=== PATIENT | male | born 1975 | race Two or more races ===

== ENCOUNTER 2025-02-19 13:00 | Inpatient (IN) | payer MEDICAID, OTHER ==
[~2025-02-19] VITALS: Ht 172.7 cm; Wt 55.8 kg
--- NOTE | 2025-02-19 13:11 | ED.PDOC ---
History of Present Illness HPI Comments 49-year-old male who comes in with chief complaint of altered mental status. The patient recently got out [facility] a few months ago in his currently living with family. According to the family, the patient has been ill over the past three days and then this morning became somewhat altered. 911 was called and when the paramedics arrived, the patient had a systolic of around 70. The patient had a normal Accu-Chek. EN route, the patient remained altered but no nausea vomiting or diarrhea. The patient is unable to give us the history because he is only oriented x1. The patient is somewhat cachectic upon transport. Time Seen by MD: 13:04 Reviewed Notes: Nurses Notes, Limousine Driver Notes, Medications, Allergies (NKDA) Allergies: Coded Allergies: UNOBTAINABLE (Unverified , 02/19/25) PT IS ALOC, UNABLE TO OBTAIN Information Source: Patient, Emergency Med Personnel Mode of Arrival: EMS Severity: Moderate Timing: Days Duration: Since onset Prehospital treatment: Scientist Propagator, IVF Associated signs and symptoms Generalized weakness Past Medical History PAST MEDICAL HISTORY: GERD, Liver (Hepatitis-C) Past Medical History (Other): Waterfall's disease Surgical History: Unknown Family History Family History: Unknown Social History Smoker: Unknown Alcohol: Unknown Drugs: Unknown Lives In: Home Constitutional: reports: malaise, weakness; denies: chills, diaphoresis, fatigue, fever, sweats, others EENTM: denies: blurred vision, double vision, ear bleeding, ear discharge, ear drainage, ear pain, ear ringing, eye pain, eye redness, hearing loss, mouth pain, mouth swelling, nasal discharge, nose bleeding, nose congestion, nose pain, photophobia, tearing, throat pain, throat swelling, voice changes, others Respiratory: denies: cough, hemoptysis, orthopnea, SOB at rest, shortness of breath, SOB with excertion, stridor, wheezing, others Cardiovascular: denies: chest pain, dizzy spells, diaphoresis, Dyspnea on exertion, edema, irregular heart beat, left arm pain, lightheadedness, palpitations, PND, syncope, others Gastrointestinal: denies: abdomen distended, abdominal pain, blood streaked bowels, constipated, diarrhea, dysphagia, difficulty swallowing, hematemesis, melena, nausea, poor appetite, poor fluid intake, rectal bleeding, rectal pain, vomiting, others Genitourinary: denies: burning, dysuria, flank pain, frequency, hematuria, incontinence, penile discharge, penile sore, pain, testicle pain, testicle swelling, urgency, others Neurological: reports: others (Altered mental status); denies: dizziness, fainting, headache, left sided numbness, left sided weakness, numbness, paresthesia, pre-existing deficit, right sided numbness, right sided weakness, seizure, speech problems, tingling, tremors, weakness Musculoskeletal: denies: back pain, gout, joint pain, joint swelling, muscle pain, muscle stiffness, neck pain, others Integumetry: denies: bruises, change in color, change in hair/nails, dryness, laceration, lesions, lumps, rash, wounds, others Allergic/Immunocompromised: denies: Difficulty Healing, Frequent Infections, Hives, Itching, others Hematologic/Lymphatic: denies: anemia, blood clots, easy bleeding, easy bruising, swollen glands, others Endocrine: denies: excessive hunger, excessive sweating, excessive thirst, excessive urination, flushing, intolerance to cold, intolerance to heat, unexplained weight gain, unexplained weight loss, others Psychiatric: denies: anxiety, bipolar disorder, depression, hopeless, panic disorder, schizophrenia, sleepless, suicidal, others Physical Exam General Appearance: Moderate Distress HEENT: Pale Conjuntivae (L), Pale Conjuntivae (R), Pharynx Normal, TMs Normal Neck: Full Range of Motion, Non-Tender, Normal, Normal Inspection Respiratory: Chest Non-Tender, Lungs Clear, No Accessory Muscle Use, No Respiratory Distress, Normal Breath Sounds Cardiovascular: No Edema, No JVD, No Murmur, No Gallop, Normal Peripheral Pulses, Regular Rate/Rhythm Breast Exam: Deferred Gastrointestinal: No Organomegaly, Non Tender, No Pulsatile Mass, Normal Bowel Sounds, Soft Genitalia: Deferred Pelvic: Deferred Rectal: Deferred Extremities: No calf tenderness, Normal capillary refill, No pedal edema Musculoskeletal : Apperance: Normal Neurologic: nocturnist II-XII nml as Tested, Motor Weakness, Normal Affect, No Sensory Deficits, Other (Lethargic) Cerebellar Function: Unable to Test Reflexes: Normal Skin: Dry, Pallor, Warm Lymphatic: No Adenopathy Was a procedure done? Was a procedure done?: No EKG EKG : Pulse Rate (adult): 112 [place]ley: Normal Cardiac Rhythm: ST Block: None ST: Nonsp Differential Dx Considerations may include: Sepsis, overdose, generalized weakness, electrolyte imbalance X-Ray, Labs, Meds, VS Vital Signs Date Time Temp Pulse Resp B/P (MAP) Pulse Ox O2 Delivery O2 Flow Rate FiO2 02/19/25 13:50 Simple Mask* 10 99 02/19/25 13:50 98.0 107 44 96/63 (74) 90 98.0 02/19/25 13:23 99.0 110 16 95/67 (76) 94 99.0 02/19/25 13:11 112 Lab Test 02/19/25 14:25 02/19/25 13:26 Range/Units Blood Gas Specimen Type Arterial Blood Gas Sample Site Right radial Blood Gas Patient Temperature 37.0 Arterial Blood Date Drawn [id number] Arterial Blood pH 7.459 H 7.350-7.450 Arterial Blood Partial Pressure CO2 33.2 L 35.0-48.0 mmHg Arterial Blood Partial Pressure O2 98.4 83.0-108.0 mmHg Arterial Blood HCO3 23.0 21.0-28.0 mmol/L Arterial Blood Oxygen Saturation 97.1 94.0-98.0 % Arterial Blood Base Excess -0.1 -2.0-3.0 mmol/L Arterial Blood Oxyhemoglobin 96.1 94.0-98.0 % Arterial Blood Carboxyhemoglobin 0.6 0.5-1.5 % Arterial Blood Methemoglobin 0.4 0.0-1.5 % Ash Test Yes Blood Gas Total Hemoglobin 13.50 13.5-17.5 g/dL Blood Gas Liter Flow 10.00 Blood Gas Modality Mask - simple FiO2 % 60.0 White Blood Count 7.0 4.4-10.8 10^3/uL Red Blood Count 3.88 L 4.5-5.90 10^6/uL Hemoglobin 11.8 L 13.5-17.5 g/dL Hematocrit 36.1 L 41.0-53.0 % Mean Corpuscular Volume 93.0 80.0-100.0 fL Mean Corpuscular Hemoglobin 30.3 28.0-32.0 pg Mean Corpuscular Hemoglobin Concent 32.6 32.0-36.0 g/dL Red Cell Distribution Width 14.5 H 11.8-14.3 % Platelet Count 245 140-450 10^3/uL Mean Platelet Volume 10.6 6.9-10.8 fL Neutrophils (%) (Auto) 71.9 37.0-80.0 % Lymphocytes (%) (Auto) 14.9 10.0-50.0 % Monocytes (%) (Auto) 11.0 0.0-12.0 % Eosinophils (%) (Auto) 2.0 0.0-7.0 % Basophils (%) (Auto) 0.2 0.0-2.0 % Neutrophils # (Auto) 5.0 1.6-8.6 10 ^3/uL Lymphocytes # (Auto) 1.0 0.4-5.4 10 ^3/uL Monocytes # (Auto) 0.8 0-1.3 10 ^3/uL Eosinophils # (Auto) 0.1 0-0.8 10 ^3/uL Basophils # (Auto) 0 0-0.2 10 ^3/uL Nucleated Red Blood Cells 0.1 % Sodium Level 175 *H 136-145 mmol/L Potassium Level 4.0 3.5-5.1 mmol/L Chloride Level 138 H 98-107 mmol/L Carbon Dioxide Level 23 20-31 mmol/L Anion Gap 12 5-15 Blood Urea Nitrogen 53 H 9-23 mg/dL Creatinine 1.06 0.700-1.30 mg/dL Glomerular Filtration Rate Calc 85 >90 mL/min BUN/Creatinine Ratio 50.0 H 10.0-20.0 Serum Glucose 108 H 74-106 mg/dL Serum Osmolality 382 H 278-298 mOsm/kg Lactic Acid Level 1.5 0.4-2.0 mmol/L Calcium Level 9.5 8.7-10.4 mg/dL Total Bilirubin 0.4 0.2-1.0 mg/dL Direct Bilirubin 0.2 <0.3 mg/dL Aspartate Amino Transferase (AST) 40 13-40 U/L Alanine Aminotransferase (ALT) 37 7-40 U/L Alkaline Phosphatase 81 46-116 U/L Ammonia 12 11-32 umol/L Total Protein 7.5 5.7-8.2 g/dL Albumin 4.1 3.2-4.8 g/dL Beta-Hydroxybutyric Acid 0.384 < 0.4 mmol/L Thyroid Stimulating Hormone (TSH) 0.03 L 0.55-4.78 uIU/mL Plasma/Serum Blood Alcohol < 3.0 <10 mg/dL Current Medications Medications (Trade) Dose Ordered Sig/Jj Route Start Time Stop Time Status Last Admin Sodium Chloride 1,000 ml @ 150 mls/hr Q6H40M ONCE IV 02/19/25 13:15 02/19/25 14:12 DC 02/19/25 13:50 Lactated Ringer's 1,000 ml @ 150 mls/hr Q6H40M ONCE IV 02/19/25 14:15 02/19/25 14:42 DC 02/19/25 14:28 Dextrose 1,000 ml @ 150 mls/hr Q6H40M ONCE IV 02/19/25 14:45 02/19/25 15:38 DC 02/19/25 14:49 IV Hep-Lock was established. The patient was given dextrose IV secondary in his sodium level being elevated at 175 The rest of the chemistry panel is within normal limits except for a BUN of 53 and a chloride of 138 The ammonia level is within normal limits The CBC shows some anemia with a hemoglobin of 11.8 and hematocrit 36.1 The ABG shows metabolic alkalosis The patient remained somewhat hypotensive The patient is being admitted at this time Cat scan of the head shows no sign of any acute disease The chest x-ray shows: IMPRESSION: Bibasilar interstitial opacities which may reflect atelectasis, infection or edema. Images Reviewed?: Images reviewed and evaluated by me Time of 1ST Reevaluation: 13:10 Reevaluation 1ST: Unchanged (With the patient's) Patient Education/Counseling: Diagnosis, Treatment, Prognosis Family Education/Counseling: No Family Present Sepsis Sepsis Reasesment Focused Exam Orders: Laboratory Tests 02/19/25 13:26: Lactic Acid Level 1.5 Departure 1 Departure Time of Disposition: 21:46 Impression: Primary Impression: Generalized weakness Additional Impressions: Hypernatremia Metabolic alkalosis Dehydration Disposition: ADMITTED INPATIENT Condition: Critical Critical Care Note Critical Care Time?: Yes (55 min-critical care time only) Stability Stability form required: Yes Unstable for transfer: ICU, CCU, PCU, YSABEL (Intensive VS monitoring), ED Physician Assesment (Clinical assesment) Heart Score Heart Score: Heart Score Response (Comments) Value History Moderate Suspicious 1 EKG Normal 0 Age 45-64 1 Risk Factors No known risk factors 0 Troponin Normal limit 0 Total 2 CHARLES LAINEZ MD Feb 19, 2025 13:11
[2025-02-19 13:43] LABS: Basophils # (auto) 0 10 ^3/uL (0-0.2); Basophils % (auto) 0.2 % (0.0-2.0); Eosinophils # (auto) 0.1 10 ^3/uL (0-0.8); Hematocrit 36.1 % (41.0-53.0); Hemoglobin 11.8 g/dL (13.5-17.5); Lymphocytes % (auto) 14.9 % (10.0-50.0); Mean Corpuscular Hemoglobin 30.3 pg (28.0-32.0); Mean Corpuscular Hgb Conc. 32.6 g/dL (32.0-36.0); Monocytes # (auto) 0.8 10 ^3/uL (0-1.3); Neutrophils % (auto) 71.9 % (37.0-80.0); Nucleated Red Blood Cells % 0.1 %; Platelet Count (auto) 245 10^3/uL (140-450); Red Blood Cells 3.88 10^6/uL (4.5-5.90); Red Cell Distribution Width 14.5 % (11.8-14.3)
[2025-02-19] MEDS: SODIUM CHLORIDE 0.9% 1,000 ML IV ONE (13:50)
[2025-02-19 13:55] LABS: Anion Gap 12 (5-15); Calcium 9.5 mg/dL (8.7-10.4); Carbon Dioxide 23 mmol/L (20-31)
[2025-02-19 14:01] LABS: Blood Alcohol < 3.0 mg/dL (<10); Blood Urea Nitrogen 53 mg/dL (9-23); Chloride 138 mmol/L (98-107); Glucose 108 mg/dL (74-106)
[2025-02-19 14:02] LABS: Sodium 173 mmol/L (136-145)
[2025-02-19] MEDS: LACTATED RINGER'S 1,000 ML IV ONE (14:28)
--- NOTE | 2025-02-19 14:31 | DVH ---
EXAM: XY CHEST PORTABLE Indication: aloc Technique: Single frontal view of the chest was obtained Comparison: None FINDINGS: Lines and Tubes: None Lungs: Bibasilar interstitial opacities. Pleura: No effusion. No pneumothorax. Cardiomediastinal contours: Unremarkable Bones: No acute osseous abnormality. IMPRESSION: Bibasilar interstitial opacities which may reflect atelectasis, infection or edema.
[2025-02-19 14:34] LABS: Base Excess -0.1 mmol/L (-2.0-3.0)
[2025-02-19] MEDS: D5W 5% 1,000 ML IV ONE (14:49)
[2025-02-19] MEDS ORDERED: VANCOMYCIN PER PHARMACY 0 MG IV SCH (15:30)
[2025-02-19] MEDS: LORazepam 2MG/ML-1ML VIAL IV ONE (15:38)
[2025-02-19 16:10] LABS: Albumin 4.1 g/dL (3.2-4.8); Bilirubin, Direct 0.2 mg/dL (<0.3); Bilirubin, Total 0.4 mg/dL (0.2-1.0); Total Protein 7.5 g/dL (5.7-8.2)
[2025-02-19] MEDS ORDERED: DEXTROSE (50%) 50ML SYRG IV PRN (16:45)
[2025-02-19] MEDS: MEROPENEM 1GM IVPB 50 ML IV ONE (16:49)
[2025-02-19] MEDS: D5W 5% 1,000 ML IV SCH (16:49)
[2025-02-19] MEDS: VANCOMYCIN 1GM/200ML PM 200 ML IV ONE (17:07)
--- NOTE | 2025-02-19 17:40 | ECG ---
[facility] Test Date: 2025-02-19 Test Time: 13:06:07 Pat Name: ALFREDO MELENDEZ Department: ED Room: [address] [place] [address] Gender: M Technical Sourcing Recruiter: JANELL : 1975 Requested By: CHARLES LAINEZ Order Number: [id number] Reading MD: Jaswinder Romero Measurements Intervals [place] Rate: 112 P: 65 CT: 119 QRS: 50 QRSD: 80 T: -12 QT: 343 QTc: 469 Interpretive Statements Sinus tachycardia Low voltage, precordial leads Nonspecific T abnormalities, anterior leads Electronically Signed On 02-20-2025 9:34:52 PDT by Jaswinder Romero Please click the below link to view image of tracing.
[2025-02-19] MEDS: ACCU-CHEK COMFORT CURVE STRIP VI SCH (18:07)
--- NOTE | 2025-02-19 18:34 | DVH ---
CT HEAD WITHOUT CONTRAST Indication: [facility] EXAM DATE: 02/19/2025 03:50 PM COMPARISON: None TECHNIQUE: CT of the head without intravenous contrast. RADIATION DOSE: CTDIvol: 62.69 mGy, DLP: 1235.18 mGy*cm FINDINGS: There is no intracranial hemorrhage. There is no extra-axial fluid, mass, mass effect or midline shif t. The ventricles are midline and normal in size. Basilar cisterns are patent. There are [id number] rate periventricular and subcortical white matter chronic microvascular ischemic changes. Moderate gl obal cerebral volume loss. The paranasal sinuses and mastoids are well-pneumatized. Imaged portion of the orbits are unremarkabl e. IMPRESSION: 1. No intracranial hemorrhage or mass effect. 2. [id number]-[id number] chronic microvascular ischemic changes. 3. Moderate global cerebral volume loss.
[2025-02-19 19:12] VITALS: PULSE 122; RESP 30; O2SAT 92
[2025-02-19 19:12] LABS: Free T3 2.69 pg/mL (2.3-4.2)
[2025-02-19] MEDS: LEVALBUTEROL HCL 1.25 MG/3 ML NEB NEB SCH (19:12)
[2025-02-19] MEDS: IPRATROPIUM BROM 0.5 MG/2.5ML INH SOL NEB SCH (19:12)
[2025-02-19 19:13] LABS: Free T4 (Free Thyroxine) 1.3 ng/dL (0.89-1.76)
[2025-02-19 19:22] VITALS: PULSE 120; RESP 28; O2SAT 95
[2025-02-19 19:41] VITALS: BP 101/65; PULSE 120; RESP 28; TEMP 98; O2SAT 95
[2025-02-19 21:25] LABS: COVID19 ANTIGEN SOFIA FIA NEGATIVE (NEGATIVE)
[2025-02-19 21:26] LABS: Rapid Influenza A Negative (Negative); Rapid Influenza B Negative (Negative)
[2025-02-19 21:59] VITALS: PULSE 107; PULSE 110; RESP 26; RESP 28; O2SAT 83; O2SAT 96
[2025-02-19] MEDS: MEROPENEM 1GM IVPB 50 ML IV SCH (22:11)
[2025-02-20] VITALS (88 sets, daily range): BP systolic 67–224; BP diastolic 29–195; PULSE 55–154; RESP 8–45; TEMP 98.9–100.3; O2SAT 79–100
--- NOTE | 2025-02-20 00:48 | DVHHP2 ---
HOUST[place] FunezJUAN RESIDENT 02/20/25 0048: History of Present Illness Reason for Visit: AMS History of Present Illness 49-year-old male with PMHx of Huntingtons disease, Hepatitis C, GERD, mood disorder, and long incarceration history (released 2 months ago after 25 years), presented from home with 3 days of progressive weakness, altered mental status, poor oral intake, cough, foul-smelling urine, and constipation. Family states he has been off and was found hypotensive with SBP in the 70s by EMS. PMHx: GERD Hepatitis C Huntingtons disease Adjustment disorder Mood disorder History of MRSA Surgical History: Mandibular fracture (prior) Cystoscopy & ureteroscopy Family History: Unknown Social History: Formerly incarcerated 25 years; now living with family. Smoker, alcohol, drug use unknown Medications: Amantadine, benztropine, mirtazapine, lorazepam, risperidone, pantoprazole, propranolol, ferrous sulfate, lactulose, tamsulosin, deuterabenazine, naloxone nasal spray Allergies: NKDA Review of Systems Review of Systems unable to obtain Allergies: Coded Allergies: UNOBTAINABLE (Unverified , 02/19/25) PT IS ALOC, UNABLE TO OBTAIN Medications Current Medications Medications Dose Ordered Sig/Jj Route Start Time Stop Time Status Last Admin Dose Admin Meropenem 50 ml @ 17 mls/hr Q8HR IV 02/19/25 22:00 02/19/25 22:11 17 MLS/HR Vancomycin HCl 0 ml @ 0 mls/hr UD IV 02/19/25 15:30 Lorazepam 1 mg Q5MINP PRN IV 02/19/25 15:30 Dextrose 1,000 ml @ 150 mls/hr Q6H40M IV 02/19/25 15:45 02/19/25 22:31 150 MLS/HR Pantoprazole Sodium 40 mg DAILY IV 02/20/25 10:00 Diagnostic Test (Pha) 1 strip Q6HR 02/19/25 18:00 02/20/25 00:09 1 STRIP Dextrose 50 ml UD PRN IV 02/19/25 16:45 Enoxaparin Sodium 40 mg DAILY SC 02/20/25 10:00 Vancomycin HCl 150 ml @ 150 mls/hr Q12H IV 02/20/25 05:00 Levalbuterol HCl 1.25 mg Q4HR NEB 02/19/25 18:30 6/4/25 21:59 1.25 MG Ipratropium Post 0.5 mg Q4HR NEB 02/19/25 18:30 02/19/25 21:59 0.5 MG Exam Vital Signs Vital Signs Date Time Temp Pulse Resp B/P (MAP) Pulse Ox O2 Delivery O2 Flow Rate FiO2 02/20/25 00:00 108 02/19/25 21:59 28 83 02/19/25 20:00 98.8 106/64 (78) 98.8 02/19/25 19:41 10.0 02/19/25 19:22 Oxymizer 02/19/25 19:22 N/A General Appearance: moderate distress (AOX0), Other HEENT: Other (dry mouth, poor oral hygine ) Respiratory: Clear to auscultation Cardiovascular: Regular rate, Other (tachycardic) Abdominal: Soft Extremities: No edema Neuro: Other (caquectic ) Labs/Xrays Labs Test 02/20/25 00:07 02/19/25 22:06 02/19/25 20:07 02/19/25 18:13 Range/Units POC Glucose 133 H 70-106 mg/dl Sodium Level 173 *H 136-145 mmol/L Influenza Type A Antigen Negative Negative Influenza Type B Antigen Negative Negative SARS-CoV-2 Antigen (Rapid) Negative NEGATIVE Free Thyroxine (T4) Calculated 1.30 0.89-1.76 ng/dL Free Triiodothyronine (T3) pg/mL 2.69 2.3-4.2 pg/mL Test 02/19/25 14:25 02/19/25 13:26 Range/Units Blood Gas Specimen Type Arterial Blood Gas Sample Site Right radial Blood Gas Patient Temperature 37.0 Arterial Blood Date Drawn [id number] Arterial Blood pH 7.459 H 7.350-7.450 Arterial Blood Partial Pressure CO2 33.2 L 35.0-48.0 mmHg Arterial Blood Partial Pressure O2 98.4 83.0-108.0 mmHg Arterial Blood HCO3 23.0 21.0-28.0 mmol/L Arterial Blood Oxygen Saturation 97.1 94.0-98.0 % Arterial Blood Base Excess -0.1 -2.0-3.0 mmol/L Arterial Blood Oxyhemoglobin 96.1 94.0-98.0 % Arterial Blood Carboxyhemoglobin 0.6 0.5-1.5 % Arterial Blood Methemoglobin 0.4 0.0-1.5 % Ash Test Yes Blood Gas Total Hemoglobin 13.50 13.5-17.5 g/dL Blood Gas Liter Flow 10.00 Blood Gas Modality Mask - simple FiO2 % 60.0 White Blood Count 7.0 4.4-10.8 10^3/uL Red Blood Count 3.88 L 4.5-5.90 10^6/uL Hemoglobin 11.8 L 13.5-17.5 g/dL Hematocrit 36.1 L 41.0-53.0 % Mean Corpuscular Volume 93.0 80.0-100.0 fL Mean Corpuscular Hemoglobin 30.3 28.0-32.0 pg Mean Corpuscular Hemoglobin Concent 32.6 32.0-36.0 g/dL Red Cell Distribution Width 14.5 H 11.8-14.3 % Platelet Count 245 140-450 10^3/uL Mean Platelet Volume 10.6 6.9-10.8 fL Neutrophils (%) (Auto) 71.9 37.0-80.0 % Lymphocytes (%) (Auto) 14.9 10.0-50.0 % Monocytes (%) (Auto) 11.0 0.0-12.0 % Eosinophils (%) (Auto) 2.0 0.0-7.0 % Basophils (%) (Auto) 0.2 0.0-2.0 % Neutrophils # (Auto) 5.0 1.6-8.6 10 ^3/uL Lymphocytes # (Auto) 1.0 0.4-5.4 10 ^3/uL Monocytes # (Auto) 0.8 0-1.3 10 ^3/uL Eosinophils # (Auto) 0.1 0-0.8 10 ^3/uL Basophils # (Auto) 0 0-0.2 10 ^3/uL Nucleated Red Blood Cells 0.1 % Potassium Level 4.0 3.5-5.1 mmol/L Chloride Level 138 H 98-107 mmol/L Carbon Dioxide Level 23 20-31 mmol/L Anion Gap 12 5-15 Blood Urea Nitrogen 53 H 9-23 mg/dL Creatinine 1.06 0.700-1.30 mg/dL Glomerular Filtration Rate Calc 85 >90 mL/min BUN/Creatinine Ratio 50.0 H 10.0-20.0 Serum Glucose 108 H 74-106 mg/dL Serum Osmolality 382 H 278-298 mOsm/kg Lactic Acid Level 1.5 0.4-2.0 mmol/L Calcium Level 9.5 8.7-10.4 mg/dL Total Bilirubin 0.4 0.2-1.0 mg/dL Direct Bilirubin 0.2 <0.3 mg/dL Aspartate Amino Transferase (AST) 40 13-40 U/L Alanine Aminotransferase (ALT) 37 7-40 U/L Alkaline Phosphatase 81 46-116 U/L Ammonia 12 11-32 umol/L Total Protein 7.5 5.7-8.2 g/dL Albumin 4.1 3.2-4.8 g/dL Beta-Hydroxybutyric Acid 0.384 < 0.4 mmol/L Thyroid Stimulating Hormone (TSH) 0.03 L 0.55-4.78 uIU/mL Plasma/Serum Blood Alcohol < 3.0 <10 mg/dL Assessment/Plan Assessment/Plan #Acute metabolic encephalopathy likely multifactorial (sepsis, Huntingtons, chronic illness, electrolyte derangement) #Severe Hypernatremia (Na 175), likely chronic NPO ICU status Slow correction with D5W 150cc/h Monitor Na q4h, avoid rapid shifts #[place] disease Oral meds will be restarted after stabilization home meds: amantadine, benztropine, mirtazapine, deuterabenazine Continue supportive care DNR/DNI: chemical code CT head: ischemic chronic changes, global atrophy #Sepsis Likely secondary to UTI and Aspiration pneumonia #Complicated UTI #Possible pneumonia gram +/ gram- . CXR reviewed Blood and urine cultures, UA pending Started on IV fluids, vancomycin, meropenem Fry insertion ordered #Constipation lactulose will be restarted after stabilization #GERD Protonix IV #Ho/Hepatitis C monitor Disposition: ICU due to severe hypernatremia Code status: chemical code: no compressions, no defibrillation, no intubation, discussed with the brother for 22 min Case discussed with Dr Alfred Ambrocio discussed with: Other (brother, rn ) My Orders Orders - JUAN CRUZ RESIDENT Procedure Category Date Status Time Urine Sodium LAB 02/19/25 Logged 14:46 Admit ADMIT 02/19/25 Transmitted 15:23 Code Status CODE 02/19/25 Transmitted 15:23 Vital Signs ELIER 02/19/25 In Process 15:23 Review Orders With ELIER 02/19/25 In Process Adm. 15:23 Npo (Nothing By DIET 02/19/25 Transmitted Mouth) Diet Dinner Notify Md Of Changes ELIER 02/19/25 In Process From Base 15:23 Advance Directive ELIER 02/19/25 In Process 15:23 Patient Condition ORDERS 02/19/25 Transmitted 15:23 Allergies ELIER 02/19/25 In Process 15:23 Meropenem 1gm Ivpb PHA 02/19/25 In Process (Merrem 1gm/ Ns) 22:00 Vancomycin Per PHA 02/19/25 In Process Pharmacy 15:30 Respiratory Culture TRINH 02/19/25 Logged W/ Gs 15:28 Urine Bacterial TRINH 02/19/25 Logged Culture 15:28 Mrsa Screen TRINH 02/19/25 In Process 15:28 Strict Aspiration ELIER 02/19/25 In Process Precautions 15:28 Lorazepam 2mg/Ml Inj PHA 02/19/25 In Process (Ativan Inj) 15:30 Insert Midline ORDERS 02/19/25 Transmitted 15:30 Sodium LAB 02/20/25 Logged 02:00 Sodium LAB 02/20/25 Logged 06:00 Sodium LAB 02/20/25 Logged 10:00 Sodium LAB 02/20/25 Logged 14:00 Sodium LAB 02/20/25 Logged 18:00 Sodium LAB 02/20/25 Logged 22:00 D5w 5% (Dextrose 5%) PHA 02/19/25 In Process 15:45 Acute Hepatitis Panel LAB 02/19/25 In Process 15:37 Pantoprazole PHA 02/20/25 In Process (Protonix) 10:[address] 02/19/25 Resulted 15:39 Insert Fry Catheter ELIER 02/19/25 In Process 15:55 Communication Order ORDERS 02/19/25 Transmitted 15:55 Glucose Blood PHA 02/19/25 In Process (Accu-Chek Comfort 18:00 Dextrose 50% Syringe PHA 02/19/25 In Process 16:45 Enoxaparin Sodium PHA 02/20/25 In Process (Lovenox) 10:00 Vancomycin PHA 02/20/25 In Process 750mg/150ml 05:00 Vancomycin,Trough LAB 02/21/25 Verified 04:00 Vancomycin Per ELIER 02/21/25 In Process Pharmacy Protoc 05:00 Creatinine LAB 02/21/25 Verified 04:00 Creatinine LAB 02/20/25 Logged 06:00 Date of Service: Feb 19, 2025 Billing Provider: VY LEE MD Common Visit Codes: 09588-[id number] INP/OBS CARE (HIGH), 54642-[id number] CARE 30- 74 MIN Secondary Visit Codes: 95332-[id number] CARE PLAN 30 MINUTES VY LEE MD 02/20/25 1344: Review of Systems Allergies: Coded Allergies: UNOBTAINABLE (Unverified , 02/19/25) PT IS ALOC, UNABLE TO OBTAIN Date of Service: Feb 19, 2025 Billing Provider: VY LEE MD Common Visit Codes: 00356-[id number] CARE 30-74 MIN (critical care time spent 60 minutes) JAUN CRUZ RESIDENT Feb 20, 2025 00:48 VY LEE MD Feb 20, 2025 13:44
[2025-02-20] MEDS: LORazepam 2MG/ML-1ML VIAL IV ONE (01:07)
[2025-02-20] MEDS: NOREPINEPHRINE 8 MG/250ML KIT 250 ML IV ONE (04:32)
[2025-02-20] MEDS: VANCOMYCIN 750mg/150ml 150 ML IV SCH (04:40)
[2025-02-20] MEDS: NOREPINEPHRINE 8 MG/250ML KIT 250 ML IV SCH ×2 (04:41→05:45)
[2025-02-20 06:34] LABS: Basophils # (auto) 0 10 ^3/uL (0-0.2); Basophils % (auto) 0.2 % (0.0-2.0); Eosinophils # (auto) 0.2 10 ^3/uL (0-0.8); Eosinophils % (auto) 3.5 % (0.0-7.0); Hematocrit 42.8 % (41.0-53.0); Hemoglobin 13.5 g/dL (13.5-17.5); Lymphocytes # (auto) 0.9 10 ^3/uL (0.4-5.4); Lymphocytes % (auto) 12.9 % (10.0-50.0); Mean Corpuscular Hemoglobin 30.1 pg (28.0-32.0); Mean Corpuscular Hgb Conc. 31.6 g/dL (32.0-36.0); Mean Corpuscular Volume 95.4 fL (80.0-100.0); Monocytes # (auto) 0.7 10 ^3/uL (0-1.3); Monocytes % (auto) 10.9 % (0.0-12.0); Neutrophils # (auto) 4.8 10 ^3/uL (1.6-8.6); Neutrophils % (auto) 72.5 % (37.0-80.0); Nucleated Red Blood Cells % 0.1 %; Platelet Count (auto) 202 10^3/uL (140-450); Red Blood Cells 4.49 10^6/uL (4.5-5.90); Red Cell Distribution Width 15.5 % (11.8-14.3); White Blood Cell 6.6 10^3/uL (4.4-10.8)
[2025-02-20 06:46] LABS: Alanine Aminotransferase 38 U/L (7-40); Albumin 4.1 g/dL (3.2-4.8); Alkaline Phosphatase 80 U/L (46-116); Anion Gap 14 (5-15); BUN/Creatinine Ratio 39.6 (10.0-20.0); Bilirubin, Total 0.3 mg/dL (0.2-1.0); Calcium 9.2 mg/dL (8.7-10.4); Carbon Dioxide 21 mmol/L (20-31); Potassium 4.6 mmol/L (3.5-5.1); Total Protein 7.5 g/dL (5.7-8.2)
[2025-02-20] MEDS: LORazepam 2MG/ML-1ML VIAL IM ONE (07:18)
[2025-02-20 07:32] LABS: Chloride 132 mmol/L (98-107)
[2025-02-20 07:33] LABS: Aspartate Aminotransferase 45 U/L (13-40); Blood Urea Nitrogen 40 mg/dL (9-23); Glucose 162 mg/dL (74-106)
[2025-02-20 07:34] LABS: Sodium 167 mmol/L (136-145)
[2025-02-20] MEDS: PANTOPRAZOLE 40 MG/10 ML VIAL INJ IV SCH (10:15)
[2025-02-20] MEDS: ENOXAPARIN SOD 40 MG/0.4 ML SYRINGE SC SCH (10:27)
[2025-02-20 10:44] LABS: Magnesium 3.2 mg/dL (1.6-2.6)
[2025-02-20 10:45] LABS: Phosphorus 3.6 mg/dL (2.4-5.1)
[2025-02-20] MEDS: HALOPERIDOL LACTATE 5 MG/ML INJ VIAL IM PRN ×2 (10:47→18:32)
--- NOTE | 2025-02-20 11:56 | DVHPNRES ---
Progress Note Date Seen: Feb 20, 2025 Resident Creating Document: JUAN CRUZ RESIDENT Has the PT tested + for MRSA If YES, has PT been informed?: No Medical Necessity Reason Pt with a Central, PICC or Fol: No Subjective Review of Systems 49-year-old male with PMHx of Huntingtons disease, Hepatitis C, GERD, mood disorder, and long incarceration history (released 2 months ago after 25 years), presented from home with 3 days of progressive weakness, altered mental status, poor oral intake, cough, foul-smelling urine, and constipation. Family states he has been off and was found hypotensive with SBP in the 70s by EMS. PMHx: GERD Hepatitis C Huntingtons disease Adjustment disorder Mood disorder History of MRSA Surgical History: Mandibular fracture (prior) Cystoscopy & ureteroscopy Family History: Unknown Social History: Formerly incarcerated 25 years; now living with family. Smoker, alcohol, drug use unknown Medications: Amantadine, benztropine, mirtazapine, lorazepam, risperidone, pantoprazole, propranolol, ferrous sulfate, lactulose, tamsulosin, deuterabenazine, naloxone nasal spray 02/20/2025: Na 165, continue D5W at 150cc/h, urology consulted, CT scan ordered: showed bladder thickening, possible lung consolidations and large volume stool, bladder scan less than 200 no need of cystostomy for now but if distention suprapubic puncture will be performed, mild fevers, continue vanco/ meropenem, patient was in low dose levophed since midnight Objective vital signs Vital Sign Date Time Temp Pulse Resp B/P (MAP) Pulse Ox O2 Delivery O2 Flow Rate FiO2 02/20/25 10:04 106 17 97 02/20/25 09:00 90/52 (65) 02/20/25 08:16 98.9 98.9 02/20/25 06:16 Oxymizer 12.0 02/20/25 06:16 N/A Total Intake and Output 02/19/25 02/19/25 02/20/25 15:00 23:00 07:00 Intake Total 1250 ml 950.5 ml Balance 1250 ml 950.5 ml medications Current Medications Medications Dose Ordered Sig/Jj Route Start Time Stop Time Status Last Admin Dose Admin Meropenem 50 ml @ 17 mls/hr Q8HR IV 02/19/25 22:00 02/20/25 06:04 17 MLS/HR Vancomycin HCl 0 ml @ 0 mls/hr UD IV 02/19/25 15:30 Lorazepam 1 mg Q5MINP PRN IV 02/19/25 15:30 Dextrose 1,000 ml @ 150 mls/hr Q6H40M IV 02/19/25 15:45 02/20/25 03:49 150 MLS/HR Pantoprazole Sodium 40 mg DAILY IV 02/20/25 10:00 02/20/25 10:15 40 MG Diagnostic Test (Pha) 1 strip Q6HR 02/19/25 18:00 02/20/25 06:28 1 STRIP Dextrose 50 ml UD PRN IV 02/19/25 16:45 Enoxaparin Sodium 40 mg DAILY SC 02/20/25 10:00 02/20/25 10:27 40 MG Vancomycin HCl 150 ml @ 150 mls/hr Q12H IV 02/20/25 05:00 02/20/25 04:40 150 MLS/HR Levalbuterol HCl 1.25 mg Q4HR NEB 02/19/25 18:30 02/20/25 09:49 1.25 MG Ipratropium [place] 0.5 mg Q4HR NEB 02/19/25 18:30 02/20/25 09:49 0.5 MG Norepinephrine Bitartrate 250 ml @ 3.75 mls/hr Q24H IV 02/20/25 05:45 Haloperidol Lactate 2.5 mg Q8HP PRN IM 02/20/25 10:00 02/20/25 10:47 2.5 MG Examination General Appearance: moderate distress (AOX0), Other HEENT: Other (dry mouth, poor oral hygine ) Respiratory: Clear to auscultation Cardiovascular: Regular rate, Other (tachycardic) Abdominal: Soft Extremities: No edema Neuro: Other (caquectic ) laboratory and microbiology Laboratory Tests 02/20/25 10:21 02/20/25 05:53 Test 02/20/25 05:53 Range/Units Serum Glucose 162 H 74-106 mg/dL Problem List/Assessment/Plan Problem List/Assessment/Plan #Acute metabolic encephalopathy likely multifactorial (sepsis, Huntingtons, chronic illness, electrolyte derangement) #Severe Hypernatremia (Na 175), likely chronic NPO ICU status Slow correction with D5W 150cc/h Monitor Na q4h, avoid rapid shifts #[place] disease Oral meds will be restarted after stabilization home meds: amantadine, benztropine, mirtazapine, deuterabenazine Continue supportive care DNR/DNI: chemical code CT head: ischemic chronic changes, global atrophy #Sepsis Likely secondary to UTI and Aspiration pneumonia levophed 0.5 mcg #Complicated UTI #Possible pneumonia gram +/ gram- . CXR reviewed Blood and urine cultures, UA pending Started on IV fluids, vancomycin, meropenem CT scan ordered: showed bladder thickening, possible lung consolidations and large volume stool #Constipation lactulose will be restarted after stabilization #GERD Protonix IV #Ho/Hepatitis C monitor #Urethral stricture disease #Possible false urethral passage #Urinary incontinence Bladder scan: 197 cc If bladder is distended, please request Interventional Radiology to place a temporary suprapubic catheter. When patient was metabolically stable, we will consider performing a diagnostic cystoscopy and possible DVIU 02/20/2025: Na 165, continue D5W at 150cc/h, urology consulted, CT scan ordered: showed bladder thickening, possible lung consolidations and large volume stool, bladder scan less than 200 no need of cystostomy for now but if distention suprapubic puncture will be performed, mild fevers, continue vanco/ meropenem, patient was in low dose levophed since midnight Disposition: ICU due to severe hypernatremia Code status: chemical code: no compressions, no defibrillation, no intubation, discussed with the brother for 22 min Case discussed with Dr Lee Plan discussed with: Patient, Other My Orders My Orders Orders - JUAN CRUZ RESIDENT Procedure Category Date Status Time Admit ADMIT 02/19/25 Transmitted 15:23 Code Status CODE 02/19/25 Transmitted 15:23 Vital Signs ELIER 02/19/25 In Process 15:23 Review Orders With ELIER 02/19/25 In Process Adm. 15:23 Npo (Nothing By DIET 02/19/25 Transmitted Mouth) Diet Dinner Notify Md Of Changes ELIER 02/19/25 In Process From Base 15:23 Advance Directive ELIER 02/19/25 In Process 15:23 Patient Condition ORDERS 02/19/25 Transmitted 15:23 Allergies ELIER 02/19/25 In Process 15:23 Meropenem 1gm Ivpb PHA 02/19/25 In Process (Merrem 1gm/ Ns) 22:00 Vancomycin Per PHA 02/19/25 In Process Pharmacy 15:30 Respiratory Culture TRINH 02/19/25 Logged W/ Gs 15:28 Urine Bacterial TRINH 02/19/25 Logged Culture 15:28 Mrsa Screen TRINH 02/19/25 In Process 15:28 Strict Aspiration ELIER 02/19/25 In Process Precautions 15:28 Lorazepam 2mg/Ml Inj PHA 02/19/25 In Process (Ativan Inj) 15:30 Insert Midline ORDERS 02/19/25 Transmitted 15:30 Sodium LAB 02/20/25 Logged 14:00 Sodium LAB 02/20/25 Logged 18:00 Sodium LAB 02/20/25 Logged 22:00 D5w 5% (Dextrose 5%) PHA 02/19/25 In Process 15:45 Acute Hepatitis Panel LAB 02/19/25 In Process 15:37 Pantoprazole PHA 02/20/25 In Process (Protonix) 10:[address] 02/19/25 Resulted 15:39 Insert Fry Catheter ELIER 02/19/25 In Process 15:55 Communication Order ORDERS 02/19/25 Transmitted 15:55 Glucose Blood PHA 02/19/25 In Process (Accu-Chek Comfort 18:00 Dextrose 50% Syringe PHA 02/19/25 In Process 16:45 Enoxaparin Sodium PHA 02/20/25 In Process (Lovenox) 10:00 Vancomycin PHA 02/20/25 In Process 750mg/150ml 05:00 Vancomycin,Trough LAB 02/21/25 Verified 04:00 Vancomycin Per ELIER 02/21/25 In Process Pharmacy Protoc 05:00 Creatinine LAB 02/21/25 Verified 04:00 * Wound Consult CONS 02/20/25 Transmitted Strict I & O ELIER 02/20/25 In Process 09:32 Haloperidol Lactate PHA 02/20/25 In Process Injection (Haldol) 10:00 * Swallow Request ST 02/20/25 Transmitted 09:59 * Picc Line Consult CONS 02/20/25 Transmitted 11:23 Date of Service: Feb 20, 2025 Billing Provider: VY LEE MD Common Visit Codes: 33709-[id number] INP/OBS CARE(HIGH) JUAN CRUZ RESIDENT Feb 20, 2025 11:56 VY LEE MD Feb 21, 2025 20:11
--- NOTE | 2025-02-20 15:01 | DVHINCON2 ---
Date of service: Feb 20, 2025 Referring Physician Hospitalist Reason for Consultation Unable to place catheter Urinary incontinence History of Present Illness 49-year-old male who comes in with chief complaint of altered mental status. The patient recently got out of long term a few months ago in his currently living with family. According to the family, the patient has been ill over the past three days and then this morning became somewhat altered. 911 was called and when the paramedics arrived, the patient had a systolic of around 70. The patient had a normal Accu-Chek. EN route, the patient remained altered but no nausea vomiting or diarrhea. The patient is unable to give us the history because he is only oriented x1. The patient is somewhat cachectic upon transport. Reviewed Notes: Nurses Notes, Senior Marketing Specialist Notes, Medications, Allergies (NKDA) Allergies: Coded Allergies: UNOBTAINABLE (Unverified , 02/19/25) PT IS ALOC, UNABLE TO OBTAIN Information Source: Patient, Emergency Med Personnel Mode of Arrival: EMS Severity: Moderate Timing: Days Duration: Since onset Prehospital treatment: Pressure Tester Operator, IVF Associated signs and symptoms Generalized weakness Past Medical History GERD, Liver (Hepatitis-C) Past Medical History (Other): [place]'s disease Past Surgical History Previous history of suprapubic catheter placement Allergies: Coded Allergies: UNOBTAINABLE (Unverified , 02/19/25) PT IS ALOC, UNABLE TO OBTAIN Current Medications Current Medications Medications (Trade) Dose Ordered Sig/Jj Route PRN Reason Start Time Stop Time Status Last Admin Meropenem 50 ml @ 17 mls/hr Q8HR IV 02/19/25 22:00 02/20/25 14:24 Vancomycin HCl 0 ml @ 0 mls/hr UD IV 02/19/25 15:30 Lorazepam (Ativan Inj) 1 mg Q5MINP PRN IV SEIZURES 02/19/25 15:30 Dextrose 1,000 ml @ 150 mls/hr Q6H40M IV 02/19/25 15:45 02/20/25 12:37 Pantoprazole Sodium (Protonix) 40 mg DAILY IV 02/20/25 10:00 02/20/25 10:15 Diagnostic Test (Pha) (Accu-Chek Comfort Curve T) 1 strip Q6HR 02/19/25 18:00 02/20/25 12:38 Dextrose 50 ml UD PRN IV Blood Sugar LESS THAN 60 02/19/25 16:45 Enoxaparin Sodium (Lovenox) 40 mg DAILY SC 02/20/25 10:00 02/20/25 10:27 Vancomycin HCl 150 ml @ 150 mls/hr Q12H IV 02/20/25 05:00 02/20/25 04:40 Levalbuterol HCl (Xopenex Medneb) 1.25 mg Q4HR NEB 02/19/25 18:30 02/20/25 14:05 Ipratropium [place] (Atrovent Medneb) 0.5 mg Q4HR NEB 02/19/25 18:30 02/20/25 14:05 Norepinephrine Bitartrate 250 ml @ 3.75 mls/hr Q24H IV 02/20/25 04:30 02/20/25 05:37 DC 02/20/25 04:41 Norepinephrine Bitartrate 250 ml @ 3.75 mls/hr Q24H IV 02/20/25 05:45 Haloperidol Lactate (Haldol) 2.5 mg Q8HP PRN IM AGITATION 02/20/25 10:00 02/20/25 13:39 DC 02/20/25 10:47 Haloperidol Lactate (Haldol) 5 mg Q8HP PRN IM AGITATION 02/20/25 13:45 Review of Systems Constitutional: reports: malaise, weakness; denies: chills, diaphoresis, fatigue, fever, sweats, others EENTM: denies: blurred vision, double vision, ear bleeding, ear discharge, ear drainage, ear pain, ear ringing, eye pain, eye redness, hearing loss, mouth pain, mouth swelling, nasal discharge, nose bleeding, nose congestion, nose leeanna n, photophobia, tearing, throat pain, throat swelling, voice changes, others Respiratory: denies: cough, hemoptysis, orthopnea, SOB at rest, shortness of breath, SOB with excertion, stridor, wheezing, others Cardiovascular: denies: chest pain, dizzy spells, diaphoresis, Dyspnea on exertion, edema, irregular heart beat, left arm pain, lightheadedness, palpitations, PND, syncope, others Gastrointestinal: denies: abdomen distended, abdominal pain, blood streaked bowels, constipated, diarrhea, dysphagia, difficulty swallowing, hematemesis, melena, nausea, poor appetite, poor fluid intake, rectal bleeding, rectal pain, vomiting, others Genitourinary: Patient has urinary incontinence Neurological: reports: others (Altered mental status); denies: dizziness, fainting, headache, left sided numbness, left sided weakness, numbness, paresthesia, pre-existing deficit, right sided numbness, right sided weakness, seizure, speech problems, tingling, tremors, weakness Musculoskeletal: denies: back pain, gout, joint pain, joint swelling, muscle pain, muscle stiffness, neck pain, others Integumetry: denies: bruises, change in color, change in hair/nails, dryness, laceration, lesions, lumps, rash, wounds, others Allergic/Immunocompromised: denies: Difficulty Healing, Frequent Infections, Hives, Itching, others Hematologic/Lymphatic: denies: anemia, blood clots, easy bleeding, easy bruising, swollen glands, others Endocrine: denies: excessive hunger, excessive sweating, excessive thirst, excessive urination, flushing, intolerance to cold, intolerance to heat, unexpla ined weight gain, unexplained weight loss, others Psychiatric: denies: anxiety, bipolar disorder, depression, hopeless, panic disorder, schizophrenia, sleepless, suicidal, others Vital Signs Vital Signs Date Time Temp Pulse Resp B/P (MAP) Pulse Ox O2 Delivery O2 Flow Rate FiO2 02/20/25 14:20 92 22 99 02/20/25 13:26 104/29 (54) 02/20/25 12:01 99.6 99.6 02/20/25 06:16 Oxymizer 12.0 02/20/25 06:16 N/A Physical Exam General Appearance: Moderate Distress HEENT: Pale Conjuntivae (L), Pale Conjuntivae (R), Pharynx Normal, TMs Normal Neck: Full Range of Motion, Non-Tender, Normal, Normal Inspection Respiratory: Chest Non-Tender, Lungs Clear, No Accessory Muscle Use, No Respiratory Distress, Normal Breath Sounds Cardiovascular: No Edema, No JVD, No Murmur, No Gallop, Normal Peripheral Pulses, Regular Rate/Rhythm Breast Exam: Deferred Gastrointestinal: No Organomegaly, Non Tender, No Pulsatile Mass, Normal Bowel Sounds, Soft Genitalia: Normal external genitalia Pelvic: Deferred Rectal: Deferred Extremities: No calf tenderness, Normal capillary refill, No pedal edema Musculoskeletal : Apperance: Normal Neurologic: staff climate scientist II-XII nml as Tested, Motor Weakness, Normal Affect, No Sensory Deficits, Other (Lethargic) Cerebellar Function: Unable to Test Reflexes: Normal Skin: Dry, Pallor, Warm Lymphatic: No Adenopathy Labs/Diagnostic Data Labs Test 02/20/25 14:46 02/20/25 06:13 02/20/25 05:53 02/19/25 22:06 Range/Units POC Glucose 149 H 70-106 mg/dl White Blood Count 6.6 4.4-10.8 10^3/uL Red Blood Count 4.49 L 4.5-5.90 10^6/uL Hemoglobin 13.5 13.5-17.5 g/dL Hematocrit 42.8 # 41.0-53.0 % Mean Corpuscular Volume 95.4 80.0-100.0 fL Mean Corpuscular Hemoglobin 30.1 28.0-32.0 pg Mean Corpuscular Hemoglobin Concent 31.6 L 32.0-36.0 g/dL Red Cell Distribution Width 15.5 H 11.8-14.3 % Platelet Count 202 140-450 10^3/uL Mean Platelet Volume 10.8 6.9-10.8 fL Neutrophils (%) (Auto) 72.5 37.0-80.0 % Lymphocytes (%) (Auto) 12.9 10.0-50.0 % Monocytes (%) (Auto) 10.9 0.0-12.0 % Eosinophils (%) (Auto) 3.5 0.0-7.0 % Basophils (%) (Auto) 0.2 0.0-2.0 % Neutrophils # (Auto) 4.8 1.6-8.6 10 ^3/uL Lymphocytes # (Auto) 0.9 0.4-5.4 10 ^3/uL Monocytes # (Auto) 0.7 0-1.3 10 ^3/uL Eosinophils # (Auto) 0.2 0-0.8 10 ^3/uL Basophils # (Auto) 0 0-0.2 10 ^3/uL Nucleated Red Blood Cells 0.1 % Potassium Level 4.6 3.5-5.1 mmol/L Chloride Level 132 H 98-107 mmol/L Carbon Dioxide Level 21 20-31 mmol/L Anion Gap 14 5-15 Blood Urea Nitrogen 40 #H 9-23 mg/dL Creatinine 1.01 0.700-1.30 mg/dL Glomerular Filtration Rate Calc 90 >90 mL/min BUN/Creatinine Ratio 39.6 H 10.0-20.0 Serum Glucose 162 H 74-106 mg/dL Hemoglobin A1c 5.0 <5.7 % A1C Calcium Level 9.2 8.7-10.4 mg/dL Phosphorus Level 3.6 2.4-5.1 mg/dL Magnesium Level 3.2 H 1.6-2.6 mg/dL Total Bilirubin 0.3 0.2-1.0 mg/dL Aspartate Amino Transferase (AST) 45 H 13-40 U/L Alanine Aminotransferase (ALT) 38 7-40 U/L Alkaline Phosphatase 80 46-116 U/L Total Protein 7.5 5.7-8.2 g/dL Albumin 4.1 3.2-4.8 g/dL Test 02/19/25 20:07 02/19/25 18:13 02/19/25 14:25 02/19/25 13:26 Range/Units Influenza Type A Antigen Negative Negative Influenza Type B Antigen Negative Negative SARS-CoV-2 Antigen (Rapid) Negative NEGATIVE Free Thyroxine (T4) Calculated 1.30 0.89-1.76 ng/dL Free Triiodothyronine (T3) pg/mL 2.69 2.3-4.2 pg/mL Blood Gas Specimen Type Arterial Blood Gas Sample Site Right radial Blood Gas Patient Temperature 37.0 Arterial Blood Date Drawn [id number] Arterial Blood pH 7.459 H 7.350-7.450 Arterial Blood Partial Pressure CO2 33.2 L 35.0-48.0 mmHg Arterial Blood Partial Pressure O2 98.4 83.0-108.0 mmHg Arterial Blood HCO3 23.0 21.0-28.0 mmol/L Arterial Blood Oxygen Saturation 97.1 94.0-98.0 % Arterial Blood Base Excess -0.1 -2.0-3.0 mmol/L Arterial Blood Oxyhemoglobin 96.1 94.0-98.0 % Arterial Blood Carboxyhemoglobin 0.6 0.5-1.5 % Arterial Blood Methemoglobin 0.4 0.0-1.5 % Ash Test Yes Blood Gas Total Hemoglobin 13.50 13.5-17.5 g/dL Blood Gas Liter Flow 10.00 Blood Gas Modality Mask - simple FiO2 % 60.0 Serum Osmolality 382 H 278-298 mOsm/kg Lactic Acid Level 1.5 0.4-2.0 mmol/L Direct Bilirubin 0.2 <0.3 mg/dL Ammonia 12 11-32 umol/L Beta-Hydroxybutyric Acid 0.384 < 0.4 mmol/L Thyroid Stimulating Hormone (TSH) 0.03 L 0.55-4.78 uIU/mL Plasma/Serum Blood Alcohol < 3.0 <10 mg/dL Microbiology Date/Time Source Procedure Growth Status 02/19/25 13:26 Blood Blood Culture - Preliminary NO GROWTH AFTER 24 HOURS OF INCUBATION. Resulted Assessment Urethral stricture disease Possible false urethral passage Urinary incontinence Metabolic derangement with hyponatremia Plan/Recommendation Bladder scan CT scan abdomen and pelvis noncontrast If bladder is distended, please request Interventional Radiology to place a temporary suprapubic catheter. When patient was metabolically stable, we will consider performing a diagnostic cystoscopy and possible DVIU Plan discussed with: Other CHETAN RITTER MD Feb 20, 2025 15:01
--- NOTE | 2025-02-20 16:35 | DVH ---
Indication: urinary retention Technique: CT axial images of the abdomen and pelvis are obtained without contrast. Coronal and sagit srinivas reformats were obtained. Radiation Dose Information: CTDI volume is 7.52 mGy. Dose-length product is 396.67 mGy*cm Comparison: None FINDINGS: There is limited interpretation of the abdomen and pelvis without administration of intravenous contr ast. Bibasilar pulmonary consolidation. Adrenal glands, spleen, pancreas unremarkable in shape. Subcentimeter hepatic hypodensities too smal l to characterize, statistically likely representing cysts. No CT evidence for cholelithiasis. No hydronephrosis / nephrolithiasis. Moderate size hiatal hernia. Moderate distention of the small bowel loops. Large volume stool throughout the colon. No secondary signs for appendicitis. Bladder partially distended. Bladder wall thickening up to 12 mm. No free pelvic fluid. No inguinal lymphadenopathy. [id number] thoracolumbar degenerative disc disease. IMPRESSION: Examination degraded by motion. 1. Large volume stool throughout the colon suggesting constipation. 2. Bladder wall thickening up to 12 mm which can be secondary to cystitis, neurogenic bladder, outlet obstruction, infiltrative etiologies. 3. Bibasilar pulmonary consolidation/atelectasis. 4. Hiatal hernia. 5. Other findings as described.
[2025-02-21] VITALS (49 sets, daily range): BP systolic 82–130; BP diastolic 37–78; PULSE 58–115; RESP 15–46; TEMP 97.4–99.8; O2SAT 90–100
[2025-02-21 04:18] LABS: Basophils # (auto) 0 10 ^3/uL (0-0.2); Basophils % (auto) 0.4 % (0.0-2.0); Eosinophils # (auto) 0.3 10 ^3/uL (0-0.8); Eosinophils % (auto) 5.1 % (0.0-7.0); Hematocrit 36.2 % (41.0-53.0); Hemoglobin 11.7 g/dL (13.5-17.5); Lymphocytes # (auto) 1.1 10 ^3/uL (0.4-5.4); Lymphocytes % (auto) 17.2 % (10.0-50.0); Mean Corpuscular Hemoglobin 29.9 pg (28.0-32.0); Mean Corpuscular Hgb Conc. 32.2 g/dL (32.0-36.0); Mean Corpuscular Volume 92.6 fL (80.0-100.0); Monocytes # (auto) 0.6 10 ^3/uL (0-1.3); Monocytes % (auto) 10.4 % (0.0-12.0); Neutrophils # (auto) 4.1 10 ^3/uL (1.6-8.6); Neutrophils % (auto) 66.9 % (37.0-80.0); Platelet Count (auto) 196 10^3/uL (140-450); Red Blood Cells 3.91 10^6/uL (4.5-5.90); Red Cell Distribution Width 14.1 % (11.8-14.3); White Blood Cell 6.1 10^3/uL (4.4-10.8)
[2025-02-21 04:30] LABS: Alanine Aminotransferase 127 U/L (7-40); Albumin 3.5 g/dL (3.2-4.8); Alkaline Phosphatase 76 U/L (46-116); Anion Gap 9 (5-15); Aspartate Aminotransferase 177 U/L (13-40); BUN/Creatinine Ratio 34.5 (10.0-20.0); Blood Urea Nitrogen 29 mg/dL (9-23); Calcium 8.9 mg/dL (8.7-10.4); Carbon Dioxide 26 mmol/L (20-31); Chloride 122 mmol/L (98-107); Glucose 111 mg/dL (74-106); Potassium 4.1 mmol/L (3.5-5.1); Sodium 157 mmol/L (136-145); Total Protein 6.5 g/dL (5.7-8.2)
[2025-02-21 04:31] LABS: Bilirubin, Total 0.7 mg/dL (0.2-1.0)
[2025-02-21] MEDS: D5W 5% 1,000 ML IV SCH (06:55)
--- NOTE | 2025-02-21 07:24 | DVH ---
EXAM: XR Chest, 1 View CLINICAL INDICATION: dyspnea TECHNIQUE: Frontal view of the chest. COMPARISON: None FINDINGS: LUNGS AND PLEURAL SPACES: Bibasilar atelectasis or pneumonia. No pneumothorax. HEART: Unremarkable. No cardiomegaly. MEDIASTINUM: Unremarkable. Normal mediastinal contour. BONES/JOINTS: Unremarkable. No acute fracture. OTHER FINDINGS: . . . IMPRESSION: Bibasilar atelectasis or pneumonia.
[2025-02-21 10:40] LABS: Hepatitis B Surface Antigen Negative (Negative)
[2025-02-21 12:34] LABS: Hepatitis A Ab IgM Negative; Hepatitis B Core IgM Negative (Negative)
[2025-02-21 12:36] LABS: Hepatitis C Antibody Positive (Negative)
--- NOTE | 2025-02-21 13:28 | DVHPNRES ---
Progress Note Date Seen: Feb 21, 2025 Resident Creating Document: JUAN CRUZ RESIDENT Has the PT tested + for MRSA If YES, has PT been informed?: No Medical Necessity Reason Pt with a Central, PICC or Fol: No Subjective Review of Systems 49-year-old male with PMHx of Huntingtons disease, Hepatitis C, GERD, mood disorder, and long incarceration history (released 2 months ago after 25 years), presented from home with 3 days of progressive weakness, altered mental status, poor oral intake, cough, foul-smelling urine, and constipation. Family states he has been off and was found hypotensive with SBP in the 70s by EMS. PMHx: GERD Hepatitis C Huntingtons disease Adjustment disorder Mood disorder History of MRSA Surgical History: Mandibular fracture (prior) Cystoscopy & ureteroscopy Family History: Unknown Social History: Formerly incarcerated 25 years; now living with family. Smoker, alcohol, drug use unknown Medications: Amantadine, benztropine, mirtazapine, lorazepam, risperidone, pantoprazole, propranolol, ferrous sulfate, lactulose, tamsulosin, deuterabenazine, naloxone nasal spray 02/20/2025: Na 165, continue D5W at 150cc/h, urology consulted, CT scan ordered: showed bladder thickening, possible lung consolidations and large volume stool, bladder scan less than 200 no need of cystostomy for now but if distention suprapubic puncture will be performed, mild fevers, continue vanco/ meropenem, patient was in low dose levophed since midnight 02/21/2025: levophed off, Na 157, D5W at 75cc/h, haloperidol jj, bladder scan less than 200cc today as well, case discussed with the brother today, he stated his mental status is getting to baseline (patient has advance dementia), downgrade to telemetry Objective vital signs Vital Sign Date Time Temp Pulse Resp B/P (MAP) Pulse Ox O2 Delivery O2 Flow Rate FiO2 02/21/25 12:00 114 02/21/25 12:00 26 91 Room Air* 0 21 02/21/25 12:00 82/63 (69) 02/21/25 08:01 99.2 99.2 Total Intake and Output 02/20/25 02/20/25 02/21/25 15:00 23:00 07:00 Intake Total 1246.628 ml 1409 ml 1209 ml Balance 1246.628 ml 1409 ml 1209 ml medications Current Medications Medications Dose Ordered Sig/Jj Route Start Time Stop Time Status Last Admin Dose Admin Meropenem 50 ml @ 17 mls/hr Q8HR IV 02/19/25 22:00 02/21/25 12:39 17 MLS/HR Vancomycin HCl 0 ml @ 0 mls/hr UD IV 02/19/25 15:30 Lorazepam 1 mg Q5MINP PRN IV 02/19/25 15:30 Pantoprazole Sodium 40 mg DAILY IV 02/20/25 10:00 02/21/25 08:12 40 MG Diagnostic Test (Pha) 1 strip Q6HR 02/19/25 18:00 02/21/25 11:49 1 STRIP Dextrose 50 ml UD PRN IV 02/19/25 16:45 Enoxaparin Sodium 40 mg DAILY SC 02/20/25 10:00 02/21/25 08:13 40 MG Norepinephrine Bitartrate 250 ml @ 3.75 mls/hr Q24H IV 02/20/25 05:45 Dextrose 1,000 ml @ 75 mls/hr [id number] IV 02/21/25 07:00 02/21/25 06:55 75 MLS/HR Haloperidol Lactate 5 mg Q8HP IM 02/21/25 14:00 UNV Vancomycin HCl 300 ml @ 200 mls/hr Q12H IV 02/21/25 15:00 Examination General Appearance: moderate distress (AOX0), Other HEENT: Other (dry mouth, poor oral hygine ) Respiratory: Clear to auscultation Cardiovascular: Regular rate, Other (tachycardic) Abdominal: Soft Extremities: No edema Neuro: Other (caquectic ) laboratory and microbiology Laboratory Tests 02/21/25 03:58 Test 02/21/25 03:58 Range/Units Serum Glucose 111 H 74-106 mg/dL Microbiology Date/Time Source Procedure Growth Status 02/19/25 20:07 Nose MRSA Screen - Final Complete 02/19/25 13:26 Blood Blood Culture - Preliminary NO GROWTH AFTER 24 HOURS OF INCUBATION. Resulted Problem List/Assessment/Plan Problem List/Assessment/Plan #Acute metabolic encephalopathy likely multifactorial (sepsis, Huntingtons, chronic illness, electrolyte derangement) #Severe Hypernatremia (Na 175), likely chronic NPO Telemetry status Slow correction with D5W 75cc/h Monitor Na q4h, avoid rapid shifts #Odanah disease Oral meds will be restarted after stabilization home meds: amantadine, benztropine, mirtazapine, deuterabenazine Continue supportive care DNR/DNI: chemical code CT head: ischemic chronic changes, global atrophy Haloperidol JJ #Sepsis Likely secondary to UTI and Aspiration pneumonia #Complicated UTI #Possible pneumonia gram +/ gram- . CXR reviewed Blood and urine cultures, UA pending Started on IV fluids, vancomycin, meropenem CT scan ordered: showed bladder thickening, possible lung consolidations and large volume stool #Constipation lactulose will be restarted after stabilization #GERD Protonix IV #Ho/Hepatitis C monitor #Urethral stricture disease #Possible false urethral passage #Urinary incontinence Bladder scan: 197 cc If bladder is distended, please request Interventional Radiology to place a temporary suprapubic catheter. When patient was metabolically stable, we will consider performing a diagnostic cystoscopy and possible DVIU 02/20/2025: Na 165, continue D5W at 150cc/h, urology consulted, CT scan ordered: showed bladder thickening, possible lung consolidations and large volume stool, bladder scan less than 200 no need of cystostomy for now but if distention suprapubic puncture will be performed, mild fevers, continue vanco/ meropenem, patient was in low dose levophed since midnight 02/21/2025: levophed off, Na 157, D5W at 75cc/h, haloperidol jj, bladder scan less than 200cc today as well, case discussed with the brother today, he stated his mental status is getting to baseline (patient has advance dementia), downgrade to telemetry Disposition: ICU due to severe hypernatremia Code status: chemical code: no compressions, no defibrillation, no intubation, discussed with the brother for 22 min Case discussed with Dr Alfred Ambrocio discussed with: Patient, Other (rn) My Orders My Orders Orders - JUAN CRUZ Procedure Category Date Status Time Sodium LAB 02/21/25 Logged 14:00 Sodium LAB 02/21/25 Logged 18:00 Sodium LAB 02/21/25 Logged 22:00 Sodium LAB 02/22/25 Verified 02:00 Sodium LAB 02/22/25 Verified 06:00 Sodium LAB 02/22/25 Verified 10:00 Sodium LAB 02/22/25 Verified 14:00 Sodium LAB 02/22/25 Verified 18:00 Sodium LAB 02/22/25 Verified 22:00 D5w 5% (Dextrose 5%) PHA 02/21/25 In Process 07:00 Chest Xray 1 View XY 02/21/25 Resulted 06:52 Haloperidol Lactate PHA 02/21/25 Logged Injection (Haldol) 14:00 Transfer Orders XFER 02/21/25 Transmitted 12:30 Vancomycin 1.5gm/300ml PHA 02/21/25 In Process 15:00 Vancomycin,Trough LAB 02/23/25 Verified 04:00 Vancomycin Per ELIER 02/23/25 In Process Pharmacy Protoc 04:00 Complete Blood Count LAB 02/22/25 Verified 04:00 Creatinine LAB 02/22/25 Verified 04:00 Date of Service: Feb 20, 2025 Billing Provider: VY LEE MD Common Visit Codes: [id number] CARE 30-74 MIN (critical care time 45 minutes) JUAN CRUZ RESIDENT Feb 21, 2025 13:28 VY LEE MD Feb 21, 2025 20:13
[2025-02-21] MEDS: HALOPERIDOL LACTATE 5 MG/ML INJ VIAL IM SCH (13:53)
[2025-02-21] MEDS ORDERED: HALOPERIDOL LACTATE 5 MG/ML INJ VIAL IM SCH (14:00)
[2025-02-21] MEDS: VANCOMYCIN 1.5GM/300ML 300 ML IV SCH (14:05)
[2025-02-22] VITALS (9 sets, daily range): BP systolic 100–189; BP diastolic 40–117; PULSE 68–108; RESP 18–21; TEMP 97.6–99.4; O2SAT 90–96
[2025-02-22 06:14] LABS: Basophils # (auto) 0 10 ^3/uL (0-0.2); Basophils % (auto) 0.5 % (0.0-2.0); Eosinophils # (auto) 0.2 10 ^3/uL (0-0.8); Eosinophils % (auto) 3.6 % (0.0-7.0); Hematocrit 34.7 % (41.0-53.0); Hemoglobin 11.4 g/dL (13.5-17.5); Lymphocytes # (auto) 0.8 10 ^3/uL (0.4-5.4); Lymphocytes % (auto) 12.3 % (10.0-50.0); Mean Corpuscular Hgb Conc. 32.9 g/dL (32.0-36.0); Mean Corpuscular Volume 91.2 fL (80.0-100.0); Monocytes # (auto) 0.4 10 ^3/uL (0-1.3); Monocytes % (auto) 5.8 % (0.0-12.0); Neutrophils # (auto) 5.3 10 ^3/uL (1.6-8.6); Neutrophils % (auto) 77.8 % (37.0-80.0); Platelet Count (auto) 202 10^3/uL (140-450); Red Cell Distribution Width 13.5 % (11.8-14.3); White Blood Cell 6.8 10^3/uL (4.4-10.8)
[2025-02-22 06:35] LABS: Alkaline Phosphatase 93 U/L (46-116); Anion Gap 9 (5-15); BUN/Creatinine Ratio 45.9 (10.0-20.0); Calcium 9.1 mg/dL (8.7-10.4); Carbon Dioxide 26 mmol/L (20-31); Glucose 82 mg/dL (74-106); Potassium 4.1 mmol/L (3.5-5.1)
[2025-02-22 06:36] LABS: Alanine Aminotransferase 123 U/L (7-40); Albumin 3.3 g/dL (3.2-4.8); Aspartate Aminotransferase 97 U/L (13-40); Bilirubin, Total 0.7 mg/dL (0.2-1.0); Blood Urea Nitrogen 34 mg/dL (9-23); Chloride 121 mmol/L (98-107); Sodium 156 mmol/L (136-145)
[2025-02-22] MEDS: LORazepam 2MG/ML-1ML VIAL IV PRN (09:28)
--- NOTE | 2025-02-22 14:51 | DVHPNRES ---
Progress Note Date Seen: Feb 22, 2025 Resident Creating Document: RAIMUNDO HALEY NESTOR Has the PT tested + for MRSA If YES, has PT been informed?: No Medical Necessity Reason Pt with a Central, PICC or Fol: No Subjective Review of Systems Patient seen and examined at bedside. Patient is nonverbal, could not provide proper history. Patient reports: No new complaints Changes from previous H/P or p: No Changes Objective vital signs Vital Sign Date Time Temp Pulse Resp B/P (MAP) Pulse Ox O2 Delivery O2 Flow Rate FiO2 02/22/25 13:00 97.7 108 19 106/40 (62) 94 97.7 02/22/25 08:00 Nasal Cannula* 2 28 Total Intake and Output 02/21/25 02/21/25 02/22/25 14:59 22:59 06:59 Intake Total 183 ml 1000 ml 421.91 ml Balance 183 ml 1000 ml 421.91 ml medications Current Medications Medications Dose Ordered Sig/Jj Route Start Time Stop Time Status Last Admin Dose Admin Meropenem 50 ml @ 17 mls/hr Q8HR IV 02/19/25 22:00 02/22/25 14:21 17 MLS/HR Vancomycin HCl 0 ml @ 0 mls/hr UD IV 02/19/25 15:30 Lorazepam 1 mg Q5MINP PRN IV 02/19/25 15:30 02/22/25 09:28 1 MG Pantoprazole Sodium 40 mg DAILY IV 02/20/25 10:00 02/22/25 11:18 40 MG Diagnostic Test (Pha) 1 strip Q6HR 02/19/25 18:00 02/22/25 13:05 1 STRIP Dextrose 50 ml UD PRN IV 02/19/25 16:45 Enoxaparin Sodium 40 mg DAILY SC 02/20/25 10:00 02/22/25 11:18 40 MG Norepinephrine Bitartrate 250 ml @ 3.75 mls/hr Q24H IV 02/20/25 05:45 Dextrose 1,000 ml @ 75 mls/hr [id number] IV 02/21/25 07:00 02/22/25 13:05 75 MLS/HR Vancomycin HCl 300 ml @ 200 mls/hr Q12H IV 02/21/25 15:00 02/22/25 03:22 200 MLS/HR Haloperidol Lactate 5 mg Q8HR IM 02/21/25 14:00 02/22/25 14:22 5 MG Examination General Appearance: moderate distress (AOX0), Other HEENT: Other (dry mouth, poor oral hygine ) Respiratory: Clear to auscultation Cardiovascular: Regular rate, Other (tachycardic) Abdominal: Soft Extremities: No edema Neuro: Other (caquectic ) laboratory and microbiology Laboratory Tests 02/22/25 12:10 02/22/25 01:58 Test 02/22/25 01:58 Range/Units Serum Glucose 82 74-106 mg/dL Microbiology Date/Time Source Procedure Growth Status 02/19/25 20:07 Nose MRSA Screen - Final Complete 02/19/25 13:26 Blood Blood Culture - Preliminary NO GROWTH AFTER 72 HOURS OF INCUBATION. Resulted Labs and/or images reviewed: Labs reviewed by me, Image(s) reviewed by me Problem List/Assessment/Plan Problem List/Assessment/Plan #Acute metabolic encephalopathy likely multifactorial (sepsis, Huntingtons, chronic illness, electrolyte derangement) #Severe Hypernatremia (Na 175), likely chronic NPO Telemetry status Slow correction with D5W 75cc/h Monitor Na q4h, avoid rapid shifts #Devon disease Oral meds will be restarted after stabilization home meds: amantadine, benztropine, mirtazapine, deuterabenazine Continue supportive care DNR/DNI: chemical code CT head: ischemic chronic changes, global atrophy Haloperidol JJ #Sepsis Likely secondary to UTI and Aspiration pneumonia #Complicated UTI #Possible pneumonia gram +/ gram- . CXR reviewed Blood and urine cultures, UA pending Started on IV fluids, vancomycin, meropenem CT scan ordered: showed bladder thickening, possible lung consolidations and large volume stool #Constipation lactulose will be restarted after stabilization #GERD Protonix IV #Ho/Hepatitis C monitor #Urethral stricture disease #Possible false urethral passage #Urinary incontinence Bladder scan: 197 cc If bladder is distended, please request Interventional Radiology to place a temporary suprapubic catheter. When patient was metabolically stable, we will consider performing a diagnostic cystoscopy and possible DVIU Continue IV fluid D5W 75 mL/hour. Patient's status discussed with the patient's sister and [id number] at the bedside, patient's unkle is taking care of him at home, family requested assistance for taking care of patient, geriatric social work professor consulted. Code status: chemical code: no compressions, no defibrillation, no intubation, discussed with the brother for 22 min Case discussed with Dr Galdamez Plan discussed with: Patient, Other (RN) My Orders My Orders Orders - RAIMUNDO HALEY Procedure Category Date Status Time * Sap Bw Developer CONS 02/22/25 Transmitted Consult * Picc Line Consult CONS 02/22/25 Transmitted 12:30 PTPTT LAB 02/22/25 Logged 14:24 Prothrombin Time W/ LAB 02/22/25 Logged INR 14:24 * Neurology Consult CONS 02/22/25 Transmitted 14:39 Dietary Evaluation Review Comments: 1. TPN if NPO>5 days 2. Damon 1 pk BID 3. Advance diet as medically feasible Expected Outcomes/Goals: To meet >75% estimated needs Fu 2-3 days Date of Service: Feb 22, 2025 Billing Provider: BRENTON GALDAMEZ MD Common Visit Codes: [id number] INP/OBS CARE(HIGH) RAIMUNDO HALEY Feb 22, 2025 14:51 BRENTON GALDAMEZ MD Feb 24, 2025 21:41
[2025-02-22 16:21] LABS: INR 1.19 (0.9-1.15); Partial Thromboplastin Time 30.5 SEC (24.5-34.5); Prothrombin Time 12.4 sec (9.3-11.8)
[2025-02-22] MEDS ORDERED: AMAN100C22 PO (16:49)
[2025-02-22] MEDS ORDERED: BENZ2TAB50 PO (16:55)
[2025-02-22] MEDS ORDERED: BENZ1TAB6 PO ×2 (16:55→16:57)
[2025-02-22] MEDS ORDERED: PANT40TA2 PO (16:58)
[2025-02-22] MEDS ORDERED: RISP3TAB44 PO (17:00)
[2025-02-22] MEDS ORDERED: PROP1TAB51 PO (17:02)
[2025-02-23] VITALS (8 sets, daily range): BP systolic 97–114; BP diastolic 51–75; PULSE 69–96; RESP 17–18; TEMP 97.4–98.7; O2SAT 93–100
[2025-02-23 02:11] LABS: Basophils # (auto) 0 10 ^3/uL (0-0.2); Basophils % (auto) 0.7 % (0.0-2.0); Eosinophils # (auto) 0.2 10 ^3/uL (0-0.8); Eosinophils % (auto) 2.8 % (0.0-7.0); Hematocrit 34.5 % (41.0-53.0); Hemoglobin 11.6 g/dL (13.5-17.5); Lymphocytes # (auto) 0.8 10 ^3/uL (0.4-5.4); Lymphocytes % (auto) 13.2 % (10.0-50.0); Mean Corpuscular Hemoglobin 30.3 pg (28.0-32.0); Mean Corpuscular Hgb Conc. 33.5 g/dL (32.0-36.0); Mean Corpuscular Volume 90.4 fL (80.0-100.0); Monocytes # (auto) 0.3 10 ^3/uL (0-1.3); Monocytes % (auto) 5.3 % (0.0-12.0); Neutrophils # (auto) 4.8 10 ^3/uL (1.6-8.6); Platelet Count (auto) 229 10^3/uL (140-450); Red Blood Cells 3.82 10^6/uL (4.5-5.90); Red Cell Distribution Width 13.3 % (11.8-14.3); White Blood Cell 6.1 10^3/uL (4.4-10.8)
[2025-02-23 02:28] LABS: Albumin 3.5 g/dL (3.2-4.8); Alkaline Phosphatase 93 U/L (46-116); Anion Gap 9 (5-15); Bilirubin, Total 0.5 mg/dL (0.2-1.0); Calcium 8.7 mg/dL (8.7-10.4); Carbon Dioxide 23 mmol/L (20-31); Glucose 95 mg/dL (74-106); Potassium 3.6 mmol/L (3.5-5.1); Total Protein 6.7 g/dL (5.7-8.2)
[2025-02-23 02:37] LABS: Aspartate Aminotransferase 70 U/L (13-40); Blood Urea Nitrogen 31 mg/dL (9-23); Chloride 120 mmol/L (98-107); Sodium 152 mmol/L (136-145)
[2025-02-23 02:38] LABS: Alanine Aminotransferase 83 U/L (7-40)
--- NOTE | 2025-02-23 11:51 | DVHPNRES ---
Progress Note Date Seen: Feb 23, 2025 Resident Creating Document: JUAN CRUZ RESIDENT Has the PT tested + for MRSA If YES, has PT been informed?: No Medical Necessity Reason Pt with a Central, PICC or Fol: No Subjective Review of Systems 49-year-old male with PMHx of Huntingtons disease, Hepatitis C, GERD, mood disorder, and long incarceration history (released 2 months ago after 25 years), presented from home with 3 days of progressive weakness, altered mental status, poor oral intake, cough, foul-smelling urine, and constipation. Family states he has been off and was found hypotensive with SBP in the 70s by EMS. PMHx: GERD Hepatitis C Huntingtons disease Adjustment disorder Mood disorder History of MRSA Surgical History: Mandibular fracture (prior) Cystoscopy & ureteroscopy Family History: Unknown Social History: Formerly incarcerated 25 years; now living with family. Smoker, alcohol, drug use unknown Medications: Amantadine, benztropine, mirtazapine, lorazepam, risperidone, pantoprazole, propranolol, ferrous sulfate, lactulose, tamsulosin, deuterabenazine, naloxone nasal spray 02/20/2025: Na 165, continue D5W at 150cc/h, urology consulted, CT scan ordered: showed bladder thickening, possible lung consolidations and large volume stool, bladder scan less than 200 no need of cystostomy for now but if distention suprapubic puncture will be performed, mild fevers, continue vanco/ meropenem, patient was in low dose levophed since midnight 02/21/2025: levophed off, Na 157, D5W at 75cc/h, haloperidol jj, bladder scan less than 200cc today as well, case discussed with the brother today, he stated his mental status is getting to baseline (patient has advance dementia), downgrade to telemetry 02/23/2025: Patient's status discussed with the patient's brother POA, the option of PEG tube was discussed, he agrees, GI consult is placed Objective vital signs Vital Sign Date Time Temp Pulse Resp B/P (MAP) Pulse Ox O2 Delivery O2 Flow Rate FiO2 02/23/25 08:57 97.4 69 18 98/57 (71) 100 97.4 02/23/25 08:00 Nasal Cannula* 2 28 Total Intake and Output 6/04/1102/22/25 02/23/25 15:00 23:00 07:00 Intake Total 50 ml 975 ml 925.5 ml Output Total 1200 ml 700 ml Balance 50 ml -225 ml 225.5 ml medications Current Medications Medications Dose Ordered Sig/Jj Route Start Time Stop Time Status Last Admin Dose Admin Vancomycin HCl 0 ml @ 0 mls/hr UD IV 02/19/25 15:30 Lorazepam 1 mg Q5MINP PRN IV 02/19/25 15:30 02/22/25 17:32 1 MG Pantoprazole Sodium 40 mg DAILY IV 02/20/25 10:00 02/23/25 10:03 40 MG Diagnostic Test (Pha) 1 strip Q6HR 02/19/25 18:00 02/23/25 05:57 1 STRIP Dextrose 50 ml UD PRN IV 02/19/25 16:45 Enoxaparin Sodium 40 mg DAILY SC 02/20/25 10:00 02/23/25 10:04 40 MG Dextrose 1,000 ml @ 75 mls/hr [id number] IV 02/21/25 07:00 02/23/25 05:59 75 MLS/HR Haloperidol Lactate 5 mg Q8HR IM 02/21/25 14:00 02/23/25 05:58 5 MG Examination General Appearance: moderate distress (AOX0), Other HEENT: Other (dry mouth, poor oral hygine ) Respiratory: Clear to auscultation Cardiovascular: Regular rate, Other (tachycardic) Abdominal: Soft Extremities: No edema Neuro: Other (caquectic ) laboratory and microbiology Laboratory Tests 02/23/25 01:53 Test 02/23/25 01:53 Range/Units Serum Glucose 95 74-106 mg/dL Microbiology Date/Time Source Procedure Growth Status 02/19/25 20:07 Nose MRSA Screen - Final Complete 02/19/25 13:26 Blood Blood Culture - Preliminary NO GROWTH AFTER 72 HOURS OF INCUBATION. Resulted Problem List/Assessment/Plan Problem List/Assessment/Plan #Acute metabolic encephalopathy likely multifactorial (sepsis, Huntingtons, chronic illness, electrolyte derangement) #Severe Hypernatremia (Na 175), likely chronic NPO Telemetry status Slow correction with D5W 75cc/h Monitor Na q4h, avoid rapid shifts #Devon disease Oral meds will be restarted after stabilization and PEG tube placement home meds: amantadine, benztropine, mirtazapine, deuterabenazine Continue supportive care DNR/DNI: chemical code CT head: ischemic chronic changes, global atrophy Haloperidol JJ GI consult for possible PEG tube #Sepsis Likely secondary to UTI and Aspiration pneumonia #Complicated UTI #Possible pneumonia gram +/ gram- . CXR reviewed Blood and urine cultures, UA pending Started on IV fluids, vancomycin, meropenem CT scan ordered: showed bladder thickening, possible lung consolidations and large volume stool #Constipation lactulose will be restarted after stabilization #GERD Protonix IV #Ho/Hepatitis C monitor #Urethral stricture disease #Possible false urethral passage #Urinary incontinence Bladder scan: 197 cc If bladder is distended, please request Interventional Radiology to place a temporary suprapubic catheter. When patient was metabolically stable, we will consider performing a diagnostic cystoscopy and possible DVIU Continue IV fluid D5W 75 mL/hour. Patient's status discussed with the patient's brother RK, the option of PEG tube was discussed, he agrees, GI consult is placed Code status: chemical code: no compressions, no defibrillation, no intubation, discussed with the brother for 22 min Case discussed with Dr Galdamez Plan discussed with: Patient, Other (rn) My Orders My Orders Orders - JUAN CRUZ RESIDENT Procedure Category Date Status Time Complete Blood Count LAB 02/24/25 Verified 04:00 Creatinine LAB 02/24/25 Verified 04:00 Vancomycin,Random LAB 02/24/25 Verified 04:00 * Gi Dvh Librarian CONS 02/23/25 Transmitted 11:42 Dietary Evaluation Review Comments: 1. TPN if NPO>5 days 2. Damon 1 pk BID 3. Advance diet as medically feasible Expected Outcomes/Goals: To meet >75% estimated needs Fu 2-3 days Date of Service: Feb 23, 2025 Billing Provider: BRENTON GALDAMEZ MD Common Visit Codes: [id number] INP/OBS CARE(HIGH) JUAN CRUZ RESIDENT Feb 23, 2025 11:51 BRENTON GALDAMEZ MD Feb 24, 2025 21:42
--- NOTE | 2025-02-23 18:28 | DVHINCON2 ---
Date of service: Feb 23, [address] 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 admitted with complaints of progressive weakness altered mental status poor oral intake and constipation Patient has history of GERD hepatitis-C and mood problems Past Medical History GERD hepatitis-C Devon's disease Past Surgical History Mandibular fracture cystoscopy Family History Noncontributory Social History None Allergies: Coded Allergies: NO KNOWN ALLERGIES (Unverified , 02/22/25) Home Meds Reported Medications Propranolol HCl (Propranolol Hydrochloride) 10 Mg Tab, 10 MG PO BID, TAB 02/22/25 Risperidone (Risperidone) 3 Mg Tab, 1 TAB PO BID, #60 TAB 2 Refills 02/22/25 Pantoprazole Sodium Sesquihydr (Protonix) 40 Mg Tab, 40 MG PO DAILY, #30 TAB 02/22/25 Benztropine Mesylate (Benztropine Mesylate) 1 Mg Tab, 1 MG PO QAM, MG 02/22/25 Amantadine Hcl (Amantadine Hcl) 100 Mg Cap, 200 MG PO Q12HR for 30 Days, MG 02/22/25 Discontinued Reported Medications Risperidone (Risperidone) 3 Mg Tab, 3 TAB PO BID, #60 TAB 2 Refills 02/22/25 Benztropine Mesylate (Benztropine Mesylate) 2 Mg Tab, 1 TAB PO QPM, #30 TAB 2 Refills 02/22/25 Benztropine Mesylate (Benztropine Mesylate) 1 Mg Tab, 1 TAB PO BID, #60 TAB 02/22/25 Review of Systems Unable to get detailed evaluation Vital Signs Vital Signs Date Time Temp Pulse Resp B/P (MAP) Pulse Ox O2 Delivery O2 Flow Rate FiO2 02/23/25 16:47 97.5 96 18 97/75 (82) 93 97.5 02/23/25 08:00 Nasal Cannula* 2 28 Physical Exam Patient is having tremors , Choreiform movements as well as in moderate distress a normal unable to communicate HEENT examination no pallor Lungs clear Cardiovascular unremarkable Abdomen is soft no distention no rigidity no masses Labs/Diagnostic Data Labs Test 02/23/25 16:48 02/23/25 01:53 02/22/25 15:54 02/20/25 05:53 Range/Units POC Glucose 99 70-106 mg/dl White Blood Count 6.1 4.4-10.8 10^3/uL Red Blood Count 3.82 L 4.5-5.90 10^6/uL Hemoglobin 11.6 L 13.5-17.5 g/dL Hematocrit 34.5 L 41.0-53.0 % Mean Corpuscular Volume 90.4 80.0-100.0 fL Mean Corpuscular Hemoglobin 30.3 28.0-32.0 pg Mean Corpuscular Hemoglobin Concent 33.5 32.0-36.0 g/dL Red Cell Distribution Width 13.3 11.8-14.3 % Platelet Count 229 140-450 10^3/uL Mean Platelet Volume 10.5 6.9-10.8 fL Neutrophils (%) (Auto) 78.0 37.0-80.0 % Lymphocytes (%) (Auto) 13.2 10.0-50.0 % Monocytes (%) (Auto) 5.3 0.0-12.0 % Eosinophils (%) (Auto) 2.8 0.0-7.0 % Basophils (%) (Auto) 0.7 0.0-2.0 % Neutrophils # (Auto) 4.8 1.6-8.6 10 ^3/uL Lymphocytes # (Auto) 0.8 0.4-5.4 10 ^3/uL Monocytes # (Auto) 0.3 0-1.3 10 ^3/uL Eosinophils # (Auto) 0.2 0-0.8 10 ^3/uL Basophils # (Auto) 0 0-0.2 10 ^3/uL Nucleated Red Blood Cells 0.0 % Sodium Level 152 H 136-145 mmol/L Potassium Level 3.6 3.5-5.1 mmol/L Chloride Level 120 H 98-107 mmol/L Carbon Dioxide Level 23 20-31 mmol/L Anion Gap 9 5-15 Blood Urea Nitrogen 31 H 9-23 mg/dL Creatinine 0.66 L 0.700-1.30 mg/dL Glomerular Filtration Rate Calc 114 >90 mL/min BUN/Creatinine Ratio 47.0 H 10.0-20.0 Serum Glucose 95 74-106 mg/dL Calcium Level 8.7 8.7-10.4 mg/dL Total Bilirubin 0.5 0.2-1.0 mg/dL Aspartate Amino Transferase (AST) 70 H 13-40 U/L Alanine Aminotransferase (ALT) 83 H 7-40 U/L Alkaline Phosphatase 93 46-116 U/L Total Protein 6.7 5.7-8.2 g/dL Albumin 3.5 3.2-4.8 g/dL Vancomycin Level Trough 28.7 H 5-10 ug/mL Prothrombin Time 12.4 H 9.3-11.8 sec Prothrombin Time INR 1.19 H 0.9-1.15 Activated Partial Thromboplast Time 30.5 24.5-34.5 SEC Hemoglobin A1c 5.0 <5.7 % A1C Phosphorus Level 3.6 2.4-5.1 mg/dL Magnesium Level 3.2 H 1.6-2.6 mg/dL Test 02/19/25 22:06 02/19/25 20:07 02/19/25 18:13 02/19/25 14:25 Range/Units Hepatitis A IgM Antibody Negative Hepatitis B Surface Antigen Negative Negative Hepatitis B Core IgM Antibody Negative Negative Hepatitis C Antibody Positive *A Negative Influenza Type A Antigen Negative Negative Influenza Type B Antigen Negative Negative SARS-CoV-2 Antigen (Rapid) Negative NEGATIVE Free Thyroxine (T4) Calculated 1.30 0.89-1.76 ng/dL Free Triiodothyronine (T3) pg/mL 2.69 2.3-4.2 pg/mL Blood Gas Specimen Type Arterial Blood Gas Sample Site Right radial Blood Gas Patient Temperature 37.0 Arterial Blood Date Drawn [id number] Arterial Blood pH 7.459 H 7.350-7.450 Arterial Blood Partial Pressure CO2 33.2 L 35.0-48.0 mmHg Arterial Blood Partial Pressure O2 98.4 83.0-108.0 mmHg Arterial Blood HCO3 23.0 21.0-28.0 mmol/L Arterial Blood Oxygen Saturation 97.1 94.0-98.0 % Arterial Blood Base Excess -0.1 -2.0-3.0 mmol/L Arterial Blood Oxyhemoglobin 96.1 94.0-98.0 % Arterial Blood Carboxyhemoglobin 0.6 0.5-1.5 % Arterial Blood Methemoglobin 0.4 0.0-1.5 % Ash Test Yes Blood Gas Total Hemoglobin 13.50 13.5-17.5 g/dL Blood Gas Liter Flow 10.00 Blood Gas Modality Mask - simple FiO2 % 60.0 Test 02/19/25 13:26 Range/Units Serum Osmolality 382 H 278-298 mOsm/kg Lactic Acid Level 1.5 0.4-2.0 mmol/L Direct Bilirubin 0.2 <0.3 mg/dL Ammonia 12 11-32 umol/L Beta-Hydroxybutyric Acid 0.384 < 0.4 mmol/L Thyroid Stimulating Hormone (TSH) 0.03 L 0.55-4.78 uIU/mL Plasma/Serum Blood Alcohol < 3.0 <10 mg/dL Microbiology Date/Time Source Procedure Growth Status 02/19/25 20:07 Nose MRSA Screen - Final Complete 02/19/25 13:26 Blood Blood Culture - Preliminary NO GROWTH AFTER 72 HOURS OF INCUBATION. 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 Chua Plan discussed with: Other DEBRA CHUA MD Feb 23, 2025 18:28
--- NOTE | 2025-02-23 19:52 | DVHINCON2 ---
Date of service: Feb 23, [address] Gaytan Reason for Consultation Chesapeake disease History of Present Illness Mr. Marie is a 49 years old gentleman with a history of hepatitis-C, GERD, the patient was brought to the [facility] on 02/19/2025 for general weakness, possible aspiration (per his uncle), he also has Parkinson's disease. At that time, the patient's in the bed, nonverbal, the history is obtained from Quirino his uncle Quirino reported that he does not know in details about the patient's Chesapeake's disease because he was released from the residential in 12/2024 after 25 year be [employer]. But he knows the patient was diagnosed Chesapeake disease about five years ago, he is not aware how the patient was treated/diagnosis in the jaw, according to the information (dated in 06/2024) he brought to the hospital, the patient was on Cogentin 1 mg b.i.d., propranolol 10 mg b.i.d., risperidone 3 mg b.i.d., Flomax 0.4 mg daily, lorazepam 0.5 mg Q HS p.r.n. for agitation. The information from the residential confirmed diagnosis of Chesapeake's disease, it also mentioned the patient was bed-bound In the hospital, the patient was given Haldol 5 mg IM Q 8 hours, which helps briefly after dosing His uncle relates the patient's walking was improving after he was released home, he also claimed the patient has normal mentation/memory Plasma alcohol, 02/19/2025: Normal WBC/HB/PLT/MCV, 02/23/2025: 6.1/11.6/229/90.4 Na, 02/19/2025: 173, 175, 02/21/2020 5:167, 166, 02/21/2025: 157, 02/23/2020 5:156, 02/23/25:152 BUN/CR, 02/19/2025: 53/1.06, 02/20/2025: 40/1.01, 02/23/2025: 30/0.66 HGB A1c, 02/20/25: 5 Liver function tests, 02/19/2025: Unremarkable Chest x-ray, 02/21/2025: Bibasilar atelectasis or pneumonia. CT head, 02/19/2025: 1. No intracranial hemorrhage or mass effect. 2. [id number]-[id number] chronic microvascular ischemic changes. 3. Moderate global cerebral volume loss Past Medical History Hepatitis-C, GERD, Chesapeake's disease Past Surgical History None Family History Devon's disease affecting family members in different generations Social History He does not smoke, he has no history of drug or alcohol abuse Allergies: Coded Allergies: NO KNOWN ALLERGIES (Unverified , 02/22/25) Home Meds Reported Medications Propranolol HCl (Propranolol Hydrochloride) 10 Mg Tab, 10 MG PO BID, TAB 02/22/25 Risperidone (Risperidone) 3 Mg Tab, 1 TAB PO BID, #60 TAB 2 Refills 02/22/25 Pantoprazole Sodium Sesquihydr (Protonix) 40 Mg Tab, 40 MG PO DAILY, #30 TAB 02/22/25 Benztropine Mesylate (Benztropine Mesylate) 1 Mg Tab, 1 MG PO QAM, MG 02/22/25 Amantadine Hcl (Amantadine Hcl) 100 Mg Cap, 200 MG PO Q12HR for 30 Days, MG 02/22/25 Discontinued Reported Medications Risperidone (Risperidone) 3 Mg Tab, 3 TAB PO BID, #60 TAB 2 Refills 02/22/25 Benztropine Mesylate (Benztropine Mesylate) 2 Mg Tab, 1 TAB PO QPM, #30 TAB 2 Refills 02/22/25 Benztropine Mesylate (Benztropine Mesylate) 1 Mg Tab, 1 TAB PO BID, #60 TAB 02/22/25 Review of Systems As above, the other systems are negative Vital Signs Vital Signs Date Time Temp Pulse Resp B/P (MAP) Pulse Ox O2 Delivery O2 Flow Rate FiO2 02/23/25 16:47 97.5 96 18 97/75 (82) 93 97.5 02/23/25 08:00 Nasal Cannula* 2 28 Physical Exam GENERAL EXAM: General: the patient is well developed and nourished. No acute distress. HEENT: Normocephalic, neck is supple, no carotid bruits. No mass. RESPIRATORY: Normal respiratory effort with symmetrical lung expansion. Lungs clear to auscultation. CARDIOVASCULAR: Regular rate and rhythm with no murmurs. S1, S2. ABDOMEN: Soft, nontender, normal bowel sound NEUROLOGICAL: MENTAL STATUS: Awake, he is nonresponsive to verbal stimuli SPEECH, LANGUAGE, HIGHER CORTICAL FUNCTION: He does not vocalize CRANIAL NERVES: #2: Intact visual sorensen to confrontation. #3,4,6: Pupils are equal, round and reactive. EOMs full and conjugate. #5: Facial sensation intact in all three divisions bilaterally. Mandibular strength intact. #7: Facial muscles symmetrical and strength intact. #8: Deferred #9,10: Deferred #11: Deferred #12: Deferred SENSATION: Maybe Okay to light touch painful stimuli MOTOR: Normal tone in the upper and lower extremity. Normal muscle bulk. No fasciculations. No abnormal movements or posturing. Continuous movement in the arms, torso, to less degree in the lower extremities. REFLEXES: Deep tendon reflexes are symmetrical. No pathological reflexes. CEREBELLAR/COORDINATION: Deferred GAIT/STATION: deferred. Labs/Diagnostic Data Labs Test 02/23/25 16:48 02/23/25 01:53 02/22/25 15:54 02/20/25 05:53 Range/Units POC Glucose 99 70-106 mg/dl White Blood Count 6.1 4.4-10.8 10^3/uL Red Blood Count 3.82 L 4.5-5.90 10^6/uL Hemoglobin 11.6 L 13.5-17.5 g/dL Hematocrit 34.5 L 41.0-53.0 % Mean Corpuscular Volume 90.4 80.0-100.0 fL Mean Corpuscular Hemoglobin 30.3 28.0-32.0 pg Mean Corpuscular Hemoglobin Concent 33.5 32.0-36.0 g/dL Red Cell Distribution Width 13.3 11.8-14.3 % Platelet Count 229 140-450 10^3/uL Mean Platelet Volume 10.5 6.9-10.8 fL Neutrophils (%) (Auto) 78.0 37.0-80.0 % Lymphocytes (%) (Auto) 13.2 10.0-50.0 % Monocytes (%) (Auto) 5.3 0.0-12.0 % Eosinophils (%) (Auto) 2.8 0.0-7.0 % Basophils (%) (Auto) 0.7 0.0-2.0 % Neutrophils # (Auto) 4.8 1.6-8.6 10 ^3/uL Lymphocytes # (Auto) 0.8 0.4-5.4 10 ^3/uL Monocytes # (Auto) 0.3 0-1.3 10 ^3/uL Eosinophils # (Auto) 0.2 0-0.8 10 ^3/uL Basophils # (Auto) 0 0-0.2 10 ^3/uL Nucleated Red Blood Cells 0.0 % Sodium Level 152 H 136-145 mmol/L Potassium Level 3.6 3.5-5.1 mmol/L Chloride Level 120 H 98-107 mmol/L Carbon Dioxide Level 23 20-31 mmol/L Anion Gap 9 5-15 Blood Urea Nitrogen 31 H 9-23 mg/dL Creatinine 0.66 L 0.700-1.30 mg/dL Glomerular Filtration Rate Calc 114 >90 mL/min BUN/Creatinine Ratio 47.0 H 10.0-20.0 Serum Glucose 95 74-106 mg/dL Calcium Level 8.7 8.7-10.4 mg/dL Total Bilirubin 0.5 0.2-1.0 mg/dL Aspartate Amino Transferase (AST) 70 H 13-40 U/L Alanine Aminotransferase (ALT) 83 H 7-40 U/L Alkaline Phosphatase 93 46-116 U/L Total Protein 6.7 5.7-8.2 g/dL Albumin 3.5 3.2-4.8 g/dL Vancomycin Level Trough 28.7 H 5-10 ug/mL Prothrombin Time 12.4 H 9.3-11.8 sec Prothrombin Time INR 1.19 H 0.9-1.15 Activated Partial Thromboplast Time 30.5 24.5-34.5 SEC Hemoglobin A1c 5.0 <5.7 % A1C Phosphorus Level 3.6 2.4-5.1 mg/dL Magnesium Level 3.2 H 1.6-2.6 mg/dL Test 02/19/25 22:06 02/19/25 20:07 02/19/25 18:13 02/19/25 14:25 Range/Units Hepatitis A IgM Antibody Negative Hepatitis B Surface Antigen Negative Negative Hepatitis B Core IgM Antibody Negative Negative Hepatitis C Antibody Positive *A Negative Influenza Type A Antigen Negative Negative Influenza Type B Antigen Negative Negative SARS-CoV-2 Antigen (Rapid) Negative NEGATIVE Free Thyroxine (T4) Calculated 1.30 0.89-1.76 ng/dL Free Triiodothyronine (T3) pg/mL 2.69 2.3-4.2 pg/mL Blood Gas Specimen Type Arterial Blood Gas Sample Site Right radial Blood Gas Patient Temperature 37.0 Arterial Blood Date Drawn [id number] Arterial Blood pH 7.459 H 7.350-7.450 Arterial Blood Partial Pressure CO2 33.2 L 35.0-48.0 mmHg Arterial Blood Partial Pressure O2 98.4 83.0-108.0 mmHg Arterial Blood HCO3 23.0 21.0-28.0 mmol/L Arterial Blood Oxygen Saturation 97.1 94.0-98.0 % Arterial Blood Base Excess -0.1 -2.0-3.0 mmol/L Arterial Blood Oxyhemoglobin 96.1 94.0-98.0 % Arterial Blood Carboxyhemoglobin 0.6 0.5-1.5 % Arterial Blood Methemoglobin 0.4 0.0-1.5 % Ash Test Yes Blood Gas Total Hemoglobin 13.50 13.5-17.5 g/dL Blood Gas Liter Flow 10.00 Blood Gas Modality Mask - simple FiO2 % 60.0 Test 02/19/25 13:26 Range/Units Serum Osmolality 382 H 278-298 mOsm/kg Lactic Acid Level 1.5 0.4-2.0 mmol/L Direct Bilirubin 0.2 <0.3 mg/dL Ammonia 12 11-32 umol/L Beta-Hydroxybutyric Acid 0.384 < 0.4 mmol/L Thyroid Stimulating Hormone (TSH) 0.03 L 0.55-4.78 uIU/mL Plasma/Serum Blood Alcohol < 3.0 <10 mg/dL Microbiology Date/Time Source Procedure Growth Status 02/19/25 20:07 Nose MRSA Screen - Final Complete 02/19/25 13:26 Blood Blood Culture - Preliminary NO GROWTH AFTER 72 HOURS OF INCUBATION. Resulted Assessment Devon's disease ? Cognitive dysfunction Metabolic encephalopathy Plan/Recommendation Monitoring Supportive treatment Telemetry Vitamin B12, folic acid, TSH Haldol 5 mg IM Q 8 hours Consider a trial of deutetrabenazine (Austedo) if I can get sample for him More recommendation per clinical course Progress: Poor This medical document was created using an electronic medical record system with [employer] system. Although this document has been carefully reviewed, there may still be some phonetic and typographical errors. These areas are purely typographical due to imperfections of the software programs, and do not reflect any compromise in the patient's medical care. Plan discussed with: Other ESME COWART MD Feb 23, 2025 19:52
[2025-02-24] VITALS (7 sets, daily range): BP systolic 109–119; BP diastolic 53–90; PULSE 60–97; RESP 16–18; TEMP 98.2–98.8; O2SAT 86–100
[2025-02-24 05:42] LABS: Basophils # (auto) 0 10 ^3/uL (0-0.2); Basophils % (auto) 0.3 % (0.0-2.0); Eosinophils # (auto) 0.1 10 ^3/uL (0-0.8); Hematocrit 33.5 % (41.0-53.0); Hemoglobin 11.3 g/dL (13.5-17.5); Lymphocytes # (auto) 0.7 10 ^3/uL (0.4-5.4); Lymphocytes % (auto) 13.2 % (10.0-50.0); Mean Corpuscular Hemoglobin 30.1 pg (28.0-32.0); Mean Corpuscular Hgb Conc. 33.8 g/dL (32.0-36.0); Monocytes # (auto) 0.3 10 ^3/uL (0-1.3); Monocytes % (auto) 6.1 % (0.0-12.0); Neutrophils # (auto) 4.4 10 ^3/uL (1.6-8.6); Neutrophils % (auto) 78.4 % (37.0-80.0); Platelet Count (auto) 218 10^3/uL (140-450); Red Blood Cells 3.76 10^6/uL (4.5-5.90); White Blood Cell 5.6 10^3/uL (4.4-10.8)
[2025-02-24 06:04] LABS: Albumin 3.2 g/dL (3.2-4.8); Alkaline Phosphatase 98 U/L (46-116); Anion Gap 12 (5-15); BUN/Creatinine Ratio 45.8 (10.0-20.0); Carbon Dioxide 22 mmol/L (20-31); Glucose 104 mg/dL (74-106); Potassium 3.5 mmol/L (3.5-5.1); Total Protein 6.3 g/dL (5.7-8.2)
[2025-02-24 06:05] LABS: Bilirubin, Total 0.4 mg/dL (0.2-1.0)
[2025-02-24 06:13] LABS: Alanine Aminotransferase 84 U/L (7-40); Aspartate Aminotransferase 82 U/L (13-40); Blood Urea Nitrogen 27 mg/dL (9-23); Chloride 116 mmol/L (98-107); Sodium 150 mmol/L (136-145)
[2025-02-24 11:24] LABS: Folate (Folic Acid) 18.53 ng/mL (>5.38)
[2025-02-24 11:29] LABS: Free T4 (Free Thyroxine) 1.21 ng/dL (0.89-1.76)
[2025-02-24] MEDS: VANCOMYCIN 1GM/200ML PM 200 ML IV SCH (11:33)
--- NOTE | 2025-02-24 12:32 | DVHPNRES ---
Progress Note Date Seen: Feb 24, 2025 Resident Creating Document: JUAN CRUZ RESIDENT Has the PT tested + for MRSA If YES, has PT been informed?: No Medical Necessity Reason Pt with a Central, PICC or Fol: No Subjective Review of Systems 49-year-old male with PMHx of Huntingtons disease, Hepatitis C, GERD, mood disorder, and long incarceration history (released 2 months ago after 25 years), presented from home with 3 days of progressive weakness, altered mental status, poor oral intake, cough, foul-smelling urine, and constipation. Family states he has been off and was found hypotensive with SBP in the 70s by EMS. PMHx: GERD Hepatitis C Huntingtons disease Adjustment disorder Mood disorder History of MRSA Surgical History: Mandibular fracture (prior) Cystoscopy & ureteroscopy Family History: Unknown Social History: Formerly incarcerated 25 years; now living with family. Smoker, alcohol, drug use unknown Medications: Amantadine, benztropine, mirtazapine, lorazepam, risperidone, pantoprazole, propranolol, ferrous sulfate, lactulose, tamsulosin, deuterabenazine, naloxone nasal spray 02/20/2025: Na 165, continue D5W at 150cc/h, urology consulted, CT scan ordered: showed bladder thickening, possible lung consolidations and large volume stool, bladder scan less than 200 no need of cystostomy for now but if distention suprapubic puncture will be performed, mild fevers, continue vanco/ meropenem, patient was in low dose levophed since midnight 02/21/2025: levophed off, Na 157, D5W at 75cc/h, haloperidol jj, bladder scan less than 200cc today as well, case discussed with the brother today, he stated his mental status is getting to baseline (patient has advance dementia), downgrade to telemetry 02/23/2025: Patient's status discussed with the patient's brother POA, the option of PEG tube was discussed, he agrees, GI consult is placed 05/27/2025: NG tube placed, tube feedings started, tylenol PO started Objective vital signs Vital Sign Date Time Temp Pulse Resp B/P (MAP) Pulse Ox O2 Delivery O2 Flow Rate FiO2 02/24/25 10:39 90 Nasal Cannula 2.0 02/24/25 08:56 61 16 109/53 (71) 02/24/25 08:00 28 02/24/25 05:00 98.2 98.2 Total Intake and Output 02/23/25 02/23/25 02/24/25 15:00 23:00 07:00 Intake Total 900 ml 100.2 ml Balance 900 ml 100.2 ml medications Current Medications Medications Dose Ordered Sig/Jj Route Start Time Stop Time Status Last Admin Dose Admin Vancomycin HCl 0 ml @ 0 mls/hr UD IV 02/19/25 15:30 Lorazepam 1 mg Q5MINP PRN IV 02/19/25 15:30 02/24/25 02:55 1 MG Pantoprazole Sodium 40 mg DAILY IV 02/20/25 10:00 02/24/25 08:20 40 MG Diagnostic Test (Pha) 1 strip Q6HR 02/19/25 18:00 02/24/25 06:03 1 STRIP Dextrose 50 ml UD PRN IV 02/19/25 16:45 Enoxaparin Sodium 40 mg DAILY SC 02/20/25 10:00 02/24/25 08:21 40 MG Dextrose 1,000 ml @ 75 mls/hr [id number] IV 02/21/25 07:00 02/24/25 06:01 75 MLS/HR Haloperidol Lactate 5 mg Q8HR IM 02/21/25 14:00 02/24/25 06:03 5 MG Vancomycin HCl 200 ml @ 160 mls/hr Q8H IV 02/24/25 12:00 02/24/25 11:33 160 MLS/HR Examination General Appearance: moderate distress (AOX0), Other HEENT: Other (dry mouth, poor oral hygine ) Respiratory: Clear to auscultation Cardiovascular: Regular rate, Other (tachycardic) Abdominal: Soft Extremities: No edema Neuro: Other (caquectic ) laboratory and microbiology Laboratory Tests 02/24/25 05:12 Test 02/24/25 05:12 Range/Units Serum Glucose 104 74-106 mg/dL Microbiology Date/Time Source Procedure Growth Status 02/19/25 20:07 Nose MRSA Screen - Final Complete 02/19/25 13:26 Blood Blood Culture - Preliminary NO GROWTH AFTER 72 HOURS OF INCUBATION. Resulted Problem List/Assessment/Plan Problem List/Assessment/Plan #Acute metabolic encephalopathy likely multifactorial (sepsis, Huntingtons, chronic illness, electrolyte derangement) #Severe Hypernatremia (Na 175), likely chronic NG tube, tube feedings Telemetry status Slow correction with D5W 75cc/h Monitor Na q4h, avoid rapid shifts #[place] disease Continue supportive care DNR/DNI: chemical code CT head: ischemic chronic changes, global atrophy Haloperidol JJ GI consult: improve protein intake #Sepsis Likely secondary to UTI and Aspiration pneumonia #Complicated UTI #Possible pneumonia gram +/ gram- . CXR reviewed Blood and urine cultures, UA pending Started on IV fluids, vancomycin, meropenem CT scan ordered: showed bladder thickening, possible lung consolidations and large volume stool #Constipation lactulose will be restarted after stabilization #GERD Protonix IV #Ho/Hepatitis C monitor #Urethral stricture disease #Possible false urethral passage #Urinary incontinence Bladder scan: 197 cc If bladder is distended, please request Interventional Radiology to place a temporary suprapubic catheter. When patient was metabolically stable, we will consider performing a diagnostic cystoscopy and possible DVIU Continue IV fluid D5W 75 mL/hour. 05/27/2025: NG tube placed, tube feedings started, tylenol PO started Code status: chemical code: no compressions, no defibrillation, no intubation, discussed with the brother for 22 min Case discussed with Dr Lee Plan discussed with: Patient, Other (rn) My Orders My Orders Orders - JUAN CRUZ RESIDENT Procedure Category Date Status Time Vancomycin 1gm/200ml PHA 02/24/25 In Process Pm 12:00 Complete Blood Count LAB 02/25/25 Verified 04:00 Creatinine LAB 02/25/25 Verified 04:00 Vancomycin,Trough LAB 02/25/25 Verified 11:00 Vancomycin Per ELIER 02/24/25 In Process Pharmacy Protoc 10:27 Place Ng ORDERS 02/24/25 Transmitted 11:17 Ngt/Ogt ED NURSING 02/24/25 Transmitted Communication Order ORDERS 02/24/25 Transmitted 11:17 Dietary Evaluation Review Comments: 1. TPN if NPO>5 days 2. Damon 1 pk BID 3. Advance diet as medically feasible Expected Outcomes/Goals: To meet >75% estimated needs Fu 2-3 days Date of Service: Feb 24, 2025 Billing Provider: VY LEE MD Common Visit Codes: [id number] INP/OBS CARE(HIGH) JUAN CRUZ RESIDENT Feb 24, 2025 12:32 VY LEE MD Feb 25, 2025 15:30
--- NOTE | 2025-02-24 13:56 | DVH ---
EXAM: XY CHEST XRAY 1 VIEW Indication: verify ngt placement Technique: Single frontal view of the chest was obtained Comparison: XY CHEST XRAY 1 VIEW on DOS: 02/21/25, XY CHEST PORTABLE on DOS: 02/19/25 FINDINGS: Lines and Tubes: Enteric tube tip projects over the expected region of the hiatal hernia sac. Lungs: No focal consolidation. Pleura: No effusion. No pneumothorax. Cardiomediastinal contours: Unremarkable. Suggestion of hiatal hernia Bones: No acute osseous abnormality. IMPRESSION: Enteric tube is visualized with tip projecting in the hiatal hernia sac.
--- NOTE | 2025-02-24 20:26 | DVH ---
CHEST RADIOGRAPH Indication: NGT pulled 10 reinserted by 5. Please re-verify placement Technique: Single frontal view of the chest was obtained Comparison: XY CHEST XRAY 1 VIEW on DOS: 02/24/25, XY CHEST XRAY 1 VIEW on DOS: 02/21/25, XY CHEST PORTAB LE on DOS: 02/19/25 FINDINGS: Lines and Tubes: Enteric tube coiled back on itself at the GE junction. It is uncertain if this is in the stomach at this time. Lungs: No focal consolidation. Pleura: No effusion. No pneumothorax. Cardiomediastinal contours: Unremarkable Bones: No acute osseous abnormality. IMPRESSION: 1. Enteric tube coiled back on itself at the GE junction. 2. Does not appear in the stomach at this time.
[2025-02-25] VITALS (8 sets, daily range): BP systolic 112–124; BP diastolic 56–93; PULSE 63–89; RESP 16–18; TEMP 97.9–99.1; O2SAT 94–98
[2025-02-25 06:20] LABS: Basophils # (auto) 0 10 ^3/uL (0-0.2); Basophils % (auto) 0.5 % (0.0-2.0); Eosinophils # (auto) 0.1 10 ^3/uL (0-0.8); Eosinophils % (auto) 2.3 % (0.0-7.0); Hematocrit 33.2 % (41.0-53.0); Hemoglobin 11.3 g/dL (13.5-17.5); Lymphocytes # (auto) 0.8 10 ^3/uL (0.4-5.4); Lymphocytes % (auto) 14.5 % (10.0-50.0); Mean Corpuscular Hemoglobin 30.4 pg (28.0-32.0); Mean Corpuscular Volume 89.4 fL (80.0-100.0); Monocytes # (auto) 0.4 10 ^3/uL (0-1.3); Monocytes % (auto) 6.2 % (0.0-12.0); Neutrophils # (auto) 4.4 10 ^3/uL (1.6-8.6); Neutrophils % (auto) 76.5 % (37.0-80.0); Nucleated Red Blood Cells % 0.1 %; Platelet Count (auto) 229 10^3/uL (140-450); Red Blood Cells 3.71 10^6/uL (4.5-5.90); White Blood Cell 5.8 10^3/uL (4.4-10.8)
[2025-02-25 06:26] LABS: Albumin 3.4 g/dL (3.2-4.8); Alkaline Phosphatase 93 U/L (46-116); Anion Gap 12 (5-15); BUN/Creatinine Ratio 42.3 (10.0-20.0); Blood Urea Nitrogen 22 mg/dL (9-23); Carbon Dioxide 22 mmol/L (20-31); Glucose 86 mg/dL (74-106); Total Protein 6.6 g/dL (5.7-8.2)
[2025-02-25 06:27] LABS: Bilirubin, Total 0.5 mg/dL (0.2-1.0)
[2025-02-25 06:29] LABS: Alanine Aminotransferase 69 U/L (7-40); Calcium 8.4 mg/dL (8.7-10.4); Chloride 112 mmol/L (98-107); Potassium 3.2 mmol/L (3.5-5.1); Sodium 146 mmol/L (136-145)
[2025-02-25 07:32] LABS: Aspartate Aminotransferase 71 U/L (13-40)
[2025-02-25] MEDS: POTASSIUM CHL 20MEQ/100ML 100 ML IV SCH (09:25)
--- NOTE | 2025-02-25 10:58 | DVH ---
EXAM: XY CHEST XRAY 1 VIEW Indication: NGT placement Technique: Single frontal view of the chest was obtained Comparison: XY CHEST XRAY 1 VIEW on DOS: 02/24/25, XY CHEST XRAY 1 VIEW on DOS: 02/24/25, XY CHEST XRAY 1 VIEW on DOS: 02/21/25, XY CHEST PORTABLE on DOS: 02/19/25 FINDINGS: Lines and Tubes: Enteric tube tip projects over expected region stomach. Lungs: Diffuse interstitial opacities Pleura: No effusion. No pneumothorax. Cardiomediastinal contours: Unremarkable Bones: No acute osseous abnormality. IMPRESSION: Diffuse interstitial opacities. Endotracheal tube projects in the expected region of the stomach.
--- NOTE | 2025-02-25 13:00 | DVH ---
CHEST RADIOGRAPH Indication: NGT placement Technique: Single frontal view of the chest was obtained Comparison: XY CHEST XRAY 1 VIEW on DOS: 02/25/25 FINDINGS: Lines and Tubes: Enteric tube terminates in the stomach. Lungs: Hazy opacities. Pleura: No effusion. No pneumothorax. Cardiomediastinal contours: Unremarkable Bones: No acute osseous abnormality. IMPRESSION: 1. Enteric tube tip terminates in the stomach. 2. Hazy bilateral opacities reflect edema or pneumonia.
--- NOTE | 2025-02-25 15:57 | DVHPNRES ---
Progress Note Date Seen: Feb 25, 2025 Resident Creating Document: JUAN CRUZ RESIDENT Has the PT tested + for MRSA If YES, has PT been informed?: No Medical Necessity Reason Pt with a Central, PICC or Fol: No Subjective Review of Systems 49-year-old male with PMHx of Huntingtons disease, Hepatitis C, GERD, mood disorder, and long incarceration history (released 2 months ago after 25 years), presented from home with 3 days of progressive weakness, altered mental status, poor oral intake, cough, foul-smelling urine, and constipation. Family states he has been off and was found hypotensive with SBP in the 70s by EMS. PMHx: GERD Hepatitis C Huntingtons disease Adjustment disorder Mood disorder History of MRSA Surgical History: Mandibular fracture (prior) Cystoscopy & ureteroscopy Family History: Unknown Social History: Formerly incarcerated 25 years; now living with family. Smoker, alcohol, drug use unknown Medications: Amantadine, benztropine, mirtazapine, lorazepam, risperidone, pantoprazole, propranolol, ferrous sulfate, lactulose, tamsulosin, deuterabenazine, naloxone nasal spray 02/20/2025: Na 165, continue D5W at 150cc/h, urology consulted, CT scan ordered: showed bladder thickening, possible lung consolidations and large volume stool, bladder scan less than 200 no need of cystostomy for now but if distention suprapubic puncture will be performed, mild fevers, continue vanco/ meropenem, patient was in low dose levophed since midnight 02/21/2025: levophed off, Na 157, D5W at 75cc/h, haloperidol jj, bladder scan less than 200cc today as well, case discussed with the brother today, he stated his mental status is getting to baseline (patient has advance dementia), downgrade to telemetry 02/23/2025: Patient's status discussed with the patient's brother POMeka, the option of PEG tube was discussed, he agrees, GI consult is placed 02/24/2025: NG tube placed, tube feedings started, tylenol PO started 02/25/2025: NG tube was misplaced, feedings were not started, today after multiple attempts, NG tube placed, pending start feedings, case discussed with Dr Enio GALLO, very high risk of intubation and complications if PEG tube will be placed, family meeting is planning for tomorrow to redefine goals of care (Today i talked with his uncle Quirino, which is his POA), K IV given Objective vital signs Vital Sign Date Time Temp Pulse Resp B/P (MAP) Pulse Ox O2 Delivery O2 Flow Rate FiO2 02/25/25 13:00 98.2 65 16 123/56 (78) 98 98.2 02/25/25 08:00 Nasal Cannula* 2 28 Total Intake and Output 02/24/25 02/24/25 02/25/25 15:00 23:00 07:00 Intake Total 350 ml 375 ml 0 ml Balance 350 ml 375 ml 0 ml medications Current Medications Medications Dose Ordered Sig/Jj Route Start Time Stop Time Status Last Admin Dose Admin Vancomycin HCl 0 ml @ 0 mls/hr UD IV 02/19/25 15:30 Lorazepam 1 mg Q5MINP PRN IV 02/19/25 15:30 02/24/25 15:25 1 MG Pantoprazole Sodium 40 mg DAILY IV 02/20/25 10:00 02/25/25 09:25 40 MG Diagnostic Test (Pha) 1 strip Q6HR 02/19/25 18:00 02/25/25 12:00 1 STRIP Dextrose 50 ml UD PRN IV 02/19/25 16:45 Enoxaparin Sodium 40 mg DAILY SC 02/20/25 10:00 02/25/25 09:25 40 MG Dextrose 1,000 ml @ 75 mls/hr [id number] IV 02/21/25 07:00 02/24/25 20:18 75 MLS/HR Haloperidol Lactate 5 mg Q8HR IM 02/21/25 14:00 02/25/25 14:18 5 MG Enteral Nutritional Formula 1,000 ml 30ML/HR GT 02/24/25 14:45 Acetaminophen 325 mg Q6HP PRN GT 02/24/25 18:00 Vancomycin HCl 200 ml @ 200 mls/hr Q12H IV 02/25/25 16:00 Examination General Appearance: moderate distress (AOX0), Other HEENT: Other (dry mouth, poor oral hygine ) Respiratory: Clear to auscultation Cardiovascular: Regular rate, Other (tachycardic) Abdominal: Soft Extremities: No edema Neuro: Other (caquectic ) laboratory and microbiology Laboratory Tests 02/25/25 04:44 Test 02/25/25 04:44 Range/Units Serum Glucose 86 74-106 mg/dL Microbiology Date/Time Source Procedure Growth Status 02/19/25 20:07 Nose MRSA Screen - Final Complete 02/19/25 13:26 Blood Blood Culture - Final NO GROWTH AFTER 5 DAYS OF INCUBATION. Complete Problem List/Assessment/Plan Problem List/Assessment/Plan #Acute metabolic encephalopathy likely multifactorial (sepsis, Huntingtons, chronic illness, electrolyte derangement) #Severe Hypernatremia (Na 175), likely chronic NG tube, tube feedings Telemetry status Slow correction with D5W 75cc/h Monitor Na q4h, avoid rapid shifts #[place] disease Continue supportive care DNR/DNI: chemical code CT head: ischemic chronic changes, global atrophy Haloperidol JJ GI consult: improve protein intake #Sepsis Likely secondary to UTI and Aspiration pneumonia #Complicated UTI #Possible pneumonia gram +/ gram- . CXR reviewed Blood final negative Started on IV fluids, vancomycin, meropenem CT scan ordered: showed bladder thickening, possible lung consolidations and large volume stool #Constipation lactulose will be restarted after stabilization #GERD Protonix IV #Ho/Hepatitis C monitor #Urethral stricture disease #Possible false urethral passage #Urinary incontinence If bladder is distended, please request Interventional Radiology to place a temporary suprapubic catheter. When patient was metabolically stable, we will consider performing a diagnostic cystoscopy and possible DVIU #Hypokalemia K iv Continue IV fluid D5W 75 mL/hour. 02/25/2025: NG tube was misplaced, feedings were not started, today after multiple attempts, NG tube placed, pending start feedings, case discussed with Dr Enio GALLO, very high risk of intubation and complications if PEG tube will be placed, family meeting is planning for tomorrow to redefine goals of care (Today i talked with his uncle Quirino, which is his POA) Code status: chemical code: no compressions, no defibrillation, no intubation, discussed with his uncle for 22 min Case discussed with Dr Alfred Ambrocio discussed with: Patient, Other (rn) My Orders My Orders Orders - JUAN CRUZ Procedure Category Date Status Time Complete Blood Count LAB 02/26/25 Verified 04:00 Creatinine LAB 02/26/25 Verified 04:00 Chest Xray 1 View XY 02/25/25 Resulted 10:15 Chest Xray 1 View XY 02/25/25 Resulted 12:24 Vancomycin 1gm/200ml PHA 02/25/25 In Process Pm 16:00 Vancomycin,Trough LAB 02/27/25 Verified 03:00 Vancomycin Per ELIER 02/25/25 In Process Pharmacy Protoc 16:00 Head Of Bed To =/>70 ELIER 02/25/25 In Process Degrees 15:32 Dietary Evaluation Review Comments: 1. TPN if NPO>5 days 2. Damon 1 pk BID 3. Advance diet as medically feasible Expected Outcomes/Goals: To meet >75% estimated needs Fu 2-3 days Date of Service: Feb 25, 2025 Billing Provider: VY LEE MD Common Visit Codes: [id number] INP/OBS CARE(HIGH) JUAN CRUZ RESIDENT Feb 25, 2025 15:57 VY LEE MD Feb 27, 2025 11:47
[2025-02-25] MEDS: VANCOMYCIN 1GM/200ML PM 200 ML IV SCH (16:15)
--- NOTE | 2025-02-25 18:56 | DVHPN2 ---
Progress Note - Dictate Date Seen: Feb 25, 2025 Has the PT tested + for MRSA If YES, has PT been informed?: No Medical Necessity Reason Pt with a Central, PICC or Fol: No Subjective Patient was seen at bedside Arousable but lethargic Continued poor oral intake NG tube was placed with plans for starting enteral tube feedings vital signs Vital Sign Date Time Temp Pulse Resp B/P (MAP) Pulse Ox O2 Delivery O2 Flow Rate FiO2 02/25/25 17:20 99.0 89 17 114/93 (100) 98 99.0 02/25/25 08:00 Nasal Cannula* 2 28 Total Intake and Output 02/24/25 02/24/25 02/25/25 15:00 23:00 07:00 Intake Total 350 ml 375 ml 0 ml Balance 350 ml 375 ml 0 ml medications Current Medications Medications Dose Ordered Sig/Jj Route Start Time Stop Time Status Last Admin Dose Admin Vancomycin HCl 0 ml @ 0 mls/hr UD IV 02/19/25 15:30 Lorazepam 1 mg Q5MINP PRN IV 02/19/25 15:30 02/24/25 15:25 1 MG Pantoprazole Sodium 40 mg DAILY IV 02/20/25 10:00 02/25/25 09:25 40 MG Diagnostic Test (Pha) 1 strip Q6HR 02/19/25 18:00 02/25/25 17:06 1 STRIP Dextrose 50 ml UD PRN IV 02/19/25 16:45 Enoxaparin Sodium 40 mg DAILY SC 02/20/25 10:00 02/25/25 09:25 40 MG Dextrose 1,000 ml @ 75 mls/hr [id number] IV 02/21/25 07:00 02/25/25 17:12 75 MLS/HR Haloperidol Lactate 5 mg Q8HR IM 02/21/25 14:00 02/25/25 14:18 5 MG Enteral Nutritional Formula 1,000 ml 30ML/HR GT 02/24/25 14:45 Acetaminophen 325 mg Q6HP PRN GT 02/24/25 18:00 Vancomycin HCl 200 ml @ 200 mls/hr Q12H IV 02/25/25 16:00 02/25/25 16:15 200 MLS/HR laboratory and microbiology Laboratory Tests 02/25/25 04:44 Test 02/25/25 04:44 Range/Units Serum Glucose 86 74-106 mg/dL Problems(with codes): (1) [place]'s disease (2) Hypernatremia (3) Generalized weakness (4) Metabolic alkalosis (5) Dehydration Prognosis Plan Patient is very high-risk for MAC sedation and may require intubation It would be difficult to wean the patient off the mechanical ventilator after procedure Patient is a chemical code only at this time Family meeting is being planned for tomorrow morning to decide further goals of care If anesthesia is not able to safely provide MAC for this patient for a PEG tube placement, then the other option would be to request IR or Radiology to see if they are able to place a PEG tube under fluoroscopy Will discuss with Dr. Cole in Radiology Dietary Evaluation Review Comments: 1. TPN if NPO>5 days 2. Damon 1 pk BID 3. Advance diet as medically feasible Expected Outcomes/Goals: To meet >75% estimated needs Fu 2-3 days Plan discussed with: Patient, Other (Dr Smith) VEENA MCKEON MD Feb 25, 2025 18:56
[2025-02-25] MEDS: Jevity 1.2 Cal/Fiber 1 Liter GT SCH (20:16)
[2025-02-25] MEDS: MEROPENEM 1GM IVPB 50 ML IV ONE (20:16)
[2025-02-26] VITALS (8 sets, daily range): BP systolic 95–124; BP diastolic 57–97; PULSE 71–97; RESP 16–19; TEMP 97.7–100.1; O2SAT 94–98
[2025-02-26] MEDS: MEROPENEM 1GM IVPB 50 ML IV SCH (05:41)
[2025-02-26 07:00] LABS: Basophils # (auto) 0 10 ^3/uL (0-0.2); Basophils % (auto) 0.2 % (0.0-2.0); Eosinophils # (auto) 0.1 10 ^3/uL (0-0.8); Eosinophils % (auto) 1.3 % (0.0-7.0); Hematocrit 36.5 % (41.0-53.0); Hemoglobin 12.2 g/dL (13.5-17.5); Mean Corpuscular Hemoglobin 29.7 pg (28.0-32.0); Mean Corpuscular Hgb Conc. 33.4 g/dL (32.0-36.0); Mean Corpuscular Volume 88.9 fL (80.0-100.0); Monocytes # (auto) 0.5 10 ^3/uL (0-1.3); Monocytes % (auto) 5.4 % (0.0-12.0); Neutrophils # (auto) 7.5 10 ^3/uL (1.6-8.6); Neutrophils % (auto) 82.1 % (37.0-80.0); Nucleated Red Blood Cells % 0.1 %; Platelet Count (auto) 255 10^3/uL (140-450); Red Blood Cells 4.11 10^6/uL (4.5-5.90); Red Cell Distribution Width 13.2 % (11.8-14.3); White Blood Cell 9.2 10^3/uL (4.4-10.8)
[2025-02-26 07:08] LABS: Anion Gap 11 (5-15); Carbon Dioxide 23 mmol/L (20-31); Potassium 3.8 mmol/L (3.5-5.1); Sodium 147 mmol/L (136-145)
[2025-02-26 07:09] LABS: Calcium 9.1 mg/dL (8.7-10.4); Chloride 113 mmol/L (98-107)
[2025-02-26 07:14] LABS: BUN/Creatinine Ratio 38.6 (10.0-20.0); Blood Urea Nitrogen 22 mg/dL (9-23); Glucose 83 mg/dL (74-106)
[2025-02-26] MEDS: ACETAMINOPHEN 650 mg PER 20.3 mL UD GT PRN (09:12)
[2025-02-26] MEDS ORDERED: DEUT12TA PO (14:02)
--- NOTE | 2025-02-26 15:45 | DVHPNRES ---
Progress Note Date Seen: Feb 26, 2025 Resident Creating Document: JUAN CRUZ RESIDENT Has the PT tested + for MRSA If YES, has PT been informed?: No Medical Necessity Reason Pt with a Central, PICC or Fol: No Subjective Review of Systems 49-year-old male with PMHx of Huntingtons disease, Hepatitis C, GERD, mood disorder, and long incarceration history (released 2 months ago after 25 years), presented from home with 3 days of progressive weakness, altered mental status, poor oral intake, cough, foul-smelling urine, and constipation. Family states he has been off and was found hypotensive with SBP in the 70s by EMS. PMHx: GERD Hepatitis C Huntingtons disease Adjustment disorder Mood disorder History of MRSA Surgical History: Mandibular fracture (prior) Cystoscopy & ureteroscopy Family History: Unknown Social History: Formerly incarcerated 25 years; now living with family. Smoker, alcohol, drug use unknown Medications: Amantadine, benztropine, mirtazapine, lorazepam, risperidone, pantoprazole, propranolol, ferrous sulfate, lactulose, tamsulosin, deuterabenazine, naloxone nasal spray 02/20/2025: Na 165, continue D5W at 150cc/h, urology consulted, CT scan ordered: showed bladder thickening, possible lung consolidations and large volume stool, bladder scan less than 200 no need of cystostomy for now but if distention suprapubic puncture will be performed, mild fevers, continue vanco/ meropenem, patient was in low dose levophed since midnight 02/21/2025: levophed off, Na 157, D5W at 75cc/h, haloperidol jj, bladder scan less than 200cc today as well, case discussed with the brother today, he stated his mental status is getting to baseline (patient has advance dementia), downgrade to telemetry 02/23/2025: Patient's status discussed with the patient's brother POMeka, the option of PEG tube was discussed, he agrees, GI consult is placed 02/24/2025: NG tube placed, tube feedings started, tylenol PO started 02/25/2025: NG tube was misplaced, feedings were not started, today after multiple attempts, NG tube placed, pending start feedings, case discussed with Dr Enio GALLO, very high risk of intubation and complications if PEG tube will be placed, family meeting is planning for tomorrow to redefine goals of care (Today i talked with his uncle Quirino, which is his POA), K IV given 02/26/2025: Family meeting: Quirino his uncle RK and his were present, according to him, patient went to his place on December 20 and he was able to walk 20 feet, eat puree diet and said few phrases, but 2 weeks back he started to declined, not able to eat, be more drowsy and not able to walk, patient was also in many medications (mood and movement disorder meds), the possibility of intubation after PEG tube was addressed, so for now no PEG tube, also the option of home hospice was talked, they want more information, we tried at bedside feeding with apple sauce, he was eager to eat but not swallow entirely, we will continue tube feedings and slowly feeding with spoon, also deutetrabenazine will be started. Objective vital signs Vital Sign Date Time Temp Pulse Resp B/P (MAP) Pulse Ox O2 Delivery O2 Flow Rate FiO2 02/26/25 08:00 79 18 96 Nasal Cannula* 2 28 02/26/25 05:00 97.9 107/57 (74) 97.9 Total Intake and Output 02/25/25 02/25/25 02/26/25 15:00 23:00 07:00 Intake Total 0 ml 0 ml Balance 0 ml 0 ml medications Current Medications Medications Dose Ordered Sig/Jj Route Start Time Stop Time Status Last Admin Dose Admin Vancomycin HCl 0 ml @ 0 mls/hr UD IV 02/19/25 15:30 Lorazepam 1 mg Q5MINP PRN IV 02/19/25 15:30 02/24/25 15:25 1 MG Pantoprazole Sodium 40 mg DAILY IV 02/20/25 10:00 02/26/25 09:12 40 MG Diagnostic Test (Pha) 1 strip Q6HR 02/19/25 18:00 02/26/25 11:56 1 STRIP Dextrose 50 ml UD PRN IV 02/19/25 16:45 Enoxaparin Sodium 40 mg DAILY SC 02/20/25 10:00 02/26/25 09:12 40 MG Dextrose 1,000 ml @ 75 mls/hr [id number] IV 02/21/25 07:00 02/25/25 17:12 75 MLS/HR Haloperidol Lactate 5 mg Q8HR IM 02/21/25 14:00 02/26/25 14:08 5 MG Enteral Nutritional Formula 1,000 ml 30ML/HR GT 02/24/25 14:45 02/25/25 20:16 1,000 ML Acetaminophen 325 mg Q6HP PRN GT 02/24/25 18:00 02/26/25 09:12 325 MG Vancomycin HCl 200 ml @ 200 mls/hr Q12H IV 02/25/25 16:00 02/26/25 04:33 200 MLS/HR Meropenem 50 ml @ 17 mls/hr Q8HR IV 02/26/25 06:00 02/26/25 14:08 17 MLS/HR Patient Own Medication 1 BID PO 02/26/25 22:00 UNV Examination Cachectic-appearing patient with poor dentition and marked muscle wasting. Patient exhibits continuous choreiform movements involving the face and upper extremities. Neurological exam notable for spastic rigidity, hyperreflexia, and multiple fixed contractures, particularly in the lower limbs. Limited voluntary movement and reduced verbal output. Lungs clear to auscultation bilaterally. Cardiovascular exam with regular rate and rhythm, no murmurs. Abdomen soft, non-tender, non-distended. laboratory and microbiology Laboratory Tests 02/26/25 05:55 Test 02/26/25 05:55 Range/Units Serum Glucose 83 74-106 mg/dL Microbiology Date/Time Source Procedure Growth Status 02/19/25 20:07 Nose MRSA Screen - Final Complete 02/19/25 13:26 Blood Blood Culture - Final NO GROWTH AFTER 5 DAYS OF INCUBATION. Complete Problem List/Assessment/Plan Problem List/Assessment/Plan #Acute metabolic encephalopathy likely multifactorial (sepsis, Huntingtons, chronic illness, electrolyte derangement) #Severe Hypernatremia (Na 175), likely chronic #Failure to thrive #Severe protein/caloric malnutrition #Severe dehydration due to poor oral intake #[place] disease, late stage #Sepsis #Complicated UTI #Possible aspiration pneumonia #Possible pneumonia gram +/ gram- . #Constipation #GERD #Hypokalemia #Ho/Hepatitis C #Urethral stricture disease #Possible false urethral passage #Urinary incontinence NG tube, tube feedings Telemetry status Slow correction with D5W 75cc/h Monitor Na daily, avoid rapid shifts Continue supportive care CT head: ischemic chronic changes, global atrophy Haloperidol JJ Continue on IV fluids, vancomycin, meropenem CT scan ordered: showed bladder thickening, possible lung consolidations and large volume stool If bladder is distended, please request Interventional Radiology to place a temporary suprapubic catheter. When patient was metabolically stable, we will consider performing a diagnostic cystoscopy and possible DVIU Tylenol PO JJ 02/26/2025: Family meeting: Quirino his uncle KR and his were present, according to him, patient went to his place on December 20 and he was able to walk 20 feet, eat puree diet and said few phrases, but 2 weeks back he started to declined, not able to eat, be more drowsy and not able to walk, patient was also in many medications (mood and movement disorder meds), the possibility of intubation after PEG tube was addressed, so for now no PEG tube, also the option of home hospice was talked, they want more information, we tried at bedside feeding with apple sauce, he was eager to eat but not swallow entirely, we will continue tube feedings and slowly feeding with spoon, also deutetrabenazine will be started. Code status: chemical code: no compressions, no defibrillation, no intubation, discussed with his uncle for 22 min Case discussed with Dr Lee Plan discussed with: Patient, Other (rn) My Orders My Orders Orders - JUAN CRUZ Procedure Category Date Status Time Meropenem 1gm Ivpb PHA 02/26/25 In Process (Merrem 1gm/ Ns) 06:00 Creatinine LAB 02/27/25 Verified 04:00 Patients Own PHA 02/26/25 Logged Medication 22:00 Dietary Evaluation Review Comments: 1. TPN if NPO>5 days 2. Damon 1 pk BID 3. Advance diet as medically feasible Expected Outcomes/Goals: To meet >75% estimated needs Fu 2-3 days Date of Service: Feb 26, 2025 Billing Provider: VY LEE MD Common Visit Codes: [id number] INP/OBS CARE(HIGH) JUAN CRUZ Feb 26, 2025 15:45 VY LEE MD Feb 27, 2025 12:08
--- NOTE | 2025-02-26 16:48 | DVHPN2 ---
Progress Note - Dictate Date Seen: Feb 26, 2025 Has the PT tested + for MRSA If YES, has PT been informed?: No Medical Necessity Reason Pt with a Central, PICC or Fol: No Subjective Patient is arousable but lethargic Continued poor oral intake NG tube was placed with plans for starting enteral tube feedings at 30 ml/hr vital signs Vital Sign Date Time Temp Pulse Resp B/P (MAP) Pulse Ox O2 Delivery O2 Flow Rate FiO2 02/26/25 08:00 77 02/26/25 08:00 18 96 Nasal Cannula* 2 28 02/26/25 05:00 97.9 107/57 (74) 97.9 Total Intake and Output 02/25/25 02/25/25 02/26/25 15:00 23:00 07:00 Intake Total 0 ml 0 ml Balance 0 ml 0 ml medications Current Medications Medications Dose Ordered Sig/Jj Route Start Time Stop Time Status Last Admin Dose Admin Vancomycin HCl 0 ml @ 0 mls/hr UD IV 02/19/25 15:30 Lorazepam 1 mg Q5MINP PRN IV 02/19/25 15:30 02/24/25 15:25 1 MG Pantoprazole Sodium 40 mg DAILY IV 02/20/25 10:00 02/26/25 09:12 40 MG Diagnostic Test (Pha) 1 strip Q6HR 02/19/25 18:00 02/26/25 11:56 1 STRIP Dextrose 50 ml UD PRN IV 02/19/25 16:45 Enoxaparin Sodium 40 mg DAILY SC 02/20/25 10:00 02/26/25 09:12 40 MG Dextrose 1,000 ml @ 75 mls/hr [id number] IV 02/21/25 07:00 02/25/25 17:12 75 MLS/HR Haloperidol Lactate 5 mg Q8HR IM 02/21/25 14:00 02/26/25 14:08 5 MG Enteral Nutritional Formula 1,000 ml 30ML/HR GT 02/24/25 14:45 02/25/25 20:16 1,000 ML Acetaminophen 325 mg Q6HP PRN GT 02/24/25 18:00 02/26/25 09:12 325 MG Vancomycin HCl 200 ml @ 200 mls/hr Q12H IV 02/25/25 16:00 02/26/25 04:33 200 MLS/HR Meropenem 50 ml @ 17 mls/hr Q8HR IV 02/26/25 06:00 02/26/25 14:08 17 MLS/HR Patient Own Medication 1 BID PO 02/26/25 22:00 objective Patient is having tremors , Choreiform movements as well as in no distress unable to communicate HEENT examination no pallor Lungs clear Cardiovascular unremarkable Abdomen is soft no distention no rigidity no masses laboratory and microbiology Laboratory Tests 02/26/25 05:55 Test 02/26/25 05:55 Range/Units Serum Glucose 83 74-106 mg/dL Problems(with codes): (1) [place]'s disease (2) Hypernatremia (3) Generalized weakness (4) Metabolic alkalosis (5) Dehydration Prognosis Plan Patient is very high-risk for MAC sedation and may require intubation It would be difficult to wean the patient off the mechanical ventilator after procedure Patient is a chemical code only at this time Family meeting not done? 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 Cole in Radiology Dietary Evaluation Review Comments: 1. TPN if NPO>5 days 2. Damon 1 pk BID 3. Advance diet as medically feasible Expected Outcomes/Goals: To meet >75% estimated needs Fu 2-3 days Plan discussed with: Other (Dr Smith) VEENA MCKEON MD Feb 26, 2025 16:48
[2025-02-26] MEDS: DEUTETRABENAZINE 12 MG PO SCH (22:00)
[2025-02-27] VITALS (10 sets, daily range): BP systolic 97–172; BP diastolic 58–139; PULSE 66–115; RESP 16–22; TEMP 97.5–100; O2SAT 95–99
[2025-02-27 03:17] LABS: Potassium 4.2 mmol/L (3.5-5.1)
[2025-02-27 03:18] LABS: Anion Gap 7 (5-15); Carbon Dioxide 25 mmol/L (20-31)
[2025-02-27 03:23] LABS: BUN/Creatinine Ratio 43.1 (10.0-20.0); Blood Urea Nitrogen 22 mg/dL (9-23); Glucose 106 mg/dL (74-106)
[2025-02-27 03:24] LABS: Calcium 8.4 mg/dL (8.7-10.4); Chloride 114 mmol/L (98-107); Sodium 146 mmol/L (136-145)
[2025-02-27 03:31] LABS: Basophils # (auto) 0 10 ^3/uL (0-0.2); Basophils % (auto) 0.5 % (0.0-2.0); Eosinophils # (auto) 0.1 10 ^3/uL (0-0.8); Eosinophils % (auto) 1.5 % (0.0-7.0); Lymphocytes # (auto) 1.1 10 ^3/uL (0.4-5.4); Lymphocytes % (auto) 16.6 % (10.0-50.0); Mean Corpuscular Hgb Conc. 33.3 g/dL (32.0-36.0); Mean Corpuscular Volume 89.9 fL (80.0-100.0); Monocytes # (auto) 0.6 10 ^3/uL (0-1.3); Monocytes % (auto) 8.5 % (0.0-12.0); Neutrophils # (auto) 4.9 10 ^3/uL (1.6-8.6); Neutrophils % (auto) 72.9 % (37.0-80.0); Platelet Count (auto) 260 10^3/uL (140-450); Red Blood Cells 4.01 10^6/uL (4.5-5.90); Red Cell Distribution Width 13.6 % (11.8-14.3); White Blood Cell 6.7 10^3/uL (4.4-10.8)
[2025-02-27] MEDS: VANCOMYCIN 1GM/200ML PM 200 ML IV SCH (11:18)
[2025-02-27] MEDS: BENZTROPINE MESY 0.5 MG TAB PO SCH (11:24)
--- NOTE | 2025-02-27 14:16 | DVH ---
EXAM: XY CHEST XRAY 1 VIEW Indication: confirm location of newly placed ng tube Technique: Single frontal view of the chest was obtained Comparison: XY CHEST XRAY 1 VIEW on DOS: 02/25/25, XY CHEST XRAY 1 VIEW on DOS: 02/25/25, XY CHEST XRAY 1 VIEW on DOS: 02/24/25, XY CHEST XRAY 1 VIEW on DOS: 02/24/25, XY CHEST XRAY 1 VIEW on DOS: 02/21/25 FINDINGS: Lines and Tubes: Malpositioned enteric tube with tip coiled in the mid esophagus. Lungs: No focal consolidation. Pleura: No effusion. No pneumothorax. Cardiomediastinal contours: Unremarkable Bones: No acute osseous abnormality. IMPRESSION: Malpositioned enteric tube with tip coiled in the mid esophagus. Recommend repositioning.
--- NOTE | 2025-02-27 15:25 | DVH ---
CHEST RADIOGRAPH Indication: ng tube adjusted. please confirm placement Technique: Single frontal view of the chest was obtained Comparison: XY CHEST XRAY 1 VIEW on DOS: 02/27/25, XY CHEST XRAY 1 VIEW on DOS: 02/25/25, XY CHEST XRAY 1 VIEW on DOS: 02/25/25, XY CHEST XRAY 1 VIEW on DOS: 02/24/25, XY CHEST XRAY 1 VIEW on DOS: 02/24/25, XY CHEST XRAY 1 VIEW on DOS: 02/27/25 FINDINGS: Lines and Tubes: Malpositioned enteric tube with tip coiled in the mid esophagus. Lungs: No focal consolidation. Pleura: No effusion. No pneumothorax. Cardiomediastinal contours: Unremarkable Bones: No acute osseous abnormality. IMPRESSION: Malpositioned enteric tube with tip coiled in the mid esophagus. Recommend repositioning.
[2025-02-27] MEDS ORDERED: VANCOMYCIN 1.5GM/300ML 300 ML IV SCH (16:00)
--- NOTE | 2025-02-27 17:40 | DVH ---
CHEST RADIOGRAPH Indication: ng tube replaced. Determine appropriate placement Technique: Single frontal view of the chest was obtained Comparison: 02/27/2025 FINDINGS: The nasogastric tube projects towards the stomach. Tip appears to project near the gastric fundal region. The cardiac silhouette is unremarkable. The lungs demonstrate bilateral patchy airspace opacities, le [id number], most pronounced in the left lower lobe. The pulmonary vasculature is prominent . Small left pleural effusion. There is no pneumothorax. IMPRESSION: 1. As above
--- NOTE | 2025-02-27 17:57 | DVHPNRES ---
Progress Note Date Seen: Feb 27, 2025 Resident Creating Document: JUAN CRUZ RESIDENT Has the PT tested + for MRSA If YES, has PT been informed?: No Medical Necessity Reason Pt with a Central, PICC or Fol: No Subjective Review of Systems 49-year-old male with PMHx of Huntingtons disease, Hepatitis C, GERD, mood disorder, and long incarceration history (released 2 months ago after 25 years), presented from home with 3 days of progressive weakness, altered mental status, poor oral intake, cough, foul-smelling urine, and constipation. Family states he has been off and was found hypotensive with SBP in the 70s by EMS. PMHx: GERD Hepatitis C Huntingtons disease Adjustment disorder Mood disorder History of MRSA Surgical History: Mandibular fracture (prior) Cystoscopy & ureteroscopy Family History: Unknown Social History: Formerly incarcerated 25 years; now living with family. Smoker, alcohol, drug use unknown Medications: Amantadine, benztropine, mirtazapine, lorazepam, risperidone, pantoprazole, propranolol, ferrous sulfate, lactulose, tamsulosin, deuterabenazine, naloxone nasal spray 02/20/2025: Na 165, continue D5W at 150cc/h, urology consulted, CT scan ordered: showed bladder thickening, possible lung consolidations and large volume stool, bladder scan less than 200 no need of cystostomy for now but if distention suprapubic puncture will be performed, mild fevers, continue vanco/ meropenem, patient was in low dose levophed since midnight 02/21/2025: levophed off, Na 157, D5W at 75cc/h, haloperidol jj, bladder scan less than 200cc today as well, case discussed with the brother today, he stated his mental status is getting to baseline (patient has advance dementia), downgrade to telemetry 02/23/2025: Patient's status discussed with the patient's brother POMeka, the option of PEG tube was discussed, he agrees, GI consult is placed 02/24/2025: NG tube placed, tube feedings started, tylenol PO started 02/25/2025: NG tube was misplaced, feedings were not started, today after multiple attempts, NG tube placed, pending start feedings, case discussed with Dr Enio GALLO, very high risk of intubation and complications if PEG tube will be placed, family meeting is planning for tomorrow to redefine goals of care (Today i talked with his uncle Quirino, which is his POA), K IV given 02/26/2025: Family meeting: Quirino his uncle RK and his were present, according to him, patient went to his place on December 20 and he was able to walk 20 feet, eat puree diet and said few phrases, but 2 weeks back he started to declined, not able to eat, be more drowsy and not able to walk, patient was also in many medications (mood and movement disorder meds), the possibility of intubation after PEG tube was addressed, so for now no PEG tube, also the option of home hospice was talked, they want more information, we tried at bedside feeding with apple sauce, he was eager to eat but not swallow entirely, we will continue tube feedings and slowly feeding with spoon, also deutetrabenazine will be started. 02/27/2025: deutetrabenazine was not able to get, other options will be tried, benztropine is started Objective vital signs Vital Sign Date Time Temp Pulse Resp B/P (MAP) Pulse Ox O2 Delivery O2 Flow Rate FiO2 02/27/25 17:48 99.0 115 22 98/66 (77) 95 99.0 02/27/25 08:00 Nasal Cannula* 2 28 Total Intake and Output 02/26/25 02/26/25 02/27/25 15:00 23:00 07:00 Intake Total 470 ml 0 ml Output Total 0 ml 0 ml Balance 470 ml 0 ml medications Current Medications Medications Dose Ordered Sig/Jj Route Start Time Stop Time Status Last Admin Dose Admin Vancomycin HCl 0 ml @ 0 mls/hr UD IV 02/19/25 15:30 Lorazepam 1 mg Q5MINP PRN IV 02/19/25 15:30 02/24/25 15:25 1 MG Pantoprazole Sodium 40 mg DAILY IV 02/20/25 10:00 02/26/25 09:12 40 MG Diagnostic Test (Pha) 1 strip Q6HR 02/19/25 18:00 02/27/25 00:00 1 STRIP Dextrose 50 ml UD PRN IV 02/19/25 16:45 Enoxaparin Sodium 40 mg DAILY SC 02/20/25 10:00 02/26/25 09:12 40 MG Dextrose 1,000 ml @ 75 mls/hr [id number] IV 02/21/25 07:00 02/25/25 17:12 75 MLS/HR Haloperidol Lactate 5 mg Q8HR IM 02/21/25 14:00 02/27/25 13:15 5 MG Enteral Nutritional Formula 1,000 ml 30ML/HR GT 02/24/25 14:45 02/25/25 20:16 1,000 ML Acetaminophen 325 mg Q6HP PRN GT 02/24/25 18:00 02/26/25 23:17 325 MG Meropenem 50 ml @ 17 mls/hr Q8HR IV 02/26/25 06:00 02/27/25 13:23 17 MLS/HR Patient Own Medication 1 BID PO 02/26/25 22:00 Benztropine Mesylate 1 mg DAILY PO 02/27/25 10:00 Vancomycin HCl 300 ml @ 200 mls/hr Q12H IV 02/27/25 16:00 UNV Vancomycin HCl 200 ml @ 200 mls/hr Q8H IV 02/27/25 12:00 02/27/25 11:18 200 MLS/HR Examination Cachectic-appearing patient with poor dentition and marked muscle wasting. Patient exhibits continuous choreiform movements involving the face and upper extremities. Neurological exam notable for spastic rigidity, hyperreflexia, and multiple fixed contractures, particularly in the lower limbs. Limited voluntary movement and reduced verbal output. Lungs clear to auscultation bilaterally. Cardiovascular exam with regular rate and rhythm, no murmurs. Abdomen soft, non-tender, non-distended. laboratory and microbiology Laboratory Tests 02/27/25 02:52 Test 02/27/25 02:52 Range/Units Serum Glucose 106 74-106 mg/dL Microbiology Date/Time Source Procedure Growth Status 02/19/25 20:07 Nose MRSA Screen - Final Complete 02/19/25 13:26 Blood Blood Culture - Final NO GROWTH AFTER 5 DAYS OF INCUBATION. Complete Problem List/Assessment/Plan Problem List/Assessment/Plan #Acute metabolic encephalopathy likely multifactorial (sepsis, Huntingtons, chronic illness, electrolyte derangement) #Severe Hypernatremia (Na 175), likely chronic #Failure to thrive #Severe protein/caloric malnutrition #Severe dehydration due to poor oral intake #[place] disease, late stage #Sepsis #Complicated UTI #Possible aspiration pneumonia #Possible pneumonia gram +/ gram- . #Constipation #GERD #Hypokalemia #Ho/Hepatitis C #Urethral stricture disease #Possible false urethral passage #Urinary incontinence NG tube, tube feedings Telemetry status Slow correction with D5W 75cc/h Monitor Na daily, avoid rapid shifts Continue supportive care CT head: ischemic chronic changes, global atrophy Haloperidol JJ Continue on IV fluids, vancomycin, meropenem CT scan ordered: showed bladder thickening, possible lung consolidations and large volume stool If bladder is distended, please request Interventional Radiology to place a temporary suprapubic catheter. When patient was metabolically stable, we will consider performing a diagnostic cystoscopy and possible DVIU Tylenol PO JJ Benztropine 02/26/2025: Family meeting: Quirino his uncle RK and his were present, according to him, patient went to his place on December 20 and he was able to walk 20 feet, eat puree diet and said few phrases, but 2 weeks back he started to declined, not able to eat, be more drowsy and not able to walk, patient was also in many medications (mood and movement disorder meds), the possibility of intubation after PEG tube was addressed, so for now no PEG tube, also the option of home hospice was talked, they want more information, we tried at bedside feeding with apple sauce, he was eager to eat but not swallow entirely, we will continue tube feedings and slowly feeding with spoon, also deutetrabenazine will be started. 02/27/2025: deutetrabenazine was not able to get, other options will be tried, benztropine is started Code status: chemical code: no compressions, no defibrillation, no intubation, discussed with his uncle for 22 min Case discussed with Dr Lee Plan discussed with: Patient, Other (rn) My Orders My Orders Orders - JUAN CRUZ RESIDENT Procedure Category Date Status Time Benztropine Tablet PHA 02/27/25 In Process (Cogentin Tablet) 10:00 Creatinine LAB 02/28/25 Verified 04:00 Vancomycin,Trough LAB 02/28/25 Verified 03:00 Vancomycin 1gm/200ml PHA 02/27/25 In Process Pm 12:00 Vancomycin Per ELIER 02/27/25 In Process Pharmacy Protoc 12:00 Chest Xray 1 View XY 02/27/25 Resulted 13:32 Chest Xray 1 View XY 02/27/25 Resulted 14:49 Chest Xray 1 View XY 02/27/25 Resulted 17:06 Dietary Evaluation Review Comments: 1. TPN if NPO>5 days 2. Damon 1 pk BID 3. Advance diet as medically feasible Expected Outcomes/Goals: To meet >75% estimated needs Fu 2-3 days Date of Service: Feb 27, 2025 Billing Provider: VY LEE MD Common Visit Codes: [id number] INP/OBS CARE(HIGH) JUAN CRUZ RESIDENT Feb 27, 2025 17:57 VY LEE MD Mar 04, 2025 20:50
--- NOTE | 2025-02-27 21:04 | DVHPN2 ---
Progress Note - Dictate Date Seen: Feb 27, 2025 Has the PT tested + for MRSA If YES, has PT been informed?: No Medical Necessity Reason Pt with a Central, PICC or Fol: No Subjective Patient is arousable but lethargic Continued poor oral intake NG tube was Displaced today and required to be reinserted x2 Last attempt and post placement x-ray shows the tip in the gastric fundus vital signs Vital Sign Date Time Temp Pulse Resp B/P (MAP) Pulse Ox O2 Delivery O2 Flow Rate FiO2 02/27/25 17:48 99.0 115 22 98/66 (77) 95 99.0 02/27/25 08:00 Nasal Cannula* 2 28 Total Intake and Output 02/26/25 02/26/25 02/27/25 15:00 23:00 07:00 Intake Total 470 ml 0 ml Output Total 0 ml 0 ml Balance 470 ml 0 ml medications Current Medications Medications Dose Ordered Sig/Jj Route Start Time Stop Time Status Last Admin Dose Admin Vancomycin HCl 0 ml @ 0 mls/hr UD IV 02/19/25 15:30 Lorazepam 1 mg Q5MINP PRN IV 02/19/25 15:30 02/24/25 15:25 1 MG Pantoprazole Sodium 40 mg DAILY IV 02/20/25 10:00 02/26/25 09:12 40 MG Diagnostic Test (Pha) 1 strip Q6HR 02/19/25 18:00 02/27/25 00:00 1 STRIP Dextrose 50 ml UD PRN IV 02/19/25 16:45 Enoxaparin Sodium 40 mg DAILY SC 02/20/25 10:00 02/26/25 09:12 40 MG Dextrose 1,000 ml @ 75 mls/hr [id number] IV 02/21/25 07:00 02/25/25 17:12 75 MLS/HR Haloperidol Lactate 5 mg Q8HR IM 02/21/25 14:00 02/27/25 13:15 5 MG Enteral Nutritional Formula 1,000 ml 30ML/HR GT 02/24/25 14:45 02/25/25 20:16 1,000 ML Acetaminophen 325 mg Q6HP PRN GT 02/24/25 18:00 02/26/25 23:17 325 MG Meropenem 50 ml @ 17 mls/hr Q8HR IV 02/26/25 06:00 02/27/25 13:23 17 MLS/HR Patient Own Medication 1 BID PO 02/26/25 22:00 Benztropine Mesylate 1 mg DAILY PO 02/27/25 10:00 Vancomycin HCl 300 ml @ 200 mls/hr Q12H IV 02/27/25 16:00 UNV Vancomycin HCl 200 ml @ 200 mls/hr Q8H IV 02/27/25 12:00 02/27/25 11:18 200 MLS/HR objective Patient is having tremors , Choreiform movements as well as in no distress unable to communicate HEENT examination no pallor Lungs clear Cardiovascular unremarkable Abdomen is soft no distention no rigidity no masses laboratory and microbiology Laboratory Tests 02/27/25 02:52 Test 02/27/25 02:52 Range/Units Serum Glucose 106 74-106 mg/dL Problems(with codes): (1) Milwaukee's disease (2) Hypernatremia (3) Generalized weakness (4) Metabolic alkalosis (5) Dehydration Prognosis PLAN Resume NG tube feedings Keep head end elevated to 45 at all times Family meeting and decision in progress Patient at this time is not a candidate for MAC sedation or placement of a endoscopic PEG tube Dietary Evaluation Review Comments: 1. TPN if NPO>5 days 2. Damon 1 pk BID 3. Advance diet as medically feasible Expected Outcomes/Goals: To meet >75% estimated needs Fu 2-3 days Plan discussed with: Other (Nurse Ty and Dr Smith) VEENA MCKEON MD Feb 27, 2025 21:04
[2025-02-28] VITALS (8 sets, daily range): BP systolic 93–106; BP diastolic 40–65; PULSE 63–94; RESP 14–20; TEMP 97.3–98.8; O2SAT 95–97
[2025-02-28 02:57] LABS: Basophils # (auto) 0 10 ^3/uL (0-0.2); Basophils % (auto) 0.7 % (0.0-2.0); Eosinophils # (auto) 0.1 10 ^3/uL (0-0.8); Eosinophils % (auto) 2.3 % (0.0-7.0); Hematocrit 34.4 % (41.0-53.0); Hemoglobin 11.5 g/dL (13.5-17.5); Lymphocytes % (auto) 17.6 % (10.0-50.0); Mean Corpuscular Hgb Conc. 33.5 g/dL (32.0-36.0); Mean Corpuscular Volume 89.5 fL (80.0-100.0); Monocytes # (auto) 0.5 10 ^3/uL (0-1.3); Monocytes % (auto) 8.2 % (0.0-12.0); Neutrophils # (auto) 4.2 10 ^3/uL (1.6-8.6); Neutrophils % (auto) 71.2 % (37.0-80.0); Nucleated Red Blood Cells % 0.1 %; Platelet Count (auto) 244 10^3/uL (140-450); Red Blood Cells 3.85 10^6/uL (4.5-5.90); Red Cell Distribution Width 13.4 % (11.8-14.3); White Blood Cell 5.9 10^3/uL (4.4-10.8)
[2025-02-28 03:09] LABS: Potassium 3.7 mmol/L (3.5-5.1); Sodium 142 mmol/L (136-145)
[2025-02-28 03:10] LABS: Anion Gap 10 (5-15); Carbon Dioxide 23 mmol/L (20-31); Chloride 109 mmol/L (98-107)
[2025-02-28 03:14] LABS: Calcium 8.4 mg/dL (8.7-10.4)
[2025-02-28 03:15] LABS: Blood Urea Nitrogen 18 mg/dL (9-23); Glucose 99 mg/dL (74-106)
--- NOTE | 2025-02-28 13:09 | DVHPNRES ---
Progress Note Date Seen: Feb 28, 2025 Resident Creating Document: JUAN CRUZ RESIDENT Has the PT tested + for MRSA If YES, has PT been informed?: No Medical Necessity Reason Pt with a Central, PICC or Fol: No Subjective Review of Systems 49-year-old male with PMHx of Huntingtons disease, Hepatitis C, GERD, mood disorder, and long incarceration history (released 2 months ago after 25 years), presented from home with 3 days of progressive weakness, altered mental status, poor oral intake, cough, foul-smelling urine, and constipation. Family states he has been off and was found hypotensive with SBP in the 70s by EMS. PMHx: GERD Hepatitis C Huntingtons disease Adjustment disorder Mood disorder History of MRSA Surgical History: Mandibular fracture (prior) Cystoscopy & ureteroscopy Family History: Unknown Social History: Formerly incarcerated 25 years; now living with family. Smoker, alcohol, drug use unknown Medications: Amantadine, benztropine, mirtazapine, lorazepam, risperidone, pantoprazole, propranolol, ferrous sulfate, lactulose, tamsulosin, deuterabenazine, naloxone nasal spray 02/20/2025: Na 165, continue D5W at 150cc/h, urology consulted, CT scan ordered: showed bladder thickening, possible lung consolidations and large volume stool, bladder scan less than 200 no need of cystostomy for now but if distention suprapubic puncture will be performed, mild fevers, continue vanco/ meropenem, patient was in low dose levophed since midnight 02/21/2025: levophed off, Na 157, D5W at 75cc/h, haloperidol jj, bladder scan less than 200cc today as well, case discussed with the brother today, he stated his mental status is getting to baseline (patient has advance dementia), downgrade to telemetry 02/23/2025: Patient's status discussed with the patient's brother POMeka, the option of PEG tube was discussed, he agrees, GI consult is placed 02/24/2025: NG tube placed, tube feedings started, tylenol PO started 02/25/2025: NG tube was misplaced, feedings were not started, today after multiple attempts, NG tube placed, pending start feedings, case discussed with Dr Enio GALLO, very high risk of intubation and complications if PEG tube will be placed, family meeting is planning for tomorrow to redefine goals of care (Today i talked with his uncle Quirino, which is his POA), K IV given 02/26/2025: Family meeting: Quirino his uncle RK and his were present, according to him, patient went to his place on December 20 and he was able to walk 20 feet, eat puree diet and said few phrases, but 2 weeks back he started to declined, not able to eat, be more drowsy and not able to walk, patient was also in many medications (mood and movement disorder meds), the possibility of intubation after PEG tube was addressed, so for now no PEG tube, also the option of home hospice was talked, they want more information, we tried at bedside feeding with apple sauce, he was eager to eat but not swallow entirely, we will continue tube feedings and slowly feeding with spoon, also deutetrabenazine will be started. 02/27/2025: deutetrabenazine was not able to get, other options will be tried, benztropine is started 02/28/2025: speech therapist evaluated the case, stated patient should be NPO, case was discussed with Dr Cole, IR, he stated he will try PEG tube insertion on monday, pending to get consent from family, they didnt waste picker the phone today, D5W and AB were DC today Objective vital signs Vital Sign Date Time Temp Pulse Resp B/P (MAP) Pulse Ox O2 Delivery O2 Flow Rate FiO2 02/28/25 08:00 Nasal Cannula* 2 28 02/28/25 08:00 63 02/28/25 05:00 97.5 20 93/62 (72) 97 97.5 Total Intake and Output 02/27/25 02/27/25 02/28/25 15:00 23:00 07:00 Intake Total 1200 ml 500 ml 0 ml Output Total 0 ml Balance 1200 ml 500 ml 0 ml medications Current Medications Medications Dose Ordered Sig/Jj Route Start Time Stop Time Status Last Admin Dose Admin Lorazepam 1 mg Q5MINP PRN IV 02/19/25 15:30 02/24/25 15:25 1 MG Pantoprazole Sodium 40 mg DAILY IV 02/20/25 10:00 02/28/25 08:58 40 MG Diagnostic Test (Pha) 1 strip Q6HR 02/19/25 18:00 02/28/25 11:48 1 STRIP Dextrose 50 ml UD PRN IV 02/19/25 16:45 Enoxaparin Sodium 40 mg DAILY SC 02/20/25 10:00 02/28/25 08:59 40 MG Haloperidol Lactate 5 mg Q8HR IM 02/21/25 14:00 02/28/25 05:58 5 MG Enteral Nutritional Formula 1,000 ml 30ML/HR GT 02/24/25 14:45 02/25/25 20:16 1,000 ML Acetaminophen 325 mg Q6HP PRN GT 02/24/25 18:00 02/26/25 23:17 325 MG Patient Own Medication 1 BID PO 02/26/25 22:00 Benztropine Mesylate 1 mg DAILY PO 02/27/25 10:00 02/28/25 08:59 1 MG Vancomycin HCl 300 ml @ 200 mls/hr Q12H IV 02/27/25 16:00 UNV Lactulose 15 ml DAILY PO 02/28/25 11:00 Examination Cachectic-appearing patient with poor dentition and marked muscle wasting. Patient exhibits continuous choreiform movements involving the face and upper extremities. Neurological exam notable for spastic rigidity, hyperreflexia, and multiple fixed contractures, particularly in the lower limbs. Limited voluntary movement and reduced verbal output. Lungs clear to auscultation bilaterally. Cardiovascular exam with regular rate and rhythm, no murmurs. Abdomen soft, non-tender, non-distended. laboratory and microbiology Laboratory Tests 02/28/25 02:50 Test 02/28/25 02:50 Range/Units Serum Glucose 99 74-106 mg/dL Microbiology Date/Time Source Procedure Growth Status 02/19/25 20:07 Nose MRSA Screen - Final Complete 02/19/25 13:26 Blood Blood Culture - Final NO GROWTH AFTER 5 DAYS OF INCUBATION. Complete Problem List/Assessment/Plan Problem List/Assessment/Plan #Acute metabolic encephalopathy likely multifactorial (sepsis, Huntingtons, chronic illness, electrolyte derangement) #Severe Hypernatremia (Na 175), likely chronic #Failure to thrive #Severe protein/caloric malnutrition #Severe dehydration due to poor oral intake #Adams disease, late stage #Sepsis #Complicated UTI #Possible aspiration pneumonia #Possible pneumonia gram +/ gram- . #Constipation #GERD #Hypokalemia #Ho/Hepatitis C #Urethral stricture disease #Possible false urethral passage #Urinary incontinence NG tube, tube feedings Telemetry status Continue supportive care CT head: ischemic chronic changes, global atrophy Haloperidol JJ CT scan ordered: showed bladder thickening, possible lung consolidations and large volume stool If bladder is distended, please request Interventional Radiology to place a temporary suprapubic catheter. When patient was metabolically stable, we will consider performing a diagnostic cystoscopy and possible DVIU Tylenol PO JJ Benztropine 02/28/2025: speech therapist evaluated the case, stated patient should be NPO, case was discussed with Dr Cole, IR, he stated he will try PEG tube insertion on monday, pending to get consent from family, they didnt waste picker the phone today, D5W and AB were DC today Code status: chemical code: no compressions, no defibrillation, no intubation, discussed with his uncle for 22 min Case discussed with Dr Simon Plan discussed with: Patient, Other My Orders My Orders Orders - JUAN CRUZ RESIDENT Procedure Category Date Status Time Chest Xray 1 View XY 02/27/25 Resulted 13:32 Chest Xray 1 View XY 02/27/25 Resulted 14:49 Chest Xray 1 View XY 02/27/25 Resulted 17:06 Discontinue Tele ELIER 02/28/25 In Process 09:[address] 02/28/25 Logged 10:51 Lactulose Oral PHA 02/28/25 In Process 11:00 * Radiologist Consult CONS 02/28/25 Transmitted 13:00 Transfer Orders XFER 02/28/25 Transmitted 13:03 Dietary Evaluation Review Comments: 1. TPN if NPO>5 days 2. Damon 1 pk BID 3. Advance diet as medically feasible Expected Outcomes/Goals: To meet >75% estimated needs Fu 2-3 days Date of Service: Feb 28, 2025 Billing Provider: VY SIMNO MD Common Visit Codes: [id number] INP/OBS CARE(HIGH) JUAN CRUZ RESIDENT Feb 28, 2025 13:09 VY SIMON MD Mar 04, 2025 20:54
[2025-02-28] MEDS: LACTULOSE 20Gm/30ML SOLN PO SCH (13:55)
--- NOTE | 2025-02-28 17:00 | DVHPN2 ---
Progress Note - Dictate Date Seen: Feb 28, 2025 Has the PT tested + for MRSA If YES, has PT been informed?: No Medical Necessity Reason Pt with a Central, PICC or Fol: No Subjective Patient is more agitated today Failed swallow eval today as he is pulling food in his throat, speech therapist recommended keep patient NPO Patient is tolerating NG tube feedings and medications via NG tube vital signs Vital Sign Date Time Temp Pulse Resp B/P (MAP) Pulse Ox O2 Delivery O2 Flow Rate FiO2 02/28/25 16:40 98.5 93 16 106/40 (62) 96 98.5 02/28/25 08:00 Nasal Cannula* 2 28 Total Intake and Output 02/27/25 02/27/25 02/28/25 15:00 23:00 07:00 Intake Total 1200 ml 500 ml 0 ml Output Total 0 ml Balance 1200 ml 500 ml 0 ml medications Current Medications Medications Dose Ordered Sig/Jj Route Start Time Stop Time Status Last Admin Dose Admin Lorazepam 1 mg Q5MINP PRN IV 02/19/25 15:30 02/24/25 15:25 1 MG Pantoprazole Sodium 40 mg DAILY IV 02/20/25 10:00 02/28/25 08:58 40 MG Diagnostic Test (Pha) 1 strip Q6HR 02/19/25 18:00 02/28/25 11:48 1 STRIP Dextrose 50 ml UD PRN IV 02/19/25 16:45 Enoxaparin Sodium 40 mg DAILY SC 02/20/25 10:00 02/28/25 08:59 40 MG Haloperidol Lactate 5 mg Q8HR IM 02/21/25 14:00 02/28/25 13:55 5 MG Enteral Nutritional Formula 1,000 ml 30ML/HR GT 02/24/25 14:45 02/25/25 20:16 1,000 ML Acetaminophen 325 mg Q6HP PRN GT 02/24/25 18:00 02/26/25 23:17 325 MG Patient Own Medication 1 BID PO 02/26/25 22:00 Benztropine Mesylate 1 mg DAILY PO 02/27/25 10:00 02/28/25 08:59 1 MG Vancomycin HCl 300 ml @ 200 mls/hr Q12H IV 02/27/25 16:00 UNV Lactulose 15 ml DAILY PO 02/28/25 11:00 02/28/25 13:55 15 ML objective Patient is having tremors , Choreiform movements as well as in no distress unable to communicate HEENT examination no pallor Lungs clear Cardiovascular unremarkable Abdomen is soft no distention no rigidity no masses laboratory and microbiology Laboratory Tests 02/28/25 02:50 Test 02/28/25 02:50 Range/Units Serum Glucose 99 74-106 mg/dL Problems(with codes): (1) Lyon's disease (2) Hypernatremia (3) Generalized weakness (4) Metabolic alkalosis (5) Dehydration Prognosis Plan We will get IR referral to evaluate patient next week for possible IR placed PEG tube Other option would be discharge patient on hospice with an NG-tube but I think the family is not agreeable to that at this time Dietary Evaluation Review Comments: 1. TPN if NPO>5 days 2. Damon 1 pk BID 3. Advance diet as medically feasible Expected Outcomes/Goals: To meet >75% estimated needs Fu 2-3 days Plan discussed with: Patient, Other (Nurse Martin) VEENA MCKEON MD Feb 28, 2025 17:00
[2025-02-28] MEDS: ACCU-CHEK COMFORT CURVE STRIP VI SCH (22:00)
[2025-03-01] VITALS (7 sets, daily range): BP systolic 95–110; BP diastolic 55–83; PULSE 65–93; RESP 16–18; TEMP 97.7–99.5; O2SAT 93–100
[2025-03-01 06:02] LABS: Basophils # (auto) 0 10 ^3/uL (0-0.2); Basophils % (auto) 0.9 % (0.0-2.0); Eosinophils # (auto) 0.1 10 ^3/uL (0-0.8); Eosinophils % (auto) 2.7 % (0.0-7.0); Hematocrit 35.8 % (41.0-53.0); Hemoglobin 11.9 g/dL (13.5-17.5); Lymphocytes # (auto) 0.9 10 ^3/uL (0.4-5.4); Lymphocytes % (auto) 18.1 % (10.0-50.0); Mean Corpuscular Hgb Conc. 33.3 g/dL (32.0-36.0); Mean Corpuscular Volume 90.2 fL (80.0-100.0); Monocytes # (auto) 0.5 10 ^3/uL (0-1.3); Monocytes % (auto) 8.9 % (0.0-12.0); Neutrophils # (auto) 3.6 10 ^3/uL (1.6-8.6); Neutrophils % (auto) 69.4 % (37.0-80.0); Nucleated Red Blood Cells % 0.2 %; Platelet Count (auto) 246 10^3/uL (140-450); Red Blood Cells 3.97 10^6/uL (4.5-5.90); Red Cell Distribution Width 13.6 % (11.8-14.3); White Blood Cell 5.2 10^3/uL (4.4-10.8)
[2025-03-01 06:13] LABS: Calcium 9.3 mg/dL (8.7-10.4); Potassium 3.9 mmol/L (3.5-5.1); Sodium 145 mmol/L (136-145)
[2025-03-01 06:14] LABS: Anion Gap 8 (5-15); Carbon Dioxide 27 mmol/L (20-31)
[2025-03-01 06:19] LABS: BUN/Creatinine Ratio 37.5 (10.0-20.0); Blood Urea Nitrogen 21 mg/dL (9-23); Glucose 97 mg/dL (74-106)
[2025-03-01 06:29] LABS: Chloride 110 mmol/L (98-107)
[2025-03-01] MEDS ORDERED: ACETAMINOPHEN 650 mg PER 20.3 mL UD NG PRN (09:30)
[2025-03-01] MEDS: LACTULOSE 20Gm/30ML SOLN NG SCH (10:50)
[2025-03-01] MEDS: BENZTROPINE MESY 0.5 MG TAB NG SCH (10:51)
--- NOTE | 2025-03-01 11:46 | DVHPNRES ---
Progress Note Date Seen: Mar 01, 2025 Resident Creating Document: JUAN CRUZ RESIDENT Has the PT tested + for MRSA If YES, has PT been informed?: No Medical Necessity Reason Pt with a Central, PICC or Fol: No Subjective Review of Systems 49-year-old male with PMHx of Huntingtons disease, Hepatitis C, GERD, mood disorder, and long incarceration history (released 2 months ago after 25 years), presented from home with 3 days of progressive weakness, altered mental status, poor oral intake, cough, foul-smelling urine, and constipation. Family states he has been off and was found hypotensive with SBP in the 70s by EMS. PMHx: GERD Hepatitis C Huntingtons disease Adjustment disorder Mood disorder History of MRSA Surgical History: Mandibular fracture (prior) Cystoscopy & ureteroscopy Family History: Unknown Social History: Formerly incarcerated 25 years; now living with family. Smoker, alcohol, drug use unknown Medications: Amantadine, benztropine, mirtazapine, lorazepam, risperidone, pantoprazole, propranolol, ferrous sulfate, lactulose, tamsulosin, deuterabenazine, naloxone nasal spray 02/20/2025: Na 165, continue D5W at 150cc/h, urology consulted, CT scan ordered: showed bladder thickening, possible lung consolidations and large volume stool, bladder scan less than 200 no need of cystostomy for now but if distention suprapubic puncture will be performed, mild fevers, continue vanco/ meropenem, patient was in low dose levophed since midnight 02/21/2025: levophed off, Na 157, D5W at 75cc/h, haloperidol jj, bladder scan less than 200cc today as well, case discussed with the brother today, he stated his mental status is getting to baseline (patient has advance dementia), downgrade to telemetry 02/23/2025: Patient's status discussed with the patient's brother POMeka, the option of PEG tube was discussed, he agrees, GI consult is placed 02/24/2025: NG tube placed, tube feedings started, tylenol PO started 02/25/2025: NG tube was misplaced, feedings were not started, today after multiple attempts, NG tube placed, pending start feedings, case discussed with Dr Enio GALLO, very high risk of intubation and complications if PEG tube will be placed, family meeting is planning for tomorrow to redefine goals of care (Today i talked with his uncle Quirino, which is his POA), K IV given 02/26/2025: Family meeting: Quirino his uncle RK and his were present, according to him, patient went to his place on December 20 and he was able to walk 20 feet, eat puree diet and said few phrases, but 2 weeks back he started to declined, not able to eat, be more drowsy and not able to walk, patient was also in many medications (mood and movement disorder meds), the possibility of intubation after PEG tube was addressed, so for now no PEG tube, also the option of home hospice was talked, they want more information, we tried at bedside feeding with apple sauce, he was eager to eat but not swallow entirely, we will continue tube feedings and slowly feeding with spoon, also deutetrabenazine will be started. 02/27/2025: deutetrabenazine was not able to get, other options will be tried, benztropine is started 02/28/2025: speech therapist evaluated the case, stated patient should be NPO, case was discussed with Dr Cole, IR, he stated he will try PEG tube insertion on monday, pending to get consent from family, they didnt pickling solution maker the phone today, D5W and AB were DC today 03/01/2025: I spoke with Quirino, he agreed on procedure, he will come at bedside to sign it, we will continue tube feedings Objective vital signs Vital Sign Date Time Temp Pulse Resp B/P (MAP) Pulse Ox O2 Delivery O2 Flow Rate FiO2 03/01/25 08:59 97.9 74 17 95/55 (68) 95 97.9 02/28/25 20:00 Nasal Cannula* 2 28 Total Intake and Output 02/28/25 02/28/25 03/01/25 15:00 23:00 07:00 Intake Total 50 ml 360 ml 0 ml Output Total 0 ml Balance 50 ml 360 ml 0 ml medications Current Medications Medications Dose Ordered Sig/Jj Route Start Time Stop Time Status Last Admin Dose Admin Lorazepam 1 mg Q5MINP PRN IV 02/19/25 15:30 02/24/25 15:25 1 MG Pantoprazole Sodium 40 mg DAILY IV 02/20/25 10:00 02/28/25 08:58 40 MG Dextrose 50 ml UD PRN IV 02/19/25 16:45 Enoxaparin Sodium 40 mg DAILY SC 02/20/25 10:00 02/28/25 08:59 40 MG Haloperidol Lactate 5 mg Q8HR IM 02/21/25 14:00 03/01/25 05:59 5 MG Enteral Nutritional Formula 1,000 ml 30ML/HR GT 02/24/25 14:45 02/25/25 20:16 1,000 ML Patient Own Medication 1 BID PO 02/26/25 22:00 Vancomycin HCl 300 ml @ 200 mls/hr Q12H IV 02/27/25 16:00 UNV Diagnostic Test (Pha) 1 strip Q12HR 02/28/25 22:00 02/28/25 22:00 1 STRIP Acetaminophen 325 mg Q6HP PRN NG 03/01/25 09:30 Benztropine Mesylate 1 mg DAILY NG 03/01/25 10:00 Lactulose 15 ml DAILY NG 03/01/25 10:00 Examination Cachectic-appearing patient with poor dentition and marked muscle wasting. Patient exhibits continuous choreiform movements involving the face and upper extremities. Neurological exam notable for spastic rigidity, hyperreflexia, and multiple fixed contractures, particularly in the lower limbs. Limited voluntary movement and reduced verbal output. Lungs clear to auscultation bilaterally. Cardiovascular exam with regular rate and rhythm, no murmurs. Abdomen soft, non-tender, non-distended. laboratory and microbiology Laboratory Tests 03/01/25 04:37 Test 03/01/25 04:37 Range/Units Serum Glucose 97 74-106 mg/dL Microbiology Date/Time Source Procedure Growth Status 02/19/25 20:07 Nose MRSA Screen - Final Complete 02/19/25 13:26 Blood Blood Culture - Final NO GROWTH AFTER 5 DAYS OF INCUBATION. Complete Problem List/Assessment/Plan Problem List/Assessment/Plan #Acute metabolic encephalopathy likely multifactorial (sepsis, Huntingtons, chronic illness, electrolyte derangement) #Severe Hypernatremia (Na 175), likely chronic #Failure to thrive #Severe protein/caloric malnutrition #Severe dehydration due to poor oral intake #[place] disease, late stage #Sepsis #Complicated UTI #Possible aspiration pneumonia #Possible pneumonia gram +/ gram- . #Constipation #GERD #Hypokalemia #Ho/Hepatitis C #Urethral stricture disease #Possible false urethral passage #Urinary incontinence NG tube, tube feedings Telemetry status Continue supportive care CT head: ischemic chronic changes, global atrophy Haloperidol JJ CT scan ordered: showed bladder thickening, possible lung consolidations and large volume stool If bladder is distended, please request Interventional Radiology to place a temporary suprapubic catheter. When patient was metabolically stable, we will consider performing a diagnostic cystoscopy and possible DVIU Tylenol PO JJ Benztropine 02/28/2025: speech therapist evaluated the case, stated patient should be NPO, case was discussed with Dr Cole, IR, he stated he will try PEG tube insertion on monday, pending to get consent from family, they didnt pickling solution maker the phone today, D5W and AB were DC today 03/01/2025: I spoke with Quirino, he agreed on procedure, he will come at bedside to sign it, we will continue tube feedings Code status: chemical code: no compressions, no defibrillation, no intubation, discussed with his uncle for 22 min Case discussed with Dr Simon Plan discussed with: Patient, Other My Orders My Orders Orders - JUAN CRUZ RESIDENT Procedure Category Date Status Time * Radiologist Consult CONS 02/28/25 Transmitted 13:00 Transfer Orders XFER 02/28/25 Transmitted 13:03 Glucose Blood PHA 02/28/25 In Process (Accu-Chek Comfort 22:00 Acetaminophen PHA 03/01/25 In Process Solution Oral 09:30 Benztropine Tablet PHA 03/01/25 In Process (Cogentin Tablet) 10:00 Lactulose Oral PHA 03/01/25 In Process 10:00 Dietary Evaluation Review Comments: 1. TPN if NPO>5 days 2. Damon 1 pk BID 3. Advance diet as medically feasible Expected Outcomes/Goals: To meet >75% estimated needs Fu 2-3 days Date of Service: Mar 01, 2025 Billing Provider: VY SIMON MD Common Visit Codes: [id number] INP/OBS CARE(HIGH) JUAN CRUZ RESIDENT Mar 01, 2025 11:46 VY SIMON MD Mar 04, 2025 21:10
[2025-03-01] MEDS: ACETAMINOPHEN 650 mg PER 20.3 mL UD NG SCH (17:35)
[2025-03-02] VITALS (7 sets, daily range): BP systolic 103–135; BP diastolic 56–75; PULSE 78–84; RESP 16–19; TEMP 98.1–99; O2SAT 95–100
[2025-03-02 04:42] LABS: Basophils # (auto) 0 10 ^3/uL (0-0.2); Basophils % (auto) 0.8 % (0.0-2.0); Eosinophils # (auto) 0.1 10 ^3/uL (0-0.8); Eosinophils % (auto) 3.1 % (0.0-7.0); Hemoglobin 12.7 g/dL (13.5-17.5); Lymphocytes # (auto) 1.1 10 ^3/uL (0.4-5.4); Lymphocytes % (auto) 23.9 % (10.0-50.0); Mean Corpuscular Hemoglobin 30.3 pg (28.0-32.0); Mean Corpuscular Hgb Conc. 33.3 g/dL (32.0-36.0); Mean Corpuscular Volume 90.8 fL (80.0-100.0); Monocytes # (auto) 0.4 10 ^3/uL (0-1.3); Neutrophils # (auto) 2.8 10 ^3/uL (1.6-8.6); Neutrophils % (auto) 62.2 % (37.0-80.0); Nucleated Red Blood Cells % 0.3 %; Platelet Count (auto) 280 10^3/uL (140-450); Red Blood Cells 4.18 10^6/uL (4.5-5.90); Red Cell Distribution Width 13.9 % (11.8-14.3); White Blood Cell 4.5 10^3/uL (4.4-10.8)
[2025-03-02 04:53] LABS: Potassium 3.8 mmol/L (3.5-5.1)
[2025-03-02 04:54] LABS: Anion Gap 9 (5-15); Calcium 9.5 mg/dL (8.7-10.4); Carbon Dioxide 28 mmol/L (20-31)
[2025-03-02 04:55] LABS: Chloride 110 mmol/L (98-107); Sodium 147 mmol/L (136-145)
[2025-03-02 04:59] LABS: BUN/Creatinine Ratio 40.6 (10.0-20.0)
[2025-03-02 05:00] LABS: Blood Urea Nitrogen 26 mg/dL (9-23); Glucose 107 mg/dL (74-106)
--- NOTE | 2025-03-02 15:16 | DVHPNRES ---
Progress Note Date Seen: Mar 02, 2025 Resident Creating Document: RAIMUNDO HALEY NESTOR Has the PT tested + for MRSA If YES, has PT been informed?: No Medical Necessity Reason Pt with a Central, PICC or Fol: No Subjective Review of Systems Patient seen and examined at the bedside. Patient is nonverbal and could not provide proper history. Patient reports: No new complaints Changes from previous H/P or p: No Changes Objective vital signs Vital Sign Date Time Temp Pulse Resp B/P (MAP) Pulse Ox O2 Delivery O2 Flow Rate FiO2 03/02/25 13:18 98.2 84 18 123/66 (85) 95 98.2 03/02/25 08:10 Nasal Cannula* 2 28 Total Intake and Output 03/01/25 03/01/25 03/02/25 15:00 23:00 07:00 Intake Total 200 ml 0 ml Balance 200 ml 0 ml medications Current Medications Medications Dose Ordered Sig/Jj Route Start Time Stop Time Status Last Admin Dose Admin Lorazepam 1 mg Q5MINP PRN IV 02/19/25 15:30 02/24/25 15:25 1 MG Pantoprazole Sodium 40 mg DAILY IV 02/20/25 10:00 03/02/25 10:32 40 MG Dextrose 50 ml UD PRN IV 02/19/25 16:45 Enoxaparin Sodium 40 mg DAILY SC 02/20/25 10:00 03/02/25 10:33 40 MG Haloperidol Lactate 5 mg Q8HR IM 02/21/25 14:00 03/02/25 15:08 5 MG Enteral Nutritional Formula 1,000 ml 30ML/HR GT 02/24/25 14:45 03/01/25 15:18 1,000 ML Patient Own Medication 1 BID PO 02/26/25 22:00 Vancomycin HCl 300 ml @ 200 mls/hr Q12H IV 02/27/25 16:00 UNV Diagnostic Test (Pha) 1 strip Q12HR 02/28/25 22:00 03/02/25 10:00 1 STRIP Benztropine Mesylate 1 mg DAILY NG 03/01/25 10:00 03/02/25 10:33 1 MG Lactulose 15 ml DAILY NG 03/01/25 10:00 03/02/25 10:32 15 ML Acetaminophen 325 mg Q6HR NG 03/01/25 18:00 03/02/25 05:56 325 MG Examination Cachectic-appearing patient with poor dentition and marked muscle wasting. Patient exhibits continuous choreiform movements involving the face and upper extremities. Neurological exam notable for spastic rigidity, hyperreflexia, and multiple fixed contractures, particularly in the lower limbs. Limited voluntary movement and reduced verbal output. Lungs clear to auscultation bilaterally. Cardiovascular exam with regular rate and rhythm, no murmurs. Abdomen soft, non-tender, non-distended. laboratory and microbiology Laboratory Tests 03/02/25 04:28 Test 03/02/25 04:28 Range/Units Serum Glucose 107 H 74-106 mg/dL Microbiology Date/Time Source Procedure Growth Status 02/19/25 20:07 Nose MRSA Screen - Final Complete 02/19/25 13:26 Blood Blood Culture - Final NO GROWTH AFTER 5 DAYS OF INCUBATION. Complete Labs and/or images reviewed: Labs reviewed by me, Image(s) reviewed by me Problem List/Assessment/Plan Problem List/Assessment/Plan #Acute metabolic encephalopathy likely multifactorial (sepsis, Huntingtons, chronic illness, electrolyte derangement) #Severe Hypernatremia (Na 175), likely chronic #Failure to thrive #Severe protein/caloric malnutrition #Severe dehydration due to poor oral intake #Dawn disease, late stage #Sepsis #Complicated UTI #Possible aspiration pneumonia #Possible pneumonia gram +/ gram- . #Constipation #GERD #Hypokalemia #Ho/Hepatitis C #Urethral stricture disease #Possible false urethral passage #Urinary incontinence NG tube, tube feedings Telemetry status Continue supportive care CT head: ischemic chronic changes, global atrophy Haloperidol JJ CT scan ordered: showed bladder thickening, possible lung consolidations and large volume stool If bladder is distended, please request Interventional Radiology to place a temporary suprapubic catheter. When patient was metabolically stable, we will consider performing a diagnostic cystoscopy and possible DVIU Tylenol PO JJ Benztropine 02/28/2025: speech therapist evaluated the case, stated patient should be NPO, case was discussed with WARD Hook, he stated he will try PEG tube insertion on monday, pending to get consent from family, they didnt greens picker the phone today, D5W and AB were DC today 03/01/2025: I spoke with Quirino, he agreed on procedure, he will come at bedside to sign it, we will continue tube feedings Patient is planned for PEG tube on Monday, tried multiple times to contact patient's family brother/uncle to get consent for PEG tube, but could not reach out. Code status: chemical code: no compressions, no defibrillation, no intubation, discussed with his uncle for 22 min Case discussed with Dr Lee Plan discussed with: Patient, Other (RN) Dietary Evaluation Review Comments: 1. TPN if NPO>5 days 2. Damon 1 pk BID 3. Advance diet as medically feasible Expected Outcomes/Goals: To meet >75% estimated needs Fu 2-3 days Date of Service: Mar 02, 2025 Billing Provider: VY LEE MD Common Visit Codes: [id number] INP/OBS CARE(HIGH) RAIMUNDO HALEY Mar 02, 2025 15:16 VY LEE MD Mar 04, 2025 21:18
[2025-03-03] VITALS (11 sets, daily range): BP systolic 102–190; BP diastolic 53–155; PULSE 80–118; RESP 15–24; TEMP 97.8–98.9; O2SAT 94–100
[2025-03-03 07:52] LABS: Potassium 4.4 mmol/L (3.5-5.1)
[2025-03-03 07:53] LABS: Anion Gap 9 (5-15); Calcium 9.8 mg/dL (8.7-10.4); Carbon Dioxide 27 mmol/L (20-31)
[2025-03-03 07:58] LABS: BUN/Creatinine Ratio 40.6 (10.0-20.0); Glucose 102 mg/dL (74-106)
[2025-03-03 08:04] LABS: Blood Urea Nitrogen 26 mg/dL (9-23); Chloride 111 mmol/L (98-107); Sodium 147 mmol/L (136-145)
[2025-03-03] MEDS: IODIXANOL 320MG/ML 100ML BTL IV ONE (12:56)
[2025-03-03] MEDS: GLUCAGON EMERG KIT 1mg/1ml IV ONE (13:30)
[2025-03-03] MEDS: fentaNYL CITRATE 100 MCG/2 ML VL ONE (13:37)
[2025-03-03] MEDS: MIDAZOLAM HCL 2MG/2ML 2ml VIAL (1mg/ml) ONE (13:38)
[2025-03-03] MEDS: LIDOCAINE 2%HCL (LOCAL ANESTH.) INJ 20ML MDV ONE (13:47)
--- NOTE | 2025-03-03 15:05 | DVH ---
XY PERCUTANEOUS G TUBE PL, HISTORY: PEG TUBE PL due to unable to have PO intake with Huntingtons disease. PROCEDURE: Informed consent was obtained. The patient was placed on the fluoroscopic table in supine position. City Recorder abdominal view was obtained. The liver was marked with ultrasound. The stomach was in sufflated via previously placed NGT. The epigastric area was then prepped with chlorhexidine which wa s allowed to dry and draped in sterile fashion. Time out was performed. IV sedation and 1% local lido jonathan were administered. Three separate needle passes were made sequentially about 1.5-2.0 cm apart i nto the distal gastric body under fluoroscopic guidance and T-tack gastropexy performed in routine fa shion. The needle was then passed into the stomach in between the tacks and an 0.035 wire curled with in the stomach. Following serial dilation, a 14-F Reji-G gastrostomy tube was placed. Catheterogram wa s obtained to confirm position. The catheter was then sutured to the skin and a sterile dressing appl ied. No immediate complication was identified. DAP 1049 FLUOROSCOPY TIME: 5.3 minutes. CONTRAST USED: 30 mL . SEDATION: Dr. Rosa Cole was personally responsible for the administration of moderate sedation during the procedure performed, including the use of an independent trained observer who had no other duties during the procedure. The drugs utilized were IV fentanyl and versed (see nursing log for details). The total time of supervision by the attending physician was approximately 45 minutes. FINDINGS: City Recorder image demonstrates adequate visualization of the large bowel. With the stomach insuff lated and the lateral margin of the left lobe of the liver marked, a safe subcostal approach was evid ent. Completion image demonstrates G-tube in the gastric body. IMPRESSION: Uneventful placement of 14-F balloon retention gastrostomy catheter. PLAN: This tube should not be used until uneventful overnight passage and unremarkable follow-up CT a bdomen without contrast. Please do not place crushed pills into this tube, so as to prevent "plugging up" the catheter. Patient to be scheduled in IR in about 2 weeks to remove the sutures.
--- NOTE | 2025-03-03 15:06 | DVHPNRES ---
Progress Note Date Seen: Mar 03, 2025 Resident Creating Document: JUAN CRUZ RESIDENT Has the PT tested + for MRSA If YES, has PT been informed?: No Medical Necessity Reason Pt with a Central, PICC or Fol: No Subjective Review of Systems 49-year-old male with PMHx of Huntingtons disease, Hepatitis C, GERD, mood disorder, and long incarceration history (released 2 months ago after 25 years), presented from home with 3 days of progressive weakness, altered mental status, poor oral intake, cough, foul-smelling urine, and constipation. Family states he has been off and was found hypotensive with SBP in the 70s by EMS. PMHx: GERD Hepatitis C Huntingtons disease Adjustment disorder Mood disorder History of MRSA Surgical History: Mandibular fracture (prior) Cystoscopy & ureteroscopy Family History: Unknown Social History: Formerly incarcerated 25 years; now living with family. Smoker, alcohol, drug use unknown Medications: Amantadine, benztropine, mirtazapine, lorazepam, risperidone, pantoprazole, propranolol, ferrous sulfate, lactulose, tamsulosin, deuterabenazine, naloxone nasal spray 02/20/2025: Na 165, continue D5W at 150cc/h, urology consulted, CT scan ordered: showed bladder thickening, possible lung consolidations and large volume stool, bladder scan less than 200 no need of cystostomy for now but if distention suprapubic puncture will be performed, mild fevers, continue vanco/ meropenem, patient was in low dose levophed since midnight 02/21/2025: levophed off, Na 157, D5W at 75cc/h, haloperidol jj, bladder scan less than 200cc today as well, case discussed with the brother today, he stated his mental status is getting to baseline (patient has advance dementia), downgrade to telemetry 02/23/2025: Patient's status discussed with the patient's brother POMeka, the option of PEG tube was discussed, he agrees, GI consult is placed 02/24/2025: NG tube placed, tube feedings started, tylenol PO started 02/25/2025: NG tube was misplaced, feedings were not started, today after multiple attempts, NG tube placed, pending start feedings, case discussed with Dr Enio GALLO, very high risk of intubation and complications if PEG tube will be placed, family meeting is planning for tomorrow to redefine goals of care (Today i talked with his uncle Quirino, which is his POA), K IV given 02/26/2025: Family meeting: Quirino his uncle RK and his were present, according to him, patient went to his place on December 20 and he was able to walk 20 feet, eat puree diet and said few phrases, but 2 weeks back he started to declined, not able to eat, be more drowsy and not able to walk, patient was also in many medications (mood and movement disorder meds), the possibility of intubation after PEG tube was addressed, so for now no PEG tube, also the option of home hospice was talked, they want more information, we tried at bedside feeding with apple sauce, he was eager to eat but not swallow entirely, we will continue tube feedings and slowly feeding with spoon, also deutetrabenazine will be started. 02/27/2025: deutetrabenazine was not able to get, other options will be tried, benztropine is started 02/28/2025: speech therapist evaluated the case, stated patient should be NPO, case was discussed with Dr Cole, IR, he stated he will try PEG tube insertion on monday, pending to get consent from family, they didnt garbage pick up man the phone today, D5W and AB were DC today 03/01/2025: I spoke with Quirino, he agreed on procedure, he will come at bedside to sign it, we will continue tube feedings 03/03/2025: tube feedings were held at 3 am, Dr Cole performed peg tube insertion by fluoroscopy, procedure without complications, SS were consulted for home hospice Objective vital signs Vital Sign Date Time Temp Pulse Resp B/P (MAP) Pulse Ox O2 Delivery O2 Flow Rate FiO2 03/03/25 09:00 98.6 80 16 132/74 (93) 99 98.6 03/03/25 07:30 Nasal Cannula* 2 28 Total Intake and Output 03/02/25 03/02/25 03/03/25 15:00 23:00 07:00 Intake Total 0 ml 0 ml Balance 0 ml 0 ml medications Current Medications Medications Dose Ordered Sig/Jj Route Start Time Stop Time Status Last Admin Dose Admin Lorazepam 1 mg Q5MINP PRN IV 02/19/25 15:30 02/24/25 15:25 1 MG Pantoprazole Sodium 40 mg DAILY IV 02/20/25 10:00 03/02/25 10:32 40 MG Dextrose 50 ml UD PRN IV 02/19/25 16:45 Enoxaparin Sodium 40 mg DAILY SC 02/20/25 10:00 03/02/25 10:33 40 MG Haloperidol Lactate 5 mg Q8HR IM 02/21/25 14:00 03/03/25 12:47 5 MG Enteral Nutritional Formula 1,000 ml 30ML/HR GT 02/24/25 14:45 Hold 03/03/25 00:16 1,000 ML Patient Own Medication 1 BID PO 02/26/25 22:00 Vancomycin HCl 300 ml @ 200 mls/hr Q12H IV 02/27/25 16:00 UNV Diagnostic Test (Pha) 1 strip Q12HR 02/28/25 22:00 03/03/25 10:00 1 STRIP Benztropine Mesylate 1 mg DAILY NG 03/01/25 10:00 03/02/25 10:33 1 MG Lactulose 15 ml DAILY NG 03/01/25 10:00 03/02/25 10:32 15 ML Acetaminophen 325 mg Q6HR NG 03/01/25 18:00 03/03/25 00:15 325 MG Examination Cachectic-appearing patient with poor dentition and marked muscle wasting. Patient exhibits continuous choreiform movements involving the face and upper extremities. Neurological exam notable for spastic rigidity, hyperreflexia, and multiple fixed contractures, particularly in the lower limbs. Limited voluntary movement and reduced verbal output. Lungs clear to auscultation bilaterally. Cardiovascular exam with regular rate and rhythm, no murmurs. Abdomen soft, non-tender, non-distended. laboratory and microbiology Laboratory Tests 03/03/25 07:06 03/02/25 04:28 Test 03/03/25 07:06 Range/Units Serum Glucose 102 74-106 mg/dL Microbiology Date/Time Source Procedure Growth Status 02/19/25 20:07 Nose MRSA Screen - Final Complete 02/19/25 13:26 Blood Blood Culture - Final NO GROWTH AFTER 5 DAYS OF INCUBATION. Complete Problem List/Assessment/Plan Problem List/Assessment/Plan #Acute metabolic encephalopathy likely multifactorial (sepsis, Huntingtons, chronic illness, electrolyte derangement) #Severe Hypernatremia (Na 175), likely chronic #Failure to thrive #Severe protein/caloric malnutrition #Severe dehydration due to poor oral intake #Devon disease, late stage #Sepsis #Complicated UTI #Possible aspiration pneumonia #Possible pneumonia gram +/ gram- . #Constipation #GERD #Hypokalemia #Ho/Hepatitis C #Urethral stricture disease #Possible false urethral passage #Urinary incontinence #s/p PEG tube placement NPO, just for meds Telemetry status Continue supportive care CT head: ischemic chronic changes, global atrophy Haloperidol JJ CT scan ordered: showed bladder thickening, possible lung consolidations and large volume stool If bladder is distended, please request Interventional Radiology to place a temporary suprapubic catheter. When patient was metabolically stable, we will consider performing a diagnostic cystoscopy and possible DVIU Tylenol PO JJ Benztropine Please dont use PEG tube for 24 h, perform CT scan ordered by Dr Cole Pending home hospice auth 02/28/2025: speech therapist evaluated the case, stated patient should be NPO, case was discussed with Dr Cole, IR, he stated he will try PEG tube insertion on monday, pending to get consent from family, they didnt garbage pick up man the phone today, D5W and AB were DC today 03/01/2025: I spoke with Quirino, he agreed on procedure, he will come at bedside to sign it, we will continue tube feedings 03/03/2025: tube feedings were held at 3 am, Dr Cole performed peg tube insertion by fluoroscopy, procedure without complications, [facility] were consulted for home hospice Code status: chemical code: no compressions, no defibrillation, no intubation, discussed with his uncle for 22 min Case discussed with Dr Simon Plan discussed with: Patient, Other My Orders My Orders Orders - JUAN CRUZ RESIDENT Procedure Category Date Status Time Percutaneous G Tube Pl XY 03/03/25 Taken 14:01 Dietary Evaluation Review Comments: 1. TPN if NPO>5 days 2. Damon 1 pk BID 3. Advance diet as medically feasible Expected Outcomes/Goals: To meet >75% estimated needs Fu 2-3 days Date of Service: Mar 03, 2025 Billing Provider: VY SIMON MD Common Visit Codes: [id number] INP/OBS CARE(HIGH) JUAN CRUZ RESIDENT Mar 03, 2025 15:06 VY SIMON MD Mar 04, 2025 21:31
--- NOTE | 2025-03-03 21:00 | DVHPN2 ---
Progress Note - Dictate Date Seen: Mar 03, 2025 Has the PT tested + for MRSA If YES, has PT been informed?: No Medical Necessity Reason Pt with a Central, PICC or Fol: No Subjective Pt underwent IR placed gastrostomy tube today vital signs Vital Sign Date Time Temp Pulse Resp B/P (MAP) Pulse Ox O2 Delivery O2 Flow Rate FiO2 03/03/25 17:00 97.8 105 20 106/67 (80) 99 97.8 03/03/25 07:30 Nasal Cannula* 2 28 Total Intake and Output 03/02/25 03/02/25 03/03/25 14:59 22:59 06:59 Intake Total 0 ml 0 ml Balance 0 ml 0 ml medications Current Medications Medications Dose Ordered Sig/Jj Route Start Time Stop Time Status Last Admin Dose Admin Lorazepam 1 mg Q5MINP PRN IV 02/19/25 15:30 02/24/25 15:25 1 MG Pantoprazole Sodium 40 mg DAILY IV 02/20/25 10:00 03/02/25 10:32 40 MG Dextrose 50 ml UD PRN IV 02/19/25 16:45 Enoxaparin Sodium 40 mg DAILY SC 02/20/25 10:00 03/02/25 10:33 40 MG Haloperidol Lactate 5 mg Q8HR IM 02/21/25 14:00 03/03/25 12:47 5 MG Patient Own Medication 1 BID PO 02/26/25 22:00 Vancomycin HCl 300 ml @ 200 mls/hr Q12H IV 02/27/25 16:00 UNV Diagnostic Test (Pha) 1 strip Q12HR 02/28/25 22:00 03/03/25 10:00 1 STRIP Benztropine Mesylate 1 mg DAILY NG 03/01/25 10:00 03/02/25 10:33 1 MG Lactulose 15 ml DAILY NG 03/01/25 10:00 03/02/25 10:32 15 ML Acetaminophen 325 mg Q6HR NG 03/01/25 18:00 03/03/25 00:15 325 MG objective Patient is having tremors , Choreiform movements as well as in no distress unable to communicate HEENT examination no pallor Lungs clear Cardiovascular unremarkable Abdomen is soft no distention no rigidity no masses laboratory and microbiology Laboratory Tests 03/03/25 07:06 03/02/25 04:28 Test 03/03/25 07:06 Range/Units Serum Glucose 102 74-106 mg/dL Problems(with codes): (1) Dysphagia (2) [place]'s disease (3) Generalized weakness (4) Dehydration Prognosis PLAN Start GT feedings tomorrow if gastric residual less than 100ml IV PPI Discharge planning, home health care as per hospitalist team; Dr Smith Dietary Evaluation Review Comments: 1. TPN if NPO>5 days 2. Damon 1 pk BID 3. Advance diet as medically feasible Expected Outcomes/Goals: To meet >75% estimated needs Fu 2-3 days Plan discussed with: Other (None) VEENA MCKEON MD Mar 03, 2025 21:00
[2025-03-04 05:00] VITALS: BP 109/83; PULSE 124; RESP 20; TEMP 98.9; O2SAT 95
[2025-03-04 06:16] LABS: Basophils # (auto) 0.1 10 ^3/uL (0-0.2); Basophils % (auto) 2.3 % (0.0-2.0); Eosinophils # (auto) 0 10 ^3/uL (0-0.8); Eosinophils % (auto) 0.3 % (0.0-7.0); Hematocrit 44.1 % (41.0-53.0); Hemoglobin 14.8 g/dL (13.5-17.5); Lymphocytes # (auto) 0.5 10 ^3/uL (0.4-5.4); Lymphocytes % (auto) 11.7 % (10.0-50.0); Mean Corpuscular Hgb Conc. 33.5 g/dL (32.0-36.0); Mean Corpuscular Volume 89.6 fL (80.0-100.0); Monocytes # (auto) 0.3 10 ^3/uL (0-1.3); Monocytes % (auto) 7.6 % (0.0-12.0); Neutrophils # (auto) 3.5 10 ^3/uL (1.6-8.6); Neutrophils % (auto) 78.1 % (37.0-80.0); Platelet Count (auto) 310 10^3/uL (140-450); Red Blood Cells 4.92 10^6/uL (4.5-5.90); Red Cell Distribution Width 14.1 % (11.8-14.3); White Blood Cell 4.5 10^3/uL (4.4-10.8)
[2025-03-04 06:30] LABS: Anion Gap 14 (5-15); Calcium 9.4 mg/dL (8.7-10.4); Carbon Dioxide 24 mmol/L (20-31); Potassium 4.1 mmol/L (3.5-5.1)
[2025-03-04 06:33] LABS: Chloride 111 mmol/L (98-107); Sodium 149 mmol/L (136-145)
[2025-03-04 06:36] LABS: BUN/Creatinine Ratio 46.2 (10.0-20.0); Glucose 95 mg/dL (74-106)
[2025-03-04 06:37] LABS: Blood Urea Nitrogen 36 mg/dL (9-23)
[2025-03-04 09:00] VITALS: BP 99/67; PULSE 119; RESP 18; TEMP 97.6; O2SAT 96
--- NOTE | 2025-03-04 10:48 | DVH ---
CT CT AB PEL WO CON-NO ORAL OR IV INDICATION: POST G-TUBE PLACEMENT EXAM DATE: 03/04/2025 10:09 AM COMPARISON: CT CT AB PEL WO CON-NO ORAL OR IV on DOS: 02/20/25 RADIATION DOSE: CTDIvol: 5.36 mGy, DLP: 268.97 mGy*cm PROCEDURE: Helical CT images were obtained of the abdomen and pelvis without IV contrast Sagittal and coronal reconstructions are provided. ORAL CONTRAST: None. ADDITIONAL IMAGES / REFORMATS: None All C T scans at this medical facility are performed using dose modulation techniques as appropriate to a p erformed exam including the following: Automated exposure control was utilized; adjustment of the MA and/or KV according to patient size; and use of iterative reconstruction technique. FINDINGS: LUNG BASE: Bibasilar atelectasis. LIVER: Normal. GALLBLADDER AND BILIARY TREE: Distended. No intra- or extrahepatic biliary ductal dilation. PANCREAS: Normal. SPLEEN: Normal. BOWEL: Contrast material in the colon which is filled with feces. ADRENALS: Normal. KIDNEYS AND URETER: Normal. BLADDER: Normal. REPRODUCTIVE ORGANS: Normal. LYMPH NODES:No lymphadenopathy. PERITONEUM: No ascites or free air. No other fluid collection. VESSELS: Scattered atherosclerotic calcifications are noted. RETROPERITONEUM: Normal. ABDOMINAL WALL: Normal. BONES: Scattered osseous degenerative changes are noted. IMPRESSION: Gastrostomy tube appears in the stomach, however suboptimal CT due to prominent motion artifact. Wong mmend G- tube check. Large hiatal hernia. Contrast material in the colon which is filled with feces.
--- NOTE | 2025-03-04 10:48 | DVHPNRES ---
Progress Note Date Seen: Mar 04, 2025 Resident Creating Document: JUAN CRUZ RESIDENT Has the PT tested + for MRSA If YES, has PT been informed?: No Medical Necessity Reason Pt with a Central, PICC or Fol: No Subjective Review of Systems 49-year-old male with PMHx of Huntingtons disease, Hepatitis C, GERD, mood disorder, and long incarceration history (released 2 months ago after 25 years), presented from home with 3 days of progressive weakness, altered mental status, poor oral intake, cough, foul-smelling urine, and constipation. Family states he has been off and was found hypotensive with SBP in the 70s by EMS. PMHx: GERD Hepatitis C Huntingtons disease Adjustment disorder Mood disorder History of MRSA Surgical History: Mandibular fracture (prior) Cystoscopy & ureteroscopy Family History: Unknown Social History: Formerly incarcerated 25 years; now living with family. Smoker, alcohol, drug use unknown Medications: Amantadine, benztropine, mirtazapine, lorazepam, risperidone, pantoprazole, propranolol, ferrous sulfate, lactulose, tamsulosin, deuterabenazine, naloxone nasal spray 02/20/2025: Na 165, continue D5W at 150cc/h, urology consulted, CT scan ordered: showed bladder thickening, possible lung consolidations and large volume stool, bladder scan less than 200 no need of cystostomy for now but if distention suprapubic puncture will be performed, mild fevers, continue vanco/ meropenem, patient was in low dose levophed since midnight 02/21/2025: levophed off, Na 157, D5W at 75cc/h, haloperidol jj, bladder scan less than 200cc today as well, case discussed with the brother today, he stated his mental status is getting to baseline (patient has advance dementia), downgrade to telemetry 02/23/2025: Patient's status discussed with the patient's brother POMeka, the option of PEG tube was discussed, he agrees, GI consult is placed 02/24/2025: NG tube placed, tube feedings started, tylenol PO started 02/25/2025: NG tube was misplaced, feedings were not started, today after multiple attempts, NG tube placed, pending start feedings, case discussed with Dr Enio GALLO, very high risk of intubation and complications if PEG tube will be placed, family meeting is planning for tomorrow to redefine goals of care (Today i talked with his uncle Quirino, which is his POA), K IV given 02/26/2025: Family meeting: Quirino his uncle RK and his were present, according to him, patient went to his place on December 20 and he was able to walk 20 feet, eat puree diet and said few phrases, but 2 weeks back he started to declined, not able to eat, be more drowsy and not able to walk, patient was also in many medications (mood and movement disorder meds), the possibility of intubation after PEG tube was addressed, so for now no PEG tube, also the option of home hospice was talked, they want more information, we tried at bedside feeding with apple sauce, he was eager to eat but not swallow entirely, we will continue tube feedings and slowly feeding with spoon, also deutetrabenazine will be started. 02/27/2025: deutetrabenazine was not able to get, other options will be tried, benztropine is started 02/28/2025: speech therapist evaluated the case, stated patient should be NPO, case was discussed with Dr Cole, IR, he stated he will try PEG tube insertion on monday, pending to get consent from family, they didnt roller picker the phone today, D5W and AB were DC today 03/01/2025: I spoke with Quirino, he agreed on procedure, he will come at bedside to sign it, we will continue tube feedings 03/03/2025: tube feedings were held at 3 am, Dr Cole performed peg tube insertion by fluoroscopy, procedure without complications, [facility] were consulted for home hospice 03/04/2025: CT scan: Gastrostomy tube appears in the stomach, feedings will started from the gtube Objective vital signs Vital Sign Date Time Temp Pulse Resp B/P (MAP) Pulse Ox O2 Delivery O2 Flow Rate FiO2 03/04/25 08:00 Nasal Cannula* 2 28 03/04/25 05:00 98.9 124 20 109/83 (92) 95 98.9 Total Intake and Output 03/03/25 03/03/25 03/04/25 15:00 23:00 07:00 Intake Total 0 ml 0 ml Balance 0 ml 0 ml medications Current Medications Medications Dose Ordered Sig/Jj Route Start Time Stop Time Status Last Admin Dose Admin Lorazepam 1 mg Q5MINP PRN IV 02/19/25 15:30 02/24/25 15:25 1 MG Pantoprazole Sodium 40 mg DAILY IV 02/20/25 10:00 03/04/25 08:16 40 MG Dextrose 50 ml UD PRN IV 02/19/25 16:45 Enoxaparin Sodium 40 mg DAILY SC 02/20/25 10:00 03/04/25 08:17 40 MG Haloperidol Lactate 5 mg Q8HR IM 02/21/25 14:00 03/04/25 05:47 5 MG Patient Own Medication 1 BID PO 02/26/25 22:00 Vancomycin HCl 300 ml @ 200 mls/hr Q12H IV 02/27/25 16:00 UNV Diagnostic Test (Pha) 1 strip Q12HR 02/28/25 22:00 03/03/25 22:12 1 STRIP Benztropine Mesylate 1 mg DAILY NG 03/01/25 10:00 03/02/25 10:33 1 MG Lactulose 15 ml DAILY NG 03/01/25 10:00 03/02/25 10:32 15 ML Acetaminophen 325 mg Q6HR NG 03/01/25 18:00 03/03/25 00:15 325 MG Examination Cachectic-appearing patient with poor dentition and marked muscle wasting. Patient exhibits continuous choreiform movements involving the face and upper extremities. Neurological exam notable for spastic rigidity, hyperreflexia, and multiple fixed contractures, particularly in the lower limbs. Limited voluntary movement and reduced verbal output. Lungs clear to auscultation bilaterally. Cardiovascular exam with regular rate and rhythm, no murmurs. Abdomen PEG tube on place, functioning laboratory and microbiology Laboratory Tests 03/04/25 06:01 Test 03/04/25 06:01 Range/Units Serum Glucose 95 74-106 mg/dL Microbiology Date/Time Source Procedure Growth Status 02/19/25 20:07 Nose MRSA Screen - Final Complete 02/19/25 13:26 Blood Blood Culture - Final NO GROWTH AFTER 5 DAYS OF INCUBATION. Complete Problem List/Assessment/Plan Problem List/Assessment/Plan #Acute metabolic encephalopathy likely multifactorial (sepsis, Huntingtons, chronic illness, electrolyte derangement) #Severe Hypernatremia (Na 175), likely chronic #Failure to thrive #Severe protein/caloric malnutrition #Severe dehydration due to poor oral intake #[place] disease, late stage #Sepsis #Complicated UTI #Possible aspiration pneumonia #Possible pneumonia gram +/ gram- . #Constipation #GERD #Hypokalemia #Ho/Hepatitis C #Urethral stricture disease #Possible false urethral passage #Urinary incontinence #s/p PEG tube placement NPO, just for meds Telemetry status Continue supportive care CT head: ischemic chronic changes, global atrophy Haloperidol JJ CT scan ordered: showed bladder thickening, possible lung consolidations and large volume stool If bladder is distended, please request Interventional Radiology to place a temporary suprapubic catheter. When patient was metabolically stable, we will consider performing a diagnostic cystoscopy and possible DVIU Tylenol PO JJ Benztropine Pending home hospice auth 03/04/2025: CT scan: Gastrostomy tube appears in the stomach, feedings will started from the gtube Code status: chemical code: no compressions, no defibrillation, no intubation, discussed with his uncle for 22 min Case discussed with Dr Simon Plan discussed with: Patient, Other (rn) My Orders My Orders Orders - JUNA CRUZ RESIDENT Procedure Category Date Status Time Percutaneous G Tube Pl XY 03/03/25 Resulted 14:01 * Electronics Manufacturer CONS 03/03/25 Transmitted Consult Npo Except For ELIER 03/03/25 In Process Medications 15:48 Npo (Nothing By DIET 03/03/25 Transmitted Mouth) Diet Dinner Dietary Evaluation Review Comments: 1. TPN if NPO>5 days 2. Damon 1 pk BID 3. Advance diet as medically feasible Expected Outcomes/Goals: To meet >75% estimated needs Fu 2-3 days Date of Service: Mar 04, 2025 Billing Provider: VY SIMON MD Common Visit Codes: [id number] INP/OBS CARE([facility]) JUAN CRUZ RESIDENT Mar 04, 2025 10:48 VY SIMON MD Mar 07, 2025 15:15
[2025-03-04] MEDS: GASTROGRAFIN 120 ML SOL ONE (11:44)
[2025-03-04] MEDS: GASTROGRAFIN 30 ML SOL ONE (11:45)
[2025-03-04 13:00] VITALS: PULSE 112; RESP 20; TEMP 99.2; O2SAT 96
--- NOTE | 2025-03-04 13:51 | DVH ---
Procedure: XY ABDOMEN 2 VIEW Exam Date: 03/04/2025 11:15 AM History: G TUBE CHECK WITH CONTRAST Comparison Study: None Technique: AP of the chest AP upright of the abdomen AP supine of the abdomen FINDINGS: No focal evidence of airspace disease. The cardiomediastinal silhouette is within normal limits. No acute osseous lesions. Nonobstructive bowel gas pattern noted. There is no evidence for pneumoperitoneum. No abnormal calci fications noted. IMPRESSION: Non-specific gas-filled loops of bowel. Large stool burden. Contrast seen in the stomach. END IMPRESSION:
[2025-03-04] MEDS ORDERED: diphenhdrAMINE HCL 12.5 MG/5 ML UD PEG SCH (16:00)
[2025-03-04] MEDS ORDERED: diphenhdrAMINE HCL 12.5 MG/5 ML UD GT PRN (16:00)
[2025-03-04] MEDS: diphenhdrAMINE HCL 25 MG CAP PO SCH (16:59)
[2025-03-04 17:00] VITALS: BP 147/88; PULSE 119; RESP 20; TEMP 98.7; O2SAT 95
[2025-03-04 21:00] VITALS: BP 119/94; PULSE 94; RESP 18; TEMP 97.7; O2SAT 96
--- NOTE | 2025-03-04 21:05 | DVHPN2 ---
Progress Note - Dictate Date Seen: Mar 04, 2025 Has the PT tested + for MRSA If YES, has PT been informed?: No Medical Necessity Reason Pt with a Central, PICC or Fol: No Subjective Pt underwent IR placed gastrostomy tube yesterday Today patient has been started on G-tube feedings which she is tolerating well with minimal residuals NG tube was discontinued vital signs Vital Sign Date Time Temp Pulse Resp B/P (MAP) Pulse Ox O2 Delivery O2 Flow Rate FiO2 03/04/25 17:00 98.7 119 20 147/88 (107) 95 98.7 03/04/25 08:00 Nasal Cannula* 2 28 Total Intake and Output 03/03/25 03/03/25 03/04/25 15:00 23:00 07:00 Intake Total 0 ml 0 ml Balance 0 ml 0 ml medications Current Medications Medications Dose Ordered Sig/Jj Route Start Time Stop Time Status Last Admin Dose Admin Lorazepam 1 mg Q5MINP PRN IV 02/19/25 15:30 02/24/25 15:25 1 MG Pantoprazole Sodium 40 mg DAILY IV 02/20/25 10:00 03/04/25 08:16 40 MG Dextrose 50 ml UD PRN IV 02/19/25 16:45 Enoxaparin Sodium 40 mg DAILY SC 02/20/25 10:00 03/04/25 08:17 40 MG Haloperidol Lactate 5 mg Q8HR IM 02/21/25 14:00 03/04/25 13:09 5 MG Vancomycin HCl 300 ml @ 200 mls/hr Q12H IV 02/27/25 16:00 UNV Diagnostic Test (Pha) 1 strip Q12HR 02/28/25 22:00 03/03/25 22:12 1 STRIP Benztropine Mesylate 1 mg DAILY PEG 03/05/25 10:00 Lactulose 15 ml DAILY PEG 03/05/25 10:00 Patient Own Medication 1 BID PO 03/04/25 22:00 Diphenhydramine HCl 50 mg Q6HR PEG 03/04/25 16:00 Cancel Acetaminophen 325 mg Q6H PEG 03/05/25 16:00 Diphenhydramine HCl 50 mg Q6H PO 03/04/25 16:00 03/04/25 16:59 50 MG objective Patient is having tremors , Choreiform movements as well as in no distress unable to communicate HEENT examination no pallor Lungs clear Cardiovascular unremarkable Abdomen is soft no distention no rigidity no masses laboratory and microbiology Laboratory Tests 03/04/25 06:01 Test 03/04/25 06:01 Range/Units Serum Glucose 95 74-106 mg/dL Problems(with codes): (1) Dysphagia (2) [place]ess's disease (3) Hypernatremia (4) Generalized weakness (5) Dehydration Prognosis Plan Continue supportive care Advance G-tube feedings as tolerated Discharge planning as per hospitalist Monitor labs Long-term prognosis is poor and guarded Dietary Evaluation Review Comments: 1. TPN if NPO>5 days 2. Damon 1 pk BID 3. Advance diet as medically feasible Expected Outcomes/Goals: To meet >75% estimated needs Fu 2-3 days Plan discussed with: Patient, Other (Sitter) VEENA MCKEON MD Mar 04, 2025 21:05
[2025-03-04] MEDS: DEUTETRABENAZINE 12 MG PO SCH (21:48)
[2025-03-05 01:00] VITALS: BP 99/51; PULSE 74; RESP 19; TEMP 97.5; O2SAT 96
[2025-03-05 05:00] VITALS: BP 106/71; PULSE 128; RESP 24; TEMP 97.6; O2SAT 95
[2025-03-05 09:00] VITALS: BP 110/81; PULSE 111; RESP 22; TEMP 99.4; O2SAT 97
[2025-03-05] MEDS ORDERED: LACTULOSE 20Gm/30ML SOLN PEG SCH (10:00)
[2025-03-05] MEDS: BENZTROPINE MESY 0.5 MG TAB PEG SCH (10:22)
[2025-03-05] MEDS: LACTULOSE 20Gm/30ML SOLN PEG SCH (10:48)
[2025-03-05] MEDS ORDERED: ACETAMINOPHEN 650 mg PER 20.3 mL UD PEG SCH (12:00)
[2025-03-05 13:11] VITALS: BP 93/61; PULSE 79; RESP 18; TEMP 99.6; O2SAT 96
--- NOTE | 2025-03-05 16:02 | DVHPNRES ---
Progress Note Date Seen: Mar 05, 2025 Resident Creating Document: JUAN CRUZ RESIDENT Has the PT tested + for MRSA If YES, has PT been informed?: No Medical Necessity Reason Pt with a Central, PICC or Fol: No Subjective Review of Systems 49-year-old male with PMHx of Huntingtons disease, Hepatitis C, GERD, mood disorder, and long incarceration history (released 2 months ago after 25 years), presented from home with 3 days of progressive weakness, altered mental status, poor oral intake, cough, foul-smelling urine, and constipation. Family states he has been off and was found hypotensive with SBP in the 70s by EMS. PMHx: GERD Hepatitis C Huntingtons disease Adjustment disorder Mood disorder History of MRSA Surgical History: Mandibular fracture (prior) Cystoscopy & ureteroscopy Family History: Unknown Social History: Formerly incarcerated 25 years; now living with family. Smoker, alcohol, drug use unknown Medications: Amantadine, benztropine, mirtazapine, lorazepam, risperidone, pantoprazole, propranolol, ferrous sulfate, lactulose, tamsulosin, deuterabenazine, naloxone nasal spray 02/20/2025: Na 165, continue D5W at 150cc/h, urology consulted, CT scan ordered: showed bladder thickening, possible lung consolidations and large volume stool, bladder scan less than 200 no need of cystostomy for now but if distention suprapubic puncture will be performed, mild fevers, continue vanco/ meropenem, patient was in low dose levophed since midnight 02/21/2025: levophed off, Na 157, D5W at 75cc/h, haloperidol jj, bladder scan less than 200cc today as well, case discussed with the brother today, he stated his mental status is getting to baseline (patient has advance dementia), downgrade to telemetry 02/23/2025: Patient's status discussed with the patient's brother POMeka, the option of PEG tube was discussed, he agrees, GI consult is placed 02/24/2025: NG tube placed, tube feedings started, tylenol PO started 02/25/2025: NG tube was misplaced, feedings were not started, today after multiple attempts, NG tube placed, pending start feedings, case discussed with Dr Enio GALLO, very high risk of intubation and complications if PEG tube will be placed, family meeting is planning for tomorrow to redefine goals of care (Today i talked with his uncle Quirino, which is his POA), K IV given 02/26/2025: Family meeting: Quirino his uncle RK and his were present, according to him, patient went to his place on December 20 and he was able to walk 20 feet, eat puree diet and said few phrases, but 2 weeks back he started to declined, not able to eat, be more drowsy and not able to walk, patient was also in many medications (mood and movement disorder meds), the possibility of intubation after PEG tube was addressed, so for now no PEG tube, also the option of home hospice was talked, they want more information, we tried at bedside feeding with apple sauce, he was eager to eat but not swallow entirely, we will continue tube feedings and slowly feeding with spoon, also deutetrabenazine will be started. 02/27/2025: deutetrabenazine was not able to get, other options will be tried, benztropine is started 02/28/2025: speech therapist evaluated the case, stated patient should be NPO, case was discussed with Dr Cole, IR, he stated he will try PEG tube insertion on monday, pending to get consent from family, they didnt tile picker the phone today, D5W and AB were DC today 03/01/2025: I spoke with Quirino, he agreed on procedure, he will come at bedside to sign it, we will continue tube feedings 03/03/2025: tube feedings were held at 3 am, Dr Cole performed peg tube insertion by fluoroscopy, procedure without complications, [facility] were consulted for home hospice 03/04/2025: CT scan: Gastrostomy tube appears in the stomach, feedings will started from the gtube 03/05/2025: family accepted hospice, patient will be f/u by [facility], [place] tomorrow Objective vital signs Vital Sign Date Time Temp Pulse Resp B/P (MAP) Pulse Ox O2 Delivery O2 Flow Rate FiO2 03/05/25 13:11 99.6 79 18 93/61 (72) 96 99.6 03/05/25 08:00 Nasal Cannula* 2 28 Total Intake and Output 603/04/25 03/05/25 15:00 23:00 07:00 Intake Total 0 ml 360 ml Balance 0 ml 360 ml medications Current Medications Medications Dose Ordered Sig/Jj Route Start Time Stop Time Status Last Admin Dose Admin Lorazepam 1 mg Q5MINP PRN IV 02/19/25 15:30 02/24/25 15:25 1 MG Pantoprazole Sodium 40 mg DAILY IV 02/20/25 10:00 03/05/25 10:22 40 MG Dextrose 50 ml UD PRN IV 02/19/25 16:45 Enoxaparin Sodium 40 mg DAILY SC 02/20/25 10:00 03/05/25 10:22 40 MG Haloperidol Lactate 5 mg Q8HR IM 02/21/25 14:00 03/05/25 14:57 5 MG Vancomycin HCl 300 ml @ 200 mls/hr Q12H IV 02/27/25 16:00 UNV Diagnostic Test (Pha) 1 strip Q12HR 02/28/25 22:00 03/05/25 10:00 1 STRIP Benztropine Mesylate 1 mg DAILY PEG 03/05/25 10:00 03/05/25 10:22 1 MG Patient Own Medication 1 BID PO 03/04/25 22:00 Diphenhydramine HCl 50 mg Q6HR PEG 03/04/25 16:00 Cancel Acetaminophen 325 mg Q6H PEG 03/05/25 16:00 Diphenhydramine HCl 50 mg Q6H PO 03/04/25 16:00 03/05/25 10:22 50 MG Lactulose 15 ml BID PEG 03/05/25 10:00 03/05/25 10:48 15 ML Examination Cachectic-appearing patient with poor dentition and marked muscle wasting. Patient exhibits continuous choreiform movements involving the face and upper extremities. Neurological exam notable for spastic rigidity, hyperreflexia, and multiple fixed contractures, particularly in the lower limbs. Limited voluntary movement and reduced verbal output. Lungs clear to auscultation bilaterally. Cardiovascular exam with regular rate and rhythm, no murmurs. Abdomen PEG tube on place, functioning laboratory and microbiology Laboratory Tests 03/04/25 06:01 Test 03/04/25 06:01 Range/Units Serum Glucose 95 74-106 mg/dL Microbiology Date/Time Source Procedure Growth Status 02/19/25 20:07 Nose MRSA Screen - Final Complete 02/19/25 13:26 Blood Blood Culture - Final NO GROWTH AFTER 5 DAYS OF INCUBATION. Complete Problem List/Assessment/Plan Problem List/Assessment/Plan #Acute metabolic encephalopathy likely multifactorial (sepsis, Huntingtons, chronic illness, electrolyte derangement) #Severe Hypernatremia (Na 175), likely chronic #Failure to thrive #Severe protein/caloric malnutrition #Severe dehydration due to poor oral intake #[place] disease, late stage #Sepsis #Complicated UTI #Possible aspiration pneumonia #Possible pneumonia gram +/ gram- . #Constipation #GERD #Hypokalemia #Ho/Hepatitis C #Urethral stricture disease #Possible false urethral passage #Urinary incontinence #s/p PEG tube placement NPO, just for meds Telemetry status Continue supportive care CT head: ischemic chronic changes, global atrophy Haloperidol JJ CT scan ordered: showed bladder thickening, possible lung consolidations and large volume stool If bladder is distended, please request Interventional Radiology to place a temporary suprapubic catheter. When patient was metabolically stable, we will consider performing a diagnostic cystoscopy and possible DVIU Tylenol PO JJ Benztropine Pending home hospice auth 03/04/2025: CT scan: Gastrostomy tube appears in the stomach, feedings will started from the gtube 03/05/2025: family accepted hospice, patient will be f/u by [place], [place] tomorrow Code status: chemical code: no compressions, no defibrillation, no intubation, discussed with his uncle for 22 min Case discussed with Dr Simon Plan discussed with: Patient, Other My Orders My Orders Orders - JUAN CRUZ Procedure Category Date Status Time Lactulose Oral PHA 03/05/25 In Process 10:00 Dietary Evaluation Review Comments: 1. TPN if NPO>5 days 2. Damon 1 pk BID 3. Advance diet as medically feasible Expected Outcomes/Goals: To meet >75% estimated needs Fu 2-3 days Date of Service: Mar 05, 2025 Billing Provider: VY SIMON MD Common Visit Codes: [id number] INP/OBS CARE([facility]) JUAN CRUZ Mar 05, 2025 16:02 VY SIMON MD Mar 07, 2025 15:22
[2025-03-05] MEDS: ACETAMINOPHEN 650 mg PER 20.3 mL UD PEG SCH (16:34)
[2025-03-05 17:00] VITALS: BP 98/80; PULSE 124; RESP 18; TEMP 99.7; O2SAT 94
[2025-03-05 21:00] VITALS: BP 97/79; PULSE 131; RESP 20; TEMP 97.8; O2SAT 96
--- NOTE | 2025-03-05 22:21 | DVHPN2 ---
Progress Note - Dictate Date Seen: Mar 05, 2025 Has the PT tested + for MRSA If YES, has PT been informed?: No Medical Necessity Reason Pt with a Central, PICC or Fol: No Subjective Pt tolerating G-tube feedings with minimal residuals On 2 L nasal cannula No bowel movement recorded vital signs Vital Sign Date Time Temp Pulse Resp B/P (MAP) Pulse Ox O2 Delivery O2 Flow Rate FiO2 03/05/25 21:00 97.8 131 20 97/79 (85) 96 97.8 03/05/25 08:00 Nasal Cannula* 2 28 Total Intake and Output 03/04/25 03/04/25 03/05/25 15:00 23:00 07:00 Intake Total 0 ml 360 ml Balance 0 ml 360 ml medications Current Medications Medications Dose Ordered Sig/Jj Route Start Time Stop Time Status Last Admin Dose Admin Lorazepam 1 mg Q5MINP PRN IV 02/19/25 15:30 02/24/25 15:25 1 MG Pantoprazole Sodium 40 mg DAILY IV 02/20/25 10:00 03/05/25 10:22 40 MG Dextrose 50 ml UD PRN IV 02/19/25 16:45 Enoxaparin Sodium 40 mg DAILY SC 02/20/25 10:00 03/05/25 10:22 40 MG Haloperidol Lactate 5 mg Q8HR IM 02/21/25 14:00 03/05/25 14:57 5 MG Vancomycin HCl 300 ml @ 200 mls/hr Q12H IV 02/27/25 16:00 UNV Diagnostic Test (Pha) 1 strip Q12HR 02/28/25 22:00 03/05/25 10:00 1 STRIP Benztropine Mesylate 1 mg DAILY PEG 03/05/25 10:00 03/05/25 10:22 1 MG Patient Own Medication 1 BID PO 03/04/25 22:00 Diphenhydramine HCl 50 mg Q6HR PEG 03/04/25 16:00 Cancel Acetaminophen 325 mg Q6H PEG 03/05/25 16:00 03/05/25 16:34 325 MG Diphenhydramine HCl 50 mg Q6H PO 03/04/25 16:00 03/05/25 16:34 50 MG Lactulose 15 ml BID PEG 03/05/25 10:00 03/05/25 10:48 15 ML objective Patient is having tremors , Choreiform movements as well as in no distress unable to communicate HEENT examination no pallor Lungs clear Cardiovascular unremarkable Abdomen is soft no distention no rigidity no masses laboratory and microbiology Laboratory Tests 03/04/25 06:01 Test 03/04/25 06:01 Range/Units Serum Glucose 95 74-106 mg/dL Problems(with codes): (1) Dysphagia (2) [place]'s disease (3) Generalized weakness (4) Hypernatremia (5) Dehydration Prognosis Plan Fleets enema x1 Advance G-tube feedings as tolerated Discharge planning to hospice once authorized Continue supportive care Prognosis remains guarded Dietary Evaluation Review Comments: 1. TPN if NPO>5 days 2. Damon 1 pk BID 3. Advance diet as medically feasible Expected Outcomes/Goals: To meet >75% estimated needs Fu 2-3 days Plan discussed with: Other (Dr Smith) VEENA MCKEON MD Mar 05, 2025 22:21
[2025-03-06 01:00] VITALS: BP 108/58; PULSE 120; RESP 19; TEMP 97.9; O2SAT 97
[2025-03-06 05:00] VITALS: BP 110/89; PULSE 121; RESP 20; TEMP 97.6; O2SAT 98
[2025-03-06 08:45] VITALS: BP 116/94; PULSE 65; RESP 17; TEMP 97.4; O2SAT 90
[2025-03-06 13:00] VITALS: BP 109/91; PULSE 85; RESP 18; TEMP 97.9; O2SAT 92
[2025-03-06 13:54] VITALS: TEMP 36.6
[2025-03-06 16:36] VITALS: TEMP 97.9
--- NOTE | 2025-03-06 17:16 | DVHDSRES ---
Discharge Summary Date of Admission Resident Creating Document: JUAN CRUZ RESIDENT Feb 19, 2025 at 15:23 Date of Discharge: Mar 06, 2025 Admitting Diagnosis #Acute metabolic encephalopathy likely multifactorial (sepsis, Huntingtons, chronic illness, electrolyte derangement) Labs/Diagnostic Data: Laboratory Results Test 03/06/25 10:49 03/04/25 06:01 02/28/25 02:50 02/25/25 04:44 POC Glucose 131 mg/dl (70-106) White Blood Count 4.5 10^3/uL (4.4-10.8) Red Blood Count 4.92 10^6/uL (4.5-5.90) Hemoglobin 14.8 g/dL (13.5-17.5) Hematocrit 44.1 % (41.0-53.0) Mean Corpuscular Volume 89.6 fL (80.0-100.0) Mean Corpuscular Hemoglobin 30.0 pg (28.0-32.0) Mean Corpuscular Hemoglobin Concent 33.5 g/dL (32.0-36.0) Red Cell Distribution Width 14.1 % (11.8-14.3) Platelet Count 310 10^3/uL (140-450) Mean Platelet Volume 9.7 fL (6.9-10.8) Neutrophils (%) (Auto) 78.1 % (37.0-80.0) Lymphocytes (%) (Auto) 11.7 % (10.0-50.0) Monocytes (%) (Auto) 7.6 % (0.0-12.0) Eosinophils (%) (Auto) 0.3 % (0.0-7.0) Basophils (%) (Auto) 2.3 % (0.0-2.0) Neutrophils # (Auto) 3.5 10 ^3/uL (1.6-8.6) Lymphocytes # (Auto) 0.5 10 ^3/uL (0.4-5.4) Monocytes # (Auto) 0.3 10 ^3/uL (0-1.3) Eosinophils # (Auto) 0 10 ^3/uL (0-0.8) Basophils # (Auto) 0.1 10 ^3/uL (0-0.2) Nucleated Red Blood Cells 0.0 % Sodium Level 149 mmol/L (136-145) Potassium Level 4.1 mmol/L (3.5-5.1) Chloride Level 111 mmol/L (98-107) Carbon Dioxide Level 24 mmol/L (20-31) Anion Gap 14 (5-15) Blood Urea Nitrogen 36 mg/dL (9-23) Creatinine 0.78 mg/dL (0.700-1.30) Glomerular Filtration Rate Calc 108 mL/min (>90) BUN/Creatinine Ratio 46.2 (10.0-20.0) Serum Glucose 95 mg/dL (74-106) Calcium Level 9.4 mg/dL (8.7-10.4) Vancomycin Level Trough 23.8 ug/mL (5-10) Total Bilirubin 0.5 mg/dL (0.2-1.0) Aspartate Amino Transferase (AST) 71 U/L (13-40) Alanine Aminotransferase (ALT) 69 U/L (7-40) Alkaline Phosphatase 93 U/L (46-116) Total Protein 6.6 g/dL (5.7-8.2) Albumin 3.4 g/dL (3.2-4.8) Test 02/24/25 05:12 02/23/25 01:53 02/22/25 15:54 02/20/25 05:53 Random Vancomycin Level 5.0 ug/mL (5-10) Vitamin B12 Level 2493 pg/mL (211-911) Folic Acid 18.53 ng/mL (>5.38) Thyroid Stimulating Hormone (TSH) 0.07 uIU/mL (0.55-4.78) Free Thyroxine (T4) Calculated 1.21 ng/dL (0.89-1.76) Prothrombin Time 12.4 sec (9.3-11.8) Prothrombin Time INR 1.19 (0.9-1.15) Activated Partial Thromboplast Time 30.5 SEC (24.5-34.5) Hemoglobin A1c 5.0 % A1C (<5.7) Phosphorus Level 3.6 mg/dL (2.4-5.1) Magnesium Level 3.2 mg/dL (1.6-2.6) Test 02/19/25 22:06 02/19/25 20:07 02/19/25 18:13 02/19/25 14:25 Hepatitis A IgM Antibody Negative Hepatitis B Surface Antigen Negative (Negative) Hepatitis B Core IgM Antibody Negative (Negative) Hepatitis C Antibody Positive (Negative) Influenza Type A Antigen Negative (Negative) Influenza Type B Antigen Negative (Negative) SARS-CoV-2 Antigen (Rapid) Negative (NEGATIVE) Free Triiodothyronine (T3) pg/mL 2.69 pg/mL (2.3-4.2) Blood Gas Specimen Type Arterial Blood Gas Sample Site Right radial Blood Gas Patient Temperature 37.0 Arterial Blood Date Drawn [id number] Arterial Blood pH 7.459 (7.350-7.450) Arterial Blood Partial Pressure CO2 33.2 mmHg (35.0-48.0) Arterial Blood Partial Pressure O2 98.4 mmHg (83.0-108.0) Arterial Blood HCO3 23.0 mmol/L (21.0-28.0) Arterial Blood Oxygen Saturation 97.1 % (94.0-98.0) Arterial Blood Base Excess -0.1 mmol/L (-2.0-3.0) Arterial Blood Oxyhemoglobin 96.1 % (94.0-98.0) Arterial Blood Carboxyhemoglobin 0.6 % (0.5-1.5) Arterial Blood Methemoglobin 0.4 % (0.0-1.5) Ash Test Yes Blood Gas Total Hemoglobin 13.50 g/dL (13.5-17.5) Blood Gas Liter Flow 10.00 Blood Gas Modality Mask - simple FiO2 % 60.0 Test 02/19/25 13:26 Serum Osmolality 382 mOsm/kg (278-298) Lactic Acid Level 1.5 mmol/L (0.4-2.0) Direct Bilirubin 0.2 mg/dL (<0.3) Ammonia 12 umol/L (11-32) Beta-Hydroxybutyric Acid 0.384 mmol/L (< 0.4) Plasma/Serum Blood Alcohol < 3.0 mg/dL (<10) Other Laboratory Tests 03/04/25 06:01 Brief Hx & Hospital Course: This is a 49-year-old male with a past medical history significant for Huntingtons disease (late-stage), hepatitis C, GERD, mood disorder, history of long-term incarceration (recently released after 25 years), and prior MRSA colonization. He presented from home with progressive weakness, altered mental status, poor oral intake, cough, foul-smelling urine, and constipation. On arrival, he was hypotensive with SBP in the 70s, and admitted with concern for sepsis and encephalopathy. Initial workup revealed hypernatremia (Na 175), leukocytosis, and evidence of possible aspiration pneumonia. CT imaging showed bladder thickening and large volume stool, as well as bibasilar consolidations. Bladder scan was <200cc; he did not require Fry or cystostomy at that time. Patients mental status was significantly altered on admission and remained poor throughout hospitalization, consistent with severe metabolic encephalopathy (likely multifactorial from sepsis, electrolyte derangement, and chronic neurodegeneration). He was diagnosed with failure to thrive, protein-calorie malnutrition, severe dehydration, and late-stage [place]'s disease. Due to poor oral intake and altered mental status, he was evaluated for PEG tube placement. GI was consulted and agreed on PEG placement via fluoroscopy, no endoscopy . Family was involved throughout, and eventually opted for home hospice after understanding poor prognosis. PEG tube was successfully placed without complications; feeds started through G-tube. Patient was transitioned to comfort care. No acute interventions were planned. [facility] accepted the case, Family was in agreement with this plan. Case discussed with Dr Simon Consults/Reason for consult GI due to the need of peg tube Neurology due to advance [place] disease IR for peg tube fluoroscopy Operations or Procedures XY PERCUTANEOUS G TUBE PL, HISTORY: PEG TUBE PL due to unable to have PO intake with Huntingtons disease. PROCEDURE: Informed consent was obtained. The patient was placed on the fluoroscopic table in supine position. Station Usher abdominal view was obtained. The liver was marked with ultrasound. The stomach was insufflated via previously placed NGT. The epigastric area was then prepped with chlorhexidine which was allowed to dry and draped in sterile fashion. Time out was performed. IV sedation and 1% local lidocaine were administered. Three separate needle passes were made sequentially about 1.5-2.0 cm apart into the distal gastric body under fluoroscopic guidance and T-tack gastropexy performed in routine fashion. The needle was then passed into the stomach in between the tacks and an 0.035 wire curled within the stomach. Following serial dilation, a 14-F Reji-G gastrostomy tube was placed. Catheterogram was obtained to confirm position. The catheter was then sutured to the skin and a sterile dressing applied. No immediate complication was identified. DAP 1049 FLUOROSCOPY TIME: 5.3 minutes. CONTRAST USED: 30 mL . SEDATION: Dr. Rosa Cole was personally responsible for the administration of moderate sedation during the procedure performed, including the use of an independent trained observer who had no other duties during the procedure. The drugs utilized were IV fentanyl and versed (see nursing log for details). The total time of supervision by the attending physician was approximately 45 minutes. FINDINGS: Station Usher image demonstrates adequate visualization of the large bowel. With the stomach insufflated and the lateral margin of the left lobe of the liver marked, a safe subcostal approach was evident. Completion image demonstrates G-tube in the gastric body. IMPRESSION: Uneventful placement of 14-F balloon retention gastrostomy catheter. PLAN: This tube should not be used until uneventful overnight passage and unremarkable follow-up CT abdomen without contrast. Please do not place crushed pills into this tube, so as to prevent "plugging up" the catheter. Patient to be scheduled in IR in about 2 weeks to remove the sutures. CT CT AB PEL WO CON-NO ORAL OR IV INDICATION: POST G-TUBE PLACEMENT EXAM DATE: 03/04/2025 10:09 AM COMPARISON: CT CT AB PEL WO CON-NO ORAL OR IV on DOS: 02/20/25 RADIATION DOSE: CTDIvol: 5.36 mGy, DLP: 268.97 mGy*cm PROCEDURE: Helical CT images were obtained of the abdomen and pelvis without IV contrast Sagittal and coronal reconstructions are provided. ORAL CONTRAST: None. ADDITIONAL IMAGES / REFORMATS: None All CT scans at this medical facility are performed using dose modulation techniques as appropriate to a performed exam including the following: Automated exposure control was utilized; adjustment of the MA and/or KV according to patient size; and use of iterative reconstruction technique. FINDINGS: LUNG BASE: Bibasilar atelectasis. LIVER: Normal. GALLBLADDER AND BILIARY TREE: Distended. No intra- or extrahepatic biliary ductal dilation. PANCREAS: Normal. SPLEEN: Normal. BOWEL: Contrast material in the colon which is filled with feces. ADRENALS: Normal. KIDNEYS AND URETER: Normal. BLADDER: Normal. REPRODUCTIVE ORGANS: Normal. LYMPH NODES:No lymphadenopathy. PERITONEUM: No ascites or free air. No other fluid collection. VESSELS: Scattered atherosclerotic calcifications are noted. RETROPERITONEUM: Normal. ABDOMINAL WALL: Normal. BONES: Scattered osseous degenerative changes are noted. IMPRESSION: Gastrostomy tube appears in the stomach, however suboptimal CT due to prominent motion artifact. Recommend G- tube check. Large hiatal hernia. Contrast material in the colon which is filled with feces. Condition at Discharge: Poor Final Diagnosis/Problems List #Acute metabolic encephalopathy likely multifactorial (sepsis, Huntingtons, chronic illness, electrolyte derangement) #Severe Hypernatremia (Na 175), likely chronic #Failure to thrive #Severe protein/caloric malnutrition #Severe dehydration due to poor oral intake #[place] disease, late stage #Sepsis #Complicated UTI #Possible aspiration pneumonia #Possible pneumonia gram +/ gram- . #Constipation #GERD #Hypokalemia #Ho/Hepatitis C #Urethral stricture disease #Possible false urethral passage #Urinary incontinence #s/p PEG tube placement Discharge Disposition: Hospice - Home Discharge Instruct/Medications Diet: See Comment Diet comment: per hospice, through peg tube Activity: No Restrictions, As Tolerated Follow Up/Referral: per hospice Medications: per hospice Discharge Statement: "Patient was advised to return to the ER or call 911 if any headaches, dizziness, shortness of breath, chest pain, abdominal pain, bleeding, fevers, or worsening of medical condition. Patient was counseled about treatment plan, medications, possible side effects, patientverbalized understanding. All questions were answered to the best of my ability. This discharge took greater then 30 minutes in planning, reviewing documentation, counseling the patient, and discussing with other team members." ASSESSMENT ASSESSMENT Assessment sepsis + hypernatremia sp PEG tube placement JUAN CRUZ RESIDENT Mar 06, 2025 17:16
== END 2025-03-06 17:50 | disposition hospice, home (50) | DRG 720 ==
LOC: EDBD 13:00 → ER 13:00 → OVERFLOW 15:23 → TELE-WESTW 02-21 15:03 → WEST WING 02-28 09:45
PROVIDERS: ADMIT Student in an Organized Health Care Education/Training Program; ATTEND Radiology Diagnostic Radiology
PROC: 05HA33Z Insertion of Infusion Device into Left Brachial Vein, Percutaneous Approach (ICD-10-PCS; principal; 2025-02-24)
PROC: B54NZZA Ultrasonography of Left Upper Extremity Veins, Guidance (ICD-10-PCS; 2025-02-24)
PROC: 0DH63UZ Insertion of Feeding Device into Stomach, Percutaneous Approach (ICD-10-PCS; 2025-03-03)
DX: A41.9 Sepsis, unspecified organism (principal); J96.01 Acute respiratory failure with hypoxia; J69.0 Pneumonitis due to inhalation of food and vomit; G93.41 Metabolic encephalopathy; J15.69 Pneumonia due to other Gram-negative bacteria; E46 Unspecified protein-calorie malnutrition; E87.0 Hyperosmolality and hypernatremia; E87.3 Alkalosis; J15.9 Unspecified bacterial pneumonia; G10 Huntington's disease; R62.7 Adult failure to thrive; E87.1 Hypo-osmolality and hyponatremia; Z20.822 Contact with and (suspected) exposure to COVID-19; K59.00 Constipation, unspecified; K21.9 Gastro-esophageal reflux disease without esophagitis; N39.0 Urinary tract infection, site not specified; N35.919 Unspecified urethral stricture, male, unspecified site; F17.200 Nicotine dependence, unspecified, uncomplicated; E86.0 Dehydration; Z68.1 Body mass index [BMI] 19.9 or less, adult; E87.6 Hypokalemia; Z79.899 Other long term (current) drug therapy; Z93.1 Gastrostomy status; Z86.14 Personal history of Methicillin resistant Staphylococcus aureus infection; Z82.0 Family history of epilepsy and other diseases of the nervous system; Z74.01 Bed confinement status
CPT/HCPCS: 36415; 36600; 70450; 71045; 74021; 74176; 80048; 80053; 80074; 80076; 80202; 80320; 82010; 82140; 82607; 82746; 82805; 82962; 83036; 83605; 83735; 83930; 84100; 84295; 84439; 84443; 84481; 85025; 85610; 85730; 86850; 86900; 86901; 87040; 87081; 87426; 87804; 92610; 93005; 94640; 96361; 96365; 97163; 99152; 99291; G0378; J2185; J2250; J2470; J3480; Q9967